=== PATIENT | male | born 1960 | race African-American/Black ===

== ENCOUNTER 2016-12-21 22:04 | Emergency (ER) | payer OTHER ==
[~2016-12-21] VITALS: Ht 182.9 cm; Wt 76.5 kg
[~2016-12-21 22:04] MED LIST: ATEN50TA8 PO; LEVO50TA PO
[2016-12-21] MEDS ORDERED: ACETAMINOPHEN 500 MG TAB PO STA (22:32)
[2016-12-21 22:51] LABS: BASO % 0.2 %; BASO ABS # 0.01 K/uL (0-0.2); COMPLETE YES; EOS % 1.8 %; HEMATOCRIT 39.8 % (42-52); IG% 0.3 %; LYMPH % 34.7 %; LYMPH ABS # 2.29 K/uL (1.2-3.4); MEAN CELL VOLUME 94.1 fL (80-100); MEAN CORPUSCULAR HEMOGLOBIN 33.1 pg (25-34); MEAN CORPUSCULAR HGB CONC 35.2 g/dl (32-36); MEAN PLATELET VOLUME 9.8 fL (7.4-10.4); MONO % 5.6 %; NEUT % 57.4 %; PLATELET COUNT 190 K/uL (130-400); RED BLOOD COUNT 4.23 M/uL (4.7-6.1)
[2016-12-21 22:55] VITALS: Ht 182.9 cm; Wt 76.5 kg
--- NOTE | 2016-12-21 23:01 | DIAGNOSTIC IMAGING REPORT ---
CHEST ONE VIEW PORTABLE CLINICAL HISTORY: Shortness of breath. Chest pain. COMPARISON STUDY: Chest radiograph September or 2010. FINDINGS: Patient is rotated. No pneumothorax or pleural effusion is present. There is no consolidation to suggest pneumonia and there is no evidence of pulmonary edema. Cardiomediastinal silhouette is normal. The appearance of the chest is unchanged. IMPRESSION: No acute cardiopulmonary findings. Electronically signed by: Neto Franklin M.D. 12/21/2016 11:00 PM Dictated Date/Time: 12/21/2016 10:59 PM
[2016-12-21 23:03] VITALS: O2SAT 96
--- NOTE | 2016-12-21 23:13 | EMERGENCY ROOM VISIT NOTE ---
History Report prepared by Giovanni: Mona Jaimes Under the Supervision of: Dr. Jose Sewell M.D. 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 denies cp or NV History of Present Illness The patient is a 56 year old male who presents to the Emergency Room for a cardiac assessment. The patient states that he works 60 hours a week and has for 12 years. He reports that the past 2 months he gets short of breath. He states that he has felt weak for the past month and had headaches daily. He currently rate his pain as a 10/10 in severity. 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 He reports that he was told to come to the ED. The patient states he didn't come till he was done with work. The patient complains of dizziness. The patient denies current chest pain, shortness of breath, and abdominal pain. Source of History: patient Onset: 2 months ago Position: other (global) Symptom Intensity: 10/10 Quality: other (global) Timing: other (episode) Associated Symptoms: + headache, + weakness, No chest pain, No SOB, No abdominal pain Review of Systems See HPI for pertinent positives & negatives. A total of 10 systems reviewed and were otherwise negative. Past Medical & Surgical Medical Problems: (1) Cardiomyopathy (2) Hepatitis C (3) Hypertension (4) SOB (shortness of breath) Family History Patient reports no known family medical history. Social History Smoking Status: Current Every Day Smoker Marital Status: Housing Status: lives with family Occupation Status: employed Current/Historical Medications Scheduled Atenolol (Tenormin), 50 MG PO DAILY Enoxaparin (Lovenox), 80 MG SQ Q12H Levothyroxine Sodium (Levothyroxine Sodium), 50 MCG PO DAILY Warfarin Sod (Coumadin), 5 MG PO DAILY Allergies Coded Allergies: No Known Allergies (Verified , 12/21/16) Physical Exam Vital Signs Date Time Temp Pulse Resp B/P (MAP) Pulse Ox O2 Delivery O2 Flow Rate FiO2 12/22/16 00:13 36.5 64 16 156/99 97 12/21/16 23:03 96 Room Air 12/21/16 22:55 60 16 127/86 96 Room Air 12/21/16 22:30 65 12/21/16 22:12 36.5 71 20 130/98 96 Room Air Physical Exam GENERAL: Patient is a healthy-appearing well-nourished HEAD: Normocephalic atraumatic EYES: Ocular movements intact pupils equal and react to light OROPHARYNX mucous membranes are moist no exudates present no erythema or edema present NECK: Supple no nuchal rigidity CHEST: Good equal expansion LUNGS: Clear and equal to auscultation CARDIAC: Normal S1 and S2 ABDOMEN: Soft nontender no guarding BACK: No CVA tenderness EXTREMITIES: No pain upon palpation normal muscle strength in all groups no clubbing cyanosis or edema NEURO: Patient is following commands and answering questions appropriately. Alert and oriented x3 Cranial Nerves 2-12 grossly intact Medical Decision & Procedures ER Provider Diagnostic Interpretation: Radiology results as stated below per my review and radiologist interpretation: CHEST ONE VIEW PORTABLE CLINICAL HISTORY: Shortness of breath. Chest pain. COMPARISON STUDY: Chest radiograph September or 2010. FINDINGS: Patient is rotated. No pneumothorax or pleural effusion is present. There is no consolidation to suggest pneumonia and there is no evidence of pulmonary edema. Cardiomediastinal silhouette is normal. The appearance of the chest is unchanged. IMPRESSION: No acute cardiopulmonary findings. Electronically signed by: Neto Franklin M.D. 12/21/2016 11:00 PM Dictated Date/Time: 12/21/2016 10:59 PM Laboratory Results 12/21/16 22:37 Red Blood Count 4.23, Mean Corpuscular Volume 94.1, Mean Corpuscular Hemoglobin 33.1, Mean Corpuscular Hemoglobin Concent 35.2, Mean Platelet Volume 9.8, Neutrophils (%) (Auto) 57.4, Lymphocytes (%) (Auto) 34.7, Monocytes (%) (Auto) 5.6, Eosinophils (%) (Auto) 1.8, Basophils (%) (Auto) 0.2, Neutrophils # (Auto) 3.79, Lymphocytes # (Auto) 2.29, Monocytes # (Auto) 0.37, Eosinophils # (Auto) 0.12, Basophils # (Auto) 0.01 8/22/17 22:37 Test 12/21/16 22:37 White Blood Count 6.60 K/uL (4.8-10.8) Red Blood Count 4.23 M/uL (4.7-6.1) Hemoglobin 14.0 g/dL (14.0-18.0) Hematocrit 39.8 % (42-52) Mean Corpuscular Volume 94.1 fL (80-100) Mean Corpuscular Hemoglobin 33.1 pg (25-34) Mean Corpuscular Hemoglobin Concent 35.2 g/dl (32-36) Platelet Count 190 K/uL (130-400) Mean Platelet Volume 9.8 fL (7.4-10.4) Neutrophils (%) (Auto) 57.4 % Lymphocytes (%) (Auto) 34.7 % Monocytes (%) (Auto) 5.6 % Eosinophils (%) (Auto) 1.8 % Basophils (%) (Auto) 0.2 % Neutrophils # (Auto) 3.79 K/uL (1.4-6.5) Lymphocytes # (Auto) 2.29 K/uL (1.2-3.4) Monocytes # (Auto) 0.37 K/uL (0.11-0.59) Eosinophils # (Auto) 0.12 K/uL (0-0.5) Basophils # (Auto) 0.01 K/uL (0-0.2) RDW Standard Deviation 49.0 fL (36.4-46.3) RDW Coefficient of Variation 14.3 % (11.5-14.5) Immature Granulocyte % (Auto) 0.3 % Immature Granulocyte # (Auto) 0.02 K/uL (0.00-0.02) Anion Gap 6.0 mmol/L (3-11) Est Creatinine Clear Calc Drug Dose 58.8 ml/min Estimated GFR () 59.0 Estimated GFR (Non- 50.9 BUN/Creatinine Ratio 11.3 (10-20) Calcium Level 8.4 mg/dl (8.5-10.1) Total Bilirubin 1.1 mg/dl (0.2-1) Aspartate Amino Transf (AST/SGOT) 41 U/L (15-37) Alanine Aminotransferase (ALT/SGPT) 49 U/L (12-78) Alkaline Phosphatase 145 U/L (45-117) Total Creatine Kinase 252 U/L (39-308) Creatine Kinase MB 6.1 ng/ml (0.5-3.6) Creatine Kinase MB Ratio 2.4 (0-3.0) Troponin I 0.046 ng/ml (0-0.045) Pro-B-Type Natriuretic Peptide 2739 pg/ml (0-900) Total Protein 8.1 gm/dl (6.4-8.2) Albumin 3.4 gm/dl (3.4-5.0) Globulin 4.7 gm/dl (2.5-4.0) Albumin/Globulin Ratio 0.7 (0.9-2) Thyroid Stimulating Hormone (TSH) 0.331 uIu/ml (0.300-4.500) Free Thyroxine 1.12 ng/dl (0.80-1.60) Free Triiodothyronine 2.06 pg/ml (2.30-4.20) Chemistry Specimen Hemolysis Labs reviewed by ED physician. Medications Administered Medications (Trade) Dose Ordered Sig/Nikos Route Start Time Stop Time Status Last Admin Dose Admin Acetaminophen (Tylenol Tab) 1,000 mg NOW STAT PO 12/21/16 22:32 12/21/16 22:33 DC 12/21/16 22:53 1,000 MG Warfarin Sodium (Coumadin Tab) 5 mg NOW STAT PO 12/21/16 23:19 12/21/16 23:21 DC 12/21/16 23:38 5 MG Enoxaparin Sodium (Lovenox Inj) 80 mg NOW STAT SQ 12/21/16 23:29 12/21/16 23:30 DC 12/21/16 23:38 80 MG ECG Indication: chest pain Rate (beats per minute): 56 Rhythm: atrial fibrillation Findings: T-wave inversion (Lateral), no acute ischemic change, other (slow ventricular response) ED Course 2227: Past medical records reviewed. The patient was evaluated in room B2. A complete history and physical examination was performed. 2232: Ordered Tylenol Tab 1000 mg PO. 2319: Ordered Coumadin Tab 5 mg PO, Enoxaparin Sodium 1 ea SQ. 2323: I reevaluated the patient and he is doing well. 2329: Ordered Lovenox Inj 80 mg SQ. 2358: Upon reexamination the patient is resting comfortably. The patient is leaving against medical advice. The patient is ready for discharge. Medical Decision Differential diagnosis: Etiologies such as cardiac ischemia, aortic dissection, pulmonary embolism, pneumonia, pneumothorax, musculoskeletal, infections, pericarditis, myocarditis , esophageal rupture, gastrointestinal, as well as others were entertained. This is a 56-year-old male who presents emergency department complaining of shortness of breath that has been on life at least 2 months. The patient appears to be a new onset atrial fibrillation and with his cardiomyopathy an elevated troponin I strongly recommended that he be admitted to the hospital however the patient is adamantly refusing. Based on the fact that the patient isn't in atrial fibrillation I will start him on Lovenox and Coumadin. He is planning on following up with his PCP tomorrow. The patient has demonstrated no significant defect in the decision-making capacity to make choices. The encounter had a good level of communication with language the patient can easily understand. I feel trust was present and conveyed that our action/intentions were the best interest of the patient. The patient was given all relevant information and reiterated the explained risks and benefits. The patient explained the reasoning for refusing treatment clearly. The patient possesses and expresses a set of values and goals, the ability to communicate and understand, and an ability to reason and deliberate. Despite acting emphatically, attentively and with the utmost patient's the patient declined further treatment. I offered options, negotiated, and explored every reasonable choice. I must respect the patient's autonomy and that they feel that their choices are best for them despite the associated risks of leaving without completing the evaluation. The patient was informed about the findings as listed above. All questions were answered and he was pleased with the treatment. Return instructions were outlined and the patient was discharged in stable condition. Impression Primary Impression: Atrial fibrillation Scribe Attestation The scribe's documentation has been prepared under my direction and personally reviewed by me in its entirety. I confirm that the note above accurately reflects all work, treatment, procedures, and medical decision making performed by me. Departure Information Dispostion Against Medical Advice Referrals Graham Parson D.O. (PCP) Forms IMPORTANT VISIT INFORMATION Patient Instructions My [facility] Additional Instructions NEED Follow up with either Dr Chaudhari's office or Dr Parson or Return here You have been examined and treated today on an emergency basis only. This is not a substitute for, or an effort to provide, complete comprehensive medical care. It is impossible to recognize and treat all injuries or illnesses in a single emergency department visit. It is therefore important that you follow up closely with Dr Parson. Call as soon as possible for an appointment. Thank you for your time and consideration. I look forward to speaking with you again soon. Please don't hesitate to call us if you have any questions. Problem Qualifiers Primary Impression: Atrial fibrillation Atrial fibrillation type: unspecified Qualified Codes: I48.91 - Unspecified atrial fibrillation
[2016-12-21 23:17] LABS: BUN/CREATININE RATIO 11.3 (10-20); CALCIUM 8.4 mg/dl (8.5-10.1); CREATININE 1.5 mg/dl (0.60-1.40); POTASSIUM 3.4 mmol/L (3.5-5.1)
[2016-12-21] MEDS ORDERED: ENOXAPARIN 1 MG/KG SQ STA (23:19)
[2016-12-21] MEDS ORDERED: WARFARIN SOD 5 MG TAB PO STA (23:19)
[2016-12-21] MEDS ORDERED: ENOXAPARIN 80 MG/0.8 ML SYR SQ STA (23:29)
[2016-12-21 23:41] LABS: ALB/GLOB RATIO 0.7 (0.9-2); CKMB/CK RATIO 2.4 (0-3.0); THYROID STIMULATING HORMONE 0.331 uIu/ml (0.300-4.500)
[2016-12-22] MEDS ORDERED: WARF5TAB90 PO (00:02)
[2016-12-22] MEDS ORDERED: ENOX120I SQ (00:02)
[2016-12-22 00:13] VITALS: BP 156/99; PULSE 64; TEMP 36.5; O2SAT 97
[2016-12-22] MEDS ORDERED: LEVO50TA6 PO (23:59)
[2016-12-23] MEDS ORDERED: ENOX120I SQ
[2016-12-23] MEDS ORDERED: CMD5 PO (00:02)
[2016-12-28] MEDS ORDERED: LSN10 PO (11:48)
[2016-12-28] MEDS ORDERED: ASPEC81 PO (11:48)
[2016-12-28] MEDS ORDERED: NRV5 PO (11:48)
[2016-12-28] MEDS ORDERED: TPRSR50 PO (11:48)
[2016-12-28] MEDS ORDERED: CTP1 PO (11:48)
[2016-12-28] MEDS ORDERED: CMD5 PO (11:50)
[2016-12-28] MEDS ORDERED: WARF1TAB PO (11:50)
== END 2016-12-22 00:15 | disposition home or self-care (01) ==
LOC: C.EDB 22:06
DX: I48.91 Unspecified atrial fibrillation (principal); I42.9 Cardiomyopathy, unspecified; B19.20 Unspecified viral hepatitis C without hepatic coma; F17.210 Nicotine dependence, cigarettes, uncomplicated; Z79.899 Other long term (current) drug therapy

== ENCOUNTER 2016-12-22 22:53 | Inpatient (IN) | payer OTHER ==
[~2016-12-22] VITALS: Ht 182.9 cm; Wt 71.4 kg
[~2016-12-22 22:53] MED LIST changes: +ENOX120I SQ; +WARF5TAB90 PO
--- NOTE | 2016-12-22 23:23 | EMERGENCY ROOM VISIT NOTE ---
History Report prepared by Giovanni: Aurora Boles Under the Supervision of: Dr. Uday Yeh M.D. First contact with patient: 23:11 Chief Complaint: SHORTNESS OF BREATH Stated Complaint: CHEST PAIN History of Present Illness The patient is a 56 year old male who presents to the Emergency Room with complaints of constant shortness of breath and weakness for 2 months. The patient was in the ED yesterday for the same symptoms. The patient states that his PCP sent him to the ED yesterday. The patient denies nausea, vomiting, and swelling in his legs. He notes his weakness is increased when moving. The patient has a history of high blood pressure and is on thyroid medication. Source of History: patient Onset: 2 months ago Timing: constant Modifying Factors (Worsening): movement Associated Symptoms: + weakness, No nausea, No vomiting Note: Pt denies swelling in his legs Review of Systems See HPI for pertinent positives & negatives. A total of 10 systems reviewed and were otherwise negative. Past Medical & Surgical Medical Problems: (1) Cardiomyopathy (2) Hepatitis C (3) Hypertension (4) SOB (shortness of breath) Family History Patient reports no known family medical history. no pertinent family history stated Social History Smoking Status: Never Smoker Marital Status: Housing Status: lives with family Occupation Status: employed Current/Historical Medications Scheduled Atenolol (Tenormin), 50 MG PO DAILY Enoxaparin (Lovenox), 80 MG SQ Q12H Levothyroxine Sodium (Levothyroxine Sodium), 50 MCG PO DAILY Warfarin Sod (Coumadin), 5 MG PO DAILY Allergies Coded Allergies: No Known Allergies (Verified , 12/21/16) Physical Exam Vital Signs Date Time Temp Pulse Resp B/P (MAP) Pulse Ox O2 Delivery O2 Flow Rate FiO2 12/23/16 00:07 51 20 153/100 100 12/22/16 23:19 96 Room Air 12/22/16 23:01 36.6 70 16 164/101 98 Room Air Physical Exam GENERAL: Patient is tired appearing and in minimal distress HEENT: No acute trauma, normocephalic atraumatic, mucous membranes moist, no nasal congestion, no scleral icterus. NECK: No stridor, no adenopathy, no meningismus, trachea is midline. LUNGS: No dyspnea. Clear to auscultation and equal bilaterally. No wheeze, no rhonchi. HEART: Irregular, Mildly bradycardic ABDOMEN: Soft, nontender, bowel sounds positive, no masses appreciated, no peritonitis. BACK: No midline tenderness, no CVA tenderness EXTREMITIES: Normal motion all extremities, no cyanosis, no edema. NEUROLOGIC: Alert and oriented, no acute motor or sensory deficits, no focal weakness, cranial nerves grossly intact. SKIN: No rash, no jaundice, no diaphoresis. Medical Decision & Procedures Laboratory Results 12/22/16 23:15 Red Blood Count 4.23, Mean Corpuscular Volume 94.1, Mean Corpuscular Hemoglobin 33.1, Mean Corpuscular Hemoglobin Concent 35.2, Mean Platelet Volume 11.0, Neutrophils (%) (Auto) 45.3, Lymphocytes (%) (Auto) 41.4, Monocytes (%) (Auto) 10.1, Eosinophils (%) (Auto) 2.6, Basophils (%) (Auto) 0.4, Neutrophils # (Auto ) 2.25, Lymphocytes # (Auto) 2.06, Monocytes # (Auto) 0.50, Eosinophils # (Auto ) 0.13, Basophils # (Auto) 0.02 12/22/16 23:15 Test 12/22/16 23:15 White Blood Count 4.97 K/uL (4.8-10.8) Red Blood Count 4.23 M/uL (4.7-6.1) Hemoglobin 14.0 g/dL (14.0-18.0) Hematocrit 39.8 % (42-52) Mean Corpuscular Volume 94.1 fL (80-100) Mean Corpuscular Hemoglobin 33.1 pg (25-34) Mean Corpuscular Hemoglobin Concent 35.2 g/dl (32-36) Platelet Count 207 K/uL (130-400) Mean Platelet Volume 11.0 fL (7.4-10.4) Neutrophils (%) (Auto) 45.3 % Lymphocytes (%) (Auto) 41.4 % Monocytes (%) (Auto) 10.1 % Eosinophils (%) (Auto) 2.6 % Basophils (%) (Auto) 0.4 % Neutrophils # (Auto) 2.25 K/uL (1.4-6.5) Lymphocytes # (Auto) 2.06 K/uL (1.2-3.4) Monocytes # (Auto) 0.50 K/uL (0.11-0.59) Eosinophils # (Auto) 0.13 K/uL (0-0.5) Basophils # (Auto) 0.02 K/uL (0-0.2) RDW Standard Deviation 48.7 fL (36.4-46.3) RDW Coefficient of Variation 14.2 % (11.5-14.5) Immature Granulocyte % (Auto) 0.2 % Immature Granulocyte # (Auto) 0.01 K/uL (0.00-0.02) Prothrombin Time 10.4 SECONDS (9.0-12.0) Prothromb Time International Ratio 1.0 (0.9-1.1) Activated Partial Thromboplast Time 28.4 SECONDS (21.0-31.0) Partial Thromboplastin Ratio 1.1 D-Dimer 470 ug/L FEU (0-500) Anion Gap 3.0 mmol/L (3-11) Est Creatinine Clear Calc Drug Dose 64.7 ml/min Estimated GFR () 70.2 Estimated GFR (Non- 60.6 BUN/Creatinine Ratio 11.5 (10-20) Calcium Level 8.8 mg/dl (8.5-10.1) Magnesium Level 2.0 mg/dl (1.8-2.4) Total Bilirubin 1.1 mg/dl (0.2-1) Direct Bilirubin 0.4 mg/dl (0-0.2) Aspartate Amino Transf (AST/SGOT) 41 U/L (15-37) Alanine Aminotransferase (ALT/SGPT) 46 U/L (12-78) Alkaline Phosphatase 134 U/L (45-117) Total Creatine Kinase 230 U/L (39-308) Creatine Kinase MB 5.8 ng/ml (0.5-3.6) Creatine Kinase MB Ratio 2.5 (0-3.0) Troponin I 0.051 ng/ml (0-0.045) Pro-B-Type Natriuretic Peptide 3237 pg/ml (0-900) Total Protein 8.1 gm/dl (6.4-8.2) Albumin 3.5 gm/dl (3.4-5.0) Thyroid Stimulating Hormone (TSH) 0.533 uIu/ml (0.300-4.500) Free Thyroxine 1.08 ng/dl (0.80-1.60) Laboratory results as reviewed by me. Medications Administered Medications (Trade) Dose Ordered Sig/Nikos Route Start Time Stop Time Status Last Admin Dose Admin Potassium Chloride (Klor-Con M10) 40 meq NOW STAT PO 12/23/16 00:31 12/23/16 00:37 DC 12/23/16 00:56 40 MEQ ECG Indication: SOB/dyspnea Rate (beats per minute): 66 Rhythm: atrial fibrillation Findings: T-wave inversion (Lateral), other (No STEMI) Comparison ECG Date: 12/21/16 Change: no significant change ED Course 231: The patient was evaluated in room B12B. A complete history and physical exam was performed. 0030: Discussed the patient's case with Dr. Messer. The patient will be evaluated for further treatment and disposition. 0040: Upon reevaluation, the patient is resting. Discussed results and treatment plan with the patient. He verbalized understanding and agreement with the treatment plan. The patient will be evaluated for further management. Medical Decision Differential: Afib, CHF, ACS, Pulmonary Embolism, Electrolyte abnormality, Liver Failure, Dissection, amongst other etiologies entertained. 56 yr old male with generalized weakness, fatigue, shortness of breath, and heart palpitations. Seen yesterday for this and noted need for admission but he declined. Admits he went to work today but was severely fatigued throughout this and unable to even do his normal duties. He is in new onset Afib which is clearly symptomatic, he has mild Trop elevation though this is stable to yesterdays. BP improving without intervention here. I do not feel that he is doing well as outpatient thus need to come in. Already on blood thinner started yesterday. Medication Reconcilliation Current Medication List: was personally reviewed by me Blood Pressure Screening Patient's blood pressure: Elevated blood pressure (karlene be monitored by hospitalist) Consults Time Called: 27 Consulting Physician: Dr. Messer Returned Call: [phone] Discussed the patient's case. The patient will be evaluated for further treatment and disposition. Impression Primary Impression: A-fib Additional Impressions: Elevated troponin HTN (hypertension) Generalized weakness Scribe Attestation The scribe's documentation has been prepared under my direction and personally reviewed by me in its entirety. I confirm that the note above accurately reflects all work, treatment, procedures, and medical decision making performed by me. Departure Information Dispostion Being Evaluated By Hospitalist Referrals No Doctor, Assigned (PCP) Patient Instructions My [facility] Problem Qualifiers
[2016-12-22 23:28] LABS: BASO % 0.4 %; BASO ABS # 0.02 K/uL (0-0.2); COMPLETE YES; EOS % 2.6 %; HEMATOCRIT 39.8 % (42-52); IG% 0.2 %; LYMPH % 41.4 %; LYMPH ABS # 2.06 K/uL (1.2-3.4); MEAN CELL VOLUME 94.1 fL (80-100); MEAN CORPUSCULAR HEMOGLOBIN 33.1 pg (25-34); MEAN CORPUSCULAR HGB CONC 35.2 g/dl (32-36); MONO % 10.1 %; NEUT % 45.3 %; PLATELET COUNT 207 K/uL (130-400); RED BLOOD COUNT 4.23 M/uL (4.7-6.1); WHITE BLOOD COUNT 4.97 K/uL (4.8-10.8)
[2016-12-22 23:43] LABS: PARTIAL THROMBOPLASTIN RATIO 1.1; PROTHROMBIN TIME (PATIENT) 10.4 SECONDS (9.0-12.0)
[2016-12-22 23:47] LABS: BUN/CREATININE RATIO 11.5 (10-20); CALCIUM 8.8 mg/dl (8.5-10.1); CREATININE 1.3 mg/dl (0.60-1.40); POTASSIUM 3.4 mmol/L (3.5-5.1)
[2016-12-22] MEDS ORDERED: LEVO50TA6 PO (23:59)
[2016-12-23] VITALS (17 sets, daily range): BP systolic 155–208; BP diastolic 90–146; PULSE 56–74; TEMP 36.5–37; O2SAT 97–100; Ht 182.9 cm; Wt 71.4 kg
[2016-12-23] MEDS ORDERED: ENOX120I SQ
[2016-12-23] MEDS ORDERED: CMD5 PO (00:02)
[2016-12-23 00:14] LABS: CKMB/CK RATIO 2.5 (0-3.0); THYROID STIMULATING HORMONE 0.533 uIu/ml (0.300-4.500)
[2016-12-23] MEDS ORDERED: POTASSIUM CHLORIDE 10 MEQ TABCR PO STA (00:31)
[2016-12-23] MEDS ORDERED: ONDANSETRON INJ 2 MG/ML 2 ML VIAL IV PRN (00:45)
[2016-12-23] MEDS ORDERED: NITROGLYCERIN 0.4 MG SL PER TAB CHARGE SL PRN (00:45)
[2016-12-23] MEDS ORDERED: ENOXAPARIN 120 MG/0.8 ML SYR SQ SCH (00:45)
[2016-12-23] MEDS ORDERED: POLYETHYLENE (MIRALAX) 17 GM PACK PO PRN (00:45)
[2016-12-23] MEDS ORDERED: MAGNESIUM HYDROXIDE SUSP 30 ML UDC PO PRN (00:45)
[2016-12-23] MEDS ORDERED: ACETAMINOPHEN 325 MG TAB PO PRN (00:45)
[2016-12-23] MEDS ORDERED: ALUMINUM/MAGNESIUM/SIMETH (MAALOX MAX) 30 ML UDC PO PRN (00:45)
[2016-12-23] MEDS ORDERED: METOPROLOL TARTRATE 1 MG/ML VIAL IV PRN (00:45)
[2016-12-23] MEDS ORDERED: ZOLPIDEM TARTRATE 5 MG TAB PO PRN (00:45)
--- NOTE | 2016-12-23 00:46 | History and Physical ---
History & Physical Date & Time of Service: Dec 23, 2016 at 00:44 Chief Complaint: Chest Pain Primary Care Physician: Graham Parson D.O. History of Present Illness Source: patient This is 56 yo M with past medical hx of Hep C /chronic liver disease / hypothyroidisms presented to ER with complain of SOB , BARRIOS pt mentions he has been experiencing the symptoms for past 2 months , unable to climb up 1 flight of stairs for SOB and fatigue , getting dizzy and lightheaded with activity denies of any chest pain or symptom of palpitation pt was seen in Office of Dr Parson for the symptom on 12/21/16 -was sent to ER for evaluation , pt came to ER yesterday evening -found to be in Aflutter /Afib with rate controlled , pt was asked to be admitted in hospital for further cardiac work up and cardiology eval he refused to be admitted -as he needed to be at work tomorrow , got discharged form ER with Lovenox Sub q and Coumadin pt never managed to sisal picker his meds form Pharmacy was scheduled to see Dr Loera Cardiology at work -he continued to have severe SOB /BARRIOS and Dizzy spell -decided to return to ER Past Medical/Surgical History Medical Problems: (1) Hypertension Status: Chronic Family History Patient reports no known family medical history. Social History Smoking Status: Never Smoker Marital Status: Housing status: lives with family Occupational Status: employed Immunizations History of Influenza Vaccine: Yes History of Tetanus Vaccine?: Yes History of Pneumococcal: Yes History of Hepatitis B Vaccine: Unknown Multi-Drug Resistant Organisms History of MDRO: No Allergies Coded Allergies: No Known Allergies (Verified , 12/21/16) Home Medications Scheduled Atenolol (Tenormin), 50 MG PO DAILY Enoxaparin (Lovenox), 80 MG SQ Q12H Levothyroxine Sodium (Levothyroxine Sodium), 50 MCG PO DAILY Warfarin Sod (Coumadin), 5 MG PO DAILY Review of Systems Constitutional: + weakness, + fatigue Eyes: No worsening of vision, No eye pain, No redness, No discharge, No diplopia, No problem reported ENT: No hearing loss, No unusual epistaxis, No nasal symptoms, No sore throat, No tinnitus, No dental problems, No trouble swallowing, No problem reported Respiratory: + shortness of breath, + dyspnea on exertion Cardiovascular: + palpitations Abdomen: No pain, No nausea, No vomiting, No diarrhea, No constipation, No GI bleeding, No problem reported Musculoskeletal: No joint pain, No muscle pain, No swelling, No calf pain, No problem reported Genitourinary - Male: No hematuria, No dysuria, No urinary frequency, No urinary urgency, No urinary hesitancy, No urinary retention, No urinary incontinence, No penile discharge, No lesions, No impotence, No problem reported Neurologic: + weakness, + problem reported (dizzy spell /lightheaded) Physical Exam Vital Signs Date Time Temp Pulse Resp B/P (MAP) Pulse Ox O2 Delivery O2 Flow Rate FiO2 12/23/16 00:07 51 20 153/100 100 12/22/16 23:19 96 Room Air 12/22/16 23:01 36.6 70 16 164/101 98 Room Air General Appearance: no apparent distress Head: normocephalic, atraumatic Eyes: + abnormal sclerae exam (mildly icteric ) Neck: no JVD Respiratory/Chest: lungs clear, normal breath sounds, no respiratory distress Cardiovascular: + irregularly irregular Abdomen/GI: non tender, soft Extremities/Musculoskelatal: normal inspection, no calf tenderness, normal capillary refill, no pedal edema Neurologic/Psych: alert, normal mood/affect, oriented x 3 Diagnostics Laboratory Results Results Past 24 Hours Test 12/22/16 23:15 12/23/16 00:35 Range/Units White Blood Count 4.97 4.8-10.8 K/uL Red Blood Count 4.23 4.7-6.1 M/uL Hemoglobin 14.0 14.0-18.0 g/dL Hematocrit 39.8 42-52 % Mean Corpuscular Volume 94.1 80-100 fL Mean Corpuscular Hemoglobin 33.1 25-34 pg Mean Corpuscular Hemoglobin Concent 35.2 32-36 g/dl Platelet Count 207 130-400 K/uL Mean Platelet Volume 11.0 7.4-10.4 fL Neutrophils (%) (Auto) 45.3 % Lymphocytes (%) (Auto) 41.4 % Monocytes (%) (Auto) 10.1 % Eosinophils (%) (Auto) 2.6 % Basophils (%) (Auto) 0.4 % Neutrophils # (Auto) 2.25 1.4-6.5 K/uL Lymphocytes # (Auto) 2.06 1.2-3.4 K/uL Monocytes # (Auto) 0.50 0.11-0.59 K/uL Eosinophils # (Auto) 0.13 0-0.5 K/uL Basophils # (Auto) 0.02 0-0.2 K/uL RDW Standard Deviation 48.7 36.4-46.3 fL RDW Coefficient of Variation 14.2 11.5-14.5 % Immature Granulocyte % (Auto) 0.2 % Immature Granulocyte # (Auto) 0.01 0.00-0.02 K/uL Prothrombin Time 10.4 9.0-12.0 SECONDS Prothromb Time International Ratio 1.0 0.9-1.1 Activated Partial Thromboplast Time 28.4 21.0-31.0 SECONDS Partial Thromboplastin Ratio 1.1 Sodium Level 140 136-145 mmol/L Potassium Level 3.4 3.5-5.1 mmol/L Chloride Level 105 98-107 mmol/L Carbon Dioxide Level 32 21-32 mmol/L Anion Gap 3.0 3-11 mmol/L Blood Urea Nitrogen 15 7-18 mg/dl Creatinine 1.30 0.60-1.40 mg/dl Est Creatinine Clear Calc Drug Dose 64.7 ml/min Estimated GFR () 70.2 Estimated GFR (Non- 60.6 BUN/Creatinine Ratio 11.5 10-20 Random Glucose 81 70-99 mg/dl Calcium Level 8.8 8.5-10.1 mg/dl Magnesium Level 2.0 1.8-2.4 mg/dl Total Bilirubin 1.1 0.2-1 mg/dl Direct Bilirubin 0.4 0-0.2 mg/dl Aspartate Amino Transf (AST/SGOT) 41 15-37 U/L Alanine Aminotransferase (ALT/SGPT) 46 12-78 U/L Alkaline Phosphatase 134 45-117 U/L Total Creatine Kinase 230 39-308 U/L Creatine Kinase MB 5.8 0.5-3.6 ng/ml Creatine Kinase MB Ratio 2.5 0-3.0 Troponin I 0.051 0-0.045 ng/ml Total Protein 8.1 6.4-8.2 gm/dl Albumin 3.5 3.4-5.0 gm/dl Thyroid Stimulating Hormone (TSH) 0.533 0.300-4.500 uIu/ml Free Thyroxine 1.08 0.80-1.60 ng/dl Diagnostic Radiology Cxray ; no infiltrate /effusion noted in initial impression ( official reading pending ) EKG Afib /Aflutter @ 56 bpm Impression Assessment and Plan AFIB/Aflutter ( NEW DIAGNOSIS ) ; presents with symptom of BARRIOS /SOB for 2 months with intermittent dizzy spell and lightheadedness confirmed with EKG yesterday in ED and today -remains rate controlled admit to tele ordered for Lopressor 12.5 mg BID ECHO /serial cardiac markers ordered D Dimer 470 -symptom due to PE very unlikely cardiology eval requested IV heparin wt based protocol initiated ( pt had not received any Lovenox dose after yesterday ER visit ) Coumadin 5 mg PO daily ( may not be a candidate for NOAC due to chronic liver disease ) HYPERTENSIVE URGENCY : BP elevated to > 170 was on Atenolol discontinued as Lopressor added for arrhythmia Lisinopril 5 mg daily added cardiology consulted MILD ELEVATION OF TROPONIN : possible due to above need to r/o ACS serial cardiac markers , ECHO asses cardiac wall motion abnormality on IV heparin added Aspirin 81 mg daily /Lopressor fasting lipid panel ordered in AM labs CHRONIC HEPATITIS ( HX OF HEP C ) follows with Madina LORENZO at [facility] not on any treatment for past 3 yrs elevated LFT possible due to above repeat LFT's ordered in AM pt will continue to follow up with GI as out pt HYPOTHYROIDISM : cont Levothyroxine TSH /Free T4 -wnl HYPOKALEMIA : replaced given cardiac arrhythmia follow lytes -K , mg closely FULL CODE DVT PROPHYLAXIS : IV heparin wt based protocol DISPOSITION : expected to be discharged home when medically stable Medicine follow up with Dr Parson will need Cardiology follow up as out pt Level of Care Telemetry Resuscitation Status FULL RESUSCITATION VTE Prophylaxis VTE Risk Assessment Done? Y/N: Yes Risk Level: Moderate Given or contraindicated: Enoxaparin (Lovenox)SQ, Warfarin (Coumadin), Other Anticoagulation (iv heparin ) Additional Copies To Graham Parson D.O.
[2016-12-23] MEDS ORDERED: METOPROLOL TARTRATE 50 MG TAB PO STA (00:51)
[2016-12-23] MEDS ORDERED: LORAZEPAM 0.5 MG TAB PO STA (01:10)
[2016-12-23] MEDS ORDERED: LORAZEPAM 0.5 MG TAB PO PRN (01:15)
[2016-12-23] MEDS ORDERED: HydrALAZINE HCL 20 MG/ML VIAL IV. STA (01:58)
[2016-12-23] MEDS ORDERED: HydrALAZINE HCL 20 MG/ML VIAL ONE (02:02)
[2016-12-23] MEDS ORDERED: HEPARIN IV BOLUS 6,000 UNIT in SYRINGE 0 ML IV STA (02:39)
[2016-12-23] MEDS: HEPARIN 25,000 UNIT/500ML D5W 500 ML IV PRN ×3 (02:48→23:32)
[2016-12-23 03:27] LABS: BENZODIAZEPINE, URINE NEG (NEG); COCAINE,URINE NEG (NEG); PHENCYCLIDINE, URINE NEG (NEG)
[2016-12-23] MEDS ORDERED: NURSING VERBAL MED ORDER ONE (05:00)
[2016-12-23] MEDS: LEVOTHYROXINE 50 MCG TAB PO SCH (06:39)
--- NOTE | 2016-12-23 06:46 | DIAGNOSTIC IMAGING REPORT ---
CHEST ONE VIEW PORTABLE HISTORY: 56 years-old Male acute shortness of breath. COMPARISON: Chest radiograph December 21, 2016. TECHNIQUE: Portable upright AP view of the chest FINDINGS: Cardiac silhouette is upper limits of normal. Mediastinal contours are within normal limits. There is no pneumothorax, pleural effusion or focal airspace consolidation. There is mild convex right curvature of the lower thoracic spine, unchanged. Bones appear grossly intact. IMPRESSION: No acute cardiopulmonary process. The above report was generated using voice recognition software. It may contain grammatical, syntax or spelling errors. Electronically signed by: Juan Galvan M.D. 12/23/2016 6:45 AM Dictated Date/Time: 12/23/2016 6:44 AM
[2016-12-23] MEDS: ASPIRIN 81 MG ECTAB PO SCH (07:37)
--- NOTE | 2016-12-23 08:56 | ECHOCARDIOGRAM REPORT ---
*NOTICE TO RECEIVING REPUBLICAN AGENCY This information is strictly Confidential and protected under [place] law. [place] law prohibits you from making any further disclosure of this information unless further disclosure is expressly permitted by the written consent of the person to whom it pertains or is authorized by law. A general authorization for the release of medical or other information is not sufficient for this purpose. Hospital accepts no responsibility if the information is made available to any other person, INCLUDING THE PATIENT. Interpretation Summary * Name: LUCIA CÁRDENAS Study Date: 12/23/2016 06:39 AM BP: 180/115 mmHg * Patient Location: .2T\S\S237\S\1 HR: 74 * : 1960 (M/d/yyyy) Gender: Male Height: 72 in * Age: 56 yrs Ethnicity: AA Weight: 160 lb * Ordering Physician: Tammy Vázquez * Referring Physician: Graham Parson D.O. * Performed By: Shameka Zamora * * Reason For Study: A-FIB * BSA: 1.9 m2 * -- Conclusions -- * The left ventricle is normal in size. * There is severe concentric left ventricular hypertrophy. * The left ventricular wall motion is normal. * Ejection Fraction = 55-60%. * The left atrium is moderately dilated. * The right atrium is mildly dilated. * There is moderate to severe mitral regurgitation. * There is mild tricuspid regurgitation. Procedure Details * A complete two-dimensional transthoracic echocardiogram was performed (2D, M-mode, Doppler and color flow Doppler). Left Ventricle * The left ventricle is normal in size. * There is severe concentric left ventricular hypertrophy. * Ejection Fraction = 55-60%. * Left ventricular systolic function is normal. * The left ventricular wall motion is normal. Right Ventricle * The right ventricle is normal in size and function. Atria * The left atrium is moderately dilated. * The right atrium is mildly dilated. * No ASD detected; PFO is not assessed. Mitral Valve * The mitral valve anatomy is normal. * There is no mitral valve stenosis. * There is moderate to severe mitral regurgitation. Tricuspid Valve * The tricuspid valve anatomy is normal. * There is no tricuspid stenosis. * There is mild tricuspid regurgitation. Aortic Valve * The aortic valve is trileaflet. * Aortic valve sclerosis mild, without significant aortic valvular stenosis. * No hemodynamically significant valvular aortic stenosis. * Trace aortic regurgitation. Pulmonic Valve * The pulmonic valve is not well visualized. Great Vessels * The aortic root is normal size. Pericardium/Pleural * There is no pericardial effusion. Great Vessels * Normal inferior vena cava diameter and respiratory variation suggests normal central venous pressure. Left Ventricular Diastolic Function * Diastolic dysfunction, Grade II (pseudonormalization pattern). MMode 2D Measurements and Calculations IVSd 1.7 cm IVSs 1.8 cm LVIDd 4.5 cm LVIDs 3.4 cm LVPWd 1.6 cm LVPWs 2.0 cm IVS/LVPW 1.1 FS 24.1 % EDV(Teich) 90.3 ml ESV(Teich) 46.8 ml EF(Teich) 48.1 % EDV(cubed) 88.4 ml ESV(cubed) 38.7 ml EF(cubed) 56.3 % % IVS thick 4.0 % % LVPW thick 29.3 % LV mass(C)d 315.3 grams LV mass(C)dI 162.7 grams/m\S\2 LV mass(C)s 280.8 grams LV mass(C)sI 144.9 grams/m\S\2 CO(Teich) 2.4 l/min CI(Teich) 1.2 l/min/m\S\2 SV(Teich) 43.5 ml SI(Teich) 22.4 ml/m\S\2 CO(cubed) 2.7 l/min CI(cubed) 1.4 l/min/m\S\2 SV(cubed) 49.8 ml SI(cubed) 25.7 ml/m\S\2 ACS 1.7 cm LA dimension 4.4 cm asc Aorta Diam 3.5 cm LVOT diam 2.0 cm LVOT area 3.2 cm\S\2 LVAd ap4 21.9 cm\S\2 LVLd ap4 7.0 cm EDV(MOD-sp4) 56.9 ml LVAs ap4 13.7 cm\S\2 LVLs ap4 5.7 cm ESV(MOD-sp4) 28.6 ml EF(MOD-sp4) 49.7 % LVAd ap2 27.5 cm\S\2 LVLd ap2 7.6 cm EDV(MOD-sp2) 90.8 ml LVAs ap2 16.3 cm\S\2 LVLs ap2 5.7 cm ESV(MOD-sp2) 45.2 ml EF(MOD-sp2) 50.2 % CO(MOD-sp4) 1.6 l/min CI(MOD-sp4) 0.80 l/min/m\S\2 SV(MOD-sp4) 28.3 ml SI(MOD-sp4) 14.6 ml/m\S\2 CO(MOD-sp2) 2.5 l/min CI(MOD-sp2) 1.3 l/min/m\S\2 SV(MOD-sp2) 45.6 ml SI(MOD-sp2) 23.5 ml/m\S\2 Doppler Measurements and Calculations MV E max sharifa 83.9 cm/sec MV dec time 0.16 sec Ao V2 max 106.0 cm/sec Ao max PG 4.5 mmHg Ao max PG (full) 1.2 mmHg KEITH(V,A) 2.7 cm\S\2 KEITH(V,D) 2.7 cm\S\2 LV V1 max PG 3.3 mmHg LV V1 max 91.2 cm/sec MR max sharifa 577.5 cm/sec MR max PG 133.4 mmHg MR mean sharifa 431.7 cm/sec MR mean PG 84.6 mmHg MR VTI 200.6 cm MR PISA 2.9 cm\S\2 MR PISA radius 0.68 cm PA V2 max 54.8 cm/sec PA max PG 1.2 mmHg PI end-d sharifa 133.0 cm/sec TR max sharifa 285.8 cm/sec
[2016-12-23] MEDS ORDERED: LISINOPRIL 5 MG TAB PO SCH ×2 (09:00→17:00)
[2016-12-23] MEDS ORDERED: METOPROLOL TARTRATE 25 MG TAB PO SCH (09:00)
[2016-12-23 09:13] LABS: HEMATOCRIT 40.5 % (42-52); MEAN CORPUSCULAR HEMOGLOBIN 33.2 pg (25-34); PLATELET COUNT 181 K/uL (130-400); WHITE BLOOD COUNT 4.17 K/uL (4.8-10.8)
[2016-12-23 09:34] LABS: BUN/CREATININE RATIO 11.4 (10-20); CHOLESTEROL/HDL RATIO 3.3; CKMB/CK RATIO 2.5 (0-3.0); CREATININE 0.99 mg/dl (0.60-1.40); POTASSIUM 3.3 mmol/L (3.5-5.1)
[2016-12-23 09:35] LABS: PARTIAL THROMBOPLASTIN RATIO 3.5
[2016-12-23] MEDS ORDERED: METOPROLOL TARTRATE 25 MG TAB PO ONE (11:00)
[2016-12-23] MEDS ORDERED: AMLODIPINE BESYLATE 5 MG TAB PO ONE (11:00)
[2016-12-23] MEDS ORDERED: POTASSIUM CHLORIDE 10 MEQ TABCR PO ONE (11:00)
[2016-12-23] MEDS: METOPROLOL TARTRATE 25 MG TAB PO SCH ×2 (13:43→19:51)
--- NOTE | 2016-12-23 14:14 | CARDIOLOGY CONSULTATION ---
DATE OF CONSULTATION: 12/23/2016 REFERRING: Dr. Vázquez. PRIMARY CARE PHYSICIAN: Dr. Parson. INDICATIONS: AFib flutter and exertional dyspnea. HISTORY OF PRESENT ILLNESS: The patient is a 56-year-old male whose history is notable for: 1. Longstanding hypertension. 2. Hypothyroidism, on replacement. 3. Hepatitis C, chronic hepatic disease. The patient presents now after recent evaluation on 12/21/2016 with ER referral for newly noted, AFib flutter, complaints of 1-2 month history of exertional dyspnea and dizziness. At that time, the patient declined admission and was discharged on plans for Lovenox subcutaneous with conversion to Coumadin. He re-reported to the Emergency Room on 12/22/2016 with increasing symptoms of exertional dizziness once again. On presentation, heart rates were relatively well controlled though blood pressure was markedly elevated. He has been referred for hospitalization and further evaluation. He notes no prior history of cardiac disease, notes no history of specific chest pains. He has not been aware of any sense of tachy palpitations. Does feel dizzy and lightheaded when climbing stairs and on exerting himself. Notes no leg pain or cramping. Notes no recent fevers, chills or infections. Notes blood pressures in the past have been labile and elevated at times. Notes no acute weight loss or gain. Does note some sleep disturbances. Notes no fevers, chills or productive cough. Uses no alcohol products. ALLERGIES: None. MEDICATIONS PRIOR TO HOSPITALIZATION: Atenolol 50 mg per day and levothyroxine 137 mcg p.o. daily. PAST SURGICAL HISTORY: None. FAMILY HISTORY: Familial history is not specifically notable for cardiac disease Notes malignancies in family history. SOCIAL HISTORY: The patient works doing [employer]. 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 He smokes 1 pack of cigarettes per week. Uses marijuana on a near daily basis. Uses no other significant [id number]-piqszlv medications. Avoids alcohol. PHYSICAL EXAMINATION: GENERAL: The patient is a thin male currently in no acute distress, though does complain of mild breathlessness when up to the bathroom. VITAL SIGNS: Heart rate 63, blood pressure is 169/90. HEENT: Normocephalic and atraumatic. Nares without discharge. Throat was clear. NECK: Supple without thyromegaly, lymphadenopathy, JVD. There are no carotid bruits. Carotid pulses are 2/4 without delay with brisk upstroke. LUNGS: Clear to auscultation. CARDIOVASCULAR: Regular with normal S1, S2. There is no murmur, gallop or rub. ABDOMEN: Soft, nontender. There is no palpable hepatosplenomegaly. There is no hepatojugular reflux. There are no abdominal bruits audible. EXTREMITIES: Without cyanosis or clubbing. There is no peripheral edema. NEUROLOGIC: The patient is answering questions, moving extremities with strength. There is no brachiofemoral delay on pulses. LABORATORY DATA: Echocardiogram today demonstrates normal left ventricular size and function with severe left ventricular hypertrophy, [id number] right biatrial enlargement, and aozrpoaz-qf-jbtweo mitral insufficiency. LABORATORY STUDIES: White cell count is 4.2, hemoglobin is 14.6, platelet count is 181,000. Electrolytes this morning, sodium is 142, potassium is 3.3, chloride is 109, bicarbonate is 29, BUN is 11, creatinine is 0.99. Troponins are elevated mildly but flat at 0.05 and 0.05. Chest x-ray reveals no infiltrate or edema. AST is mildly elevated at 41. Cholesterol is 102 with an LDL of 82 and HDL of 45. TSH is 0.53, free T4 of 1.08. EKG reveals AFib flutter at a rate of 60 with voltage criteria for left ventricular hypertrophy and deep T-wave inversions crossed across the lateral precordial leads V4, 5 and 6 consistent with strain pattern. IMPRESSION: A 56-year-old male with newly noted atrial flutter and complaints of exertional dyspnea with activities, marked hypertension and hypertensive urgency. PLAN: Severe LVH is noted on echocardiogram and EKGs are consistent with strain pattern. We will continue anticoagulation as ordered. Ultimate plans for conversion to Coumadin, possible consideration for conversion to sinus rhythm in the future. In the meantime, hypertension will be controlled. We will increase beta trevor back up to metoprolol 25 mg 3 times per day as well as adding lisinopril as already ordered as well as amlodipine at 5 mg per day, first dose today. Potassium will be supplemented. We will continue to follow up with the patient in the hospital. The patient will be kept n.p.o. after midnight tonight to allow consideration of future procedures, though current findings do not suggest ischemic heart disease rather than hypertensive urgency with clinical decline. MTDD
[2016-12-23 15:25] LABS: CKMB/CK RATIO 2.4 (0-3.0)
[2016-12-23] MEDS: WARFARIN SOD 5 MG TAB PO SCH (15:32)
[2016-12-23] MEDS ORDERED: WARFARIN SOD 5 MG TAB PO SCH (16:00)
[2016-12-23 16:46] LABS: PARTIAL THROMBOPLASTIN RATIO 2.6
[2016-12-23] MEDS: CLONIDINE HCL 0.1 MG TAB PO PRN (19:52)
--- NOTE | 2016-12-23 21:31 | Progress Note ---
Medicine Progress Note Date & Time of Visit: Dec 23, 2016 at ~ 15:00 . Subjective Persistent dyspnea. No cough. No chest pain. No nausea or vomiting. Persistent headache. . Objective Last 8 Hrs Date Time Temp Pulse Resp B/P (MAP) Pulse Ox O2 Delivery O2 Flow Rate FiO2 12/23/16 20:01 Room Air 12/23/16 19:49 68 165/120 (135) 12/23/16 19:00 36.7 73 18 186/127 (146) 100 Room Air 181/130 (147) 12/23/16 17:12 69 178/120 (139) 176/118 (137) 12/23/16 16:32 74 181/108 (132) 98 Room Air 12/23/16 16:27 Room Air 12/23/16 15:13 36.6 71 18 171/115 (133) 97 Room Air 193/107 (135) 12/23/16 13:41 163/121 (135) 173/99 (123) Physical Exam: General- no distress Neck- no JVD Lungs- clear Heart- irregular Abdomen- + BS, soft, nontender Extremities- no pretibial edema or calf tenderness Neuro- alert . Laboratory Results: Last 24 Hours Test 12/22/16 23:15 12/23/16 03:00 12/23/16 08:58 12/23/16 14:40 White Blood Count 4.97 K/uL 4.17 K/uL Red Blood Count 4.23 M/uL 4.40 M/uL Hemoglobin 14.0 g/dL 14.6 g/dL Hematocrit 39.8 % 40.5 % Mean Corpuscular Volume 94.1 fL 92.0 fL Mean Corpuscular Hemoglobin 33.1 pg 33.2 pg Mean Corpuscular Hemoglobin Concent 35.2 g/dl 36.0 g/dl Platelet Count 207 K/uL 181 K/uL Mean Platelet Volume 11.0 fL 10.0 fL Neutrophils (%) (Auto) 45.3 % Lymphocytes (%) (Auto) 41.4 % Monocytes (%) (Auto) 10.1 % Eosinophils (%) (Auto) 2.6 % Basophils (%) (Auto) 0.4 % Neutrophils # (Auto) 2.25 K/uL Lymphocytes # (Auto) 2.06 K/uL Monocytes # (Auto) 0.50 K/uL Eosinophils # (Auto) 0.13 K/uL Basophils # (Auto) 0.02 K/uL RDW Standard Deviation 48.7 fL 48.1 fL RDW Coefficient of Variation 14.2 % 14.2 % Immature Granulocyte % (Auto) 0.2 % Immature Granulocyte # (Auto) 0.01 K/uL Prothrombin Time 10.4 SECONDS Prothromb Time International Ratio 1.0 Activated Partial Thromboplast Time 28.4 SECONDS 90.5 SECONDS Partial Thromboplastin Ratio 1.1 3.5 D-Dimer 470 ug/L FEU Sodium Level 140 mmol/L 142 mmol/L Potassium Level 3.4 mmol/L 3.3 mmol/L Chloride Level 105 mmol/L 109 mmol/L Carbon Dioxide Level 32 mmol/L 29 mmol/L Anion Gap 3.0 mmol/L 4.0 mmol/L Blood Urea Nitrogen 15 mg/dl 11 mg/dl Creatinine 1.30 mg/dl 0.99 mg/dl Est Creatinine Clear Calc Drug Dose 64.7 ml/min 88.4 ml/min Estimated GFR () 70.2 97.6 Estimated GFR (Non- 60.6 84.2 BUN/Creatinine Ratio 11.5 11.4 Random Glucose 81 mg/dl 114 mg/dl Calcium Level 8.8 mg/dl 9.0 mg/dl Magnesium Level 2.0 mg/dl 2.0 mg/dl Total Bilirubin 1.1 mg/dl Direct Bilirubin 0.4 mg/dl Aspartate Amino Transf (AST/SGOT) 41 U/L Alanine Aminotransferase (ALT/SGPT) 46 U/L Alkaline Phosphatase 134 U/L Total Creatine Kinase 230 U/L 167 U/L 145 U/L Creatine Kinase MB 5.8 ng/ml 4.1 ng/ml 3.5 ng/ml Creatine Kinase MB Ratio 2.5 2.5 2.4 Troponin I 0.051 ng/ml 0.047 ng/ml 0.047 ng/ml Pro-B-Type Natriuretic Peptide 3237 pg/ml Total Protein 8.1 gm/dl Albumin 3.5 gm/dl Thyroid Stimulating Hormone (TSH) 0.533 uIu/ml Free Thyroxine 1.08 ng/dl Urine Opiates Screen NEG Urine Methadone, Qualitative NEG Urine Barbiturates NEG Urine Phencyclidine (PCP) Level NEG Ur Amphetamine/Methamphetamine NEG MDMA (Ecstasy) Screen NEG Urine Benzodiazepines Screen NEG Urine Cocaine Metabolite NEG Urine Marijuana (THC) POS Triglycerides Level 102 mg/dl Cholesterol Level 147 mg/dl HDL Cholesterol 45 mg/dl LDL Cholesterol, Calculated 82 mg/dl VLDL Cholesterol, Calculated 20 mg/dl Cholesterol/HDL Ratio 3.3 Test 12/23/16 16:15 Activated Partial Thromboplast Time 66.8 SECONDS Partial Thromboplastin Ratio 2.6 Other Studies: EKG performed at 00:43 reviewed and demonstrated atrial flutter with variable conduction, ventricular rate of 60 / min, LVH, ST depression and T-wave inversions V4-6. . Assessment & Plan HYPERTENSIVE URGENCY Systolic BP as high as 208, diastolic as high as 146. Echo showed marked LVH. Beta trevor changed to metoprolol. Started on lisinopril. Received dose of amlodipine. Add clonidine PRN. DYSPNEA ON EXERTION Most likely due to combination of atrial flutter and hypertensive heart disease , although ischemic heart disease not excluded. Cardiology consulted. ATRIAL FIB / FLUTTER First noted on 12/21/16. Rate controlled on beta blockers (atenolol --> metoprolol). Receiving IV heparin --> warfarin. HYPOKALEMIA Replace. Follow. HEPATITIS C Noted. VTE PROPHYLAXIS Currently receiving IV heparin. DISPOSITION Expected discharge to home. Internal Medicine follow-up with Dr. Parson. . Current Inpatient Medications: Current Inpatient Medications Medications (Trade) Dose Ordered Sig/Nikos Route Start Time Stop Time Status Last Admin Dose Admin Acetaminophen (Tylenol Tab) 650 mg Q4H PRN PO 12/23/16 00:45 01/22/17 00:44 Al Hydrox/Mg Hydrox/Simethicone (Maalox Max Susp) 15 ml Q4H PRN PO 12/23/16 00:45 01/22/17 00:44 Magnesium Hydroxide (Milk Of Magnesia Susp) 30 ml Q12H PRN PO 12/23/16 00:45 01/22/17 00:44 Zolpidem Tartrate (Ambien Tab) 5 mg HSZ PRN PO 12/23/16 00:45 01/22/17 00:44 Ondansetron HCl (Zofran Inj) 4 mg Q6H PRN IV 12/23/16 00:45 01/22/17 00:44 Nitroglycerin (Nitrostat Tab) 0.4 mg UD PRN SL 12/23/16 00:45 01/22/17 00:44 Aspirin (Ecotrin Tab) 81 mg QAM PO 12/23/16 09:00 01/22/17 08:59 12/23/16 07:37 81 MG Polyethylene (Miralax Powder Packet) 17 gm DAILY PRN PO 12/23/16 00:45 01/22/17 00:44 Levothyroxine Sodium (Synthroid Tab) 50 mcg DAILYBB PO 12/23/16 06:00 01/22/17 06:59 12/23/16 06:39 50 MCG Metoprolol Tartrate (Lopressor Iv) 5 mg Q6 PRN IV 12/23/16 00:45 01/22/17 00:44 Lorazepam (Ativan Tab) 0.5 mg Q8 PRN PO 12/23/16 01:15 01/22/17 01:14 Warfarin Sodium (Coumadin Tab) 5 mg DAILY@16 PO 12/23/16 16:00 01/22/17 15:59 12/23/16 15:32 5 MG Heparin Sodium/ Dextrose 500 ml @ 24 mls/hr [id number] PRN IV 12/23/16 02:45 01/22/17 02:44 12/23/16 10:34 24 MLS/HR Metoprolol Tartrate (Lopressor Tab) 25 mg TID PO 12/23/16 14:00 01/22/17 08:59 12/23/16 19:51 25 MG Lisinopril (Zestril Tab) 5 mg BID17 PO 12/23/16 17:00 01/22/17 08:59 12/23/16 15:43 5 MG Clonidine HCl (Catapres Tab) 0.1 mg Q4H PRN PO 12/23/16 17:30 01/22/17 17:29 12/23/16 19:52 0.1 MG Labetalol HCl (Normodyne IV) 10 mg Q1H PRN IV 12/23/16 21:30 01/22/17 21:29 UNV
[2016-12-23] MEDS: LABETALOL HCL IV 5 MG/ML 20ML IV PRN (23:58)
[2016-12-24] VITALS (10 sets, daily range): BP systolic 113–190; BP diastolic 56–121; PULSE 59–76; TEMP 36.5–36.9; O2SAT 98–100
[2016-12-24] MEDS: LABETALOL HCL IV 5 MG/ML 20ML IV PRN (01:18)
[2016-12-24] MEDS: CLONIDINE HCL 0.1 MG TAB PO PRN ×2 (03:29→18:20)
[2016-12-24] MEDS: LEVOTHYROXINE 50 MCG TAB PO SCH (06:11)
[2016-12-24 06:49] LABS: PARTIAL THROMBOPLASTIN RATIO 2.7
[2016-12-24 07:03] LABS: BUN/CREATININE RATIO 11.8 (10-20); CREATININE 1.1 mg/dl (0.60-1.40); MAGNESIUM 1.9 mg/dl (1.8-2.4); POTASSIUM 3.7 mmol/L (3.5-5.1)
[2016-12-24] MEDS ORDERED: AMLODIPINE BESYLATE 5 MG TAB PO SCH (09:00)
[2016-12-24] MEDS: METOPROLOL TARTRATE 25 MG TAB PO SCH (09:07)
[2016-12-24] MEDS: ASPIRIN 81 MG ECTAB PO SCH (09:07)
[2016-12-24] MEDS ORDERED: LISINOPRIL 10 MG TAB PO SCH (11:00)
[2016-12-24] MEDS ORDERED: POTASSIUM CHLORIDE 20 MEQ TABCR PO STA (11:01)
--- NOTE | 2016-12-24 11:35 | CARDIOLOGY PROGRESS NOTE ---
DATE: 12/24/2016 DATE: 12/24/2016 The patient seen and examined. Chart, medications, telemetry reviewed. SUBJECTIVE: The patient has a headache which she feels has been ongoing since yesterday, not relieved. Blood pressures have been labile and did receive additional dose of clonidine and labetalol overnight to control. Notes no fevers, chills, sweats. Not aware of any tachypalpitations. Remains anticoagulated with heparin with warfarin initiated. OBJECTIVE: VITAL SIGNS: Blood pressure is 144/102, heart rate 76. NECK: Thin. There is no jugular venous distention. No carotid bruits. LUNGS: Clear. CARDIOVASCULAR: Irregularly irregular. There is no S3 gallop. ABDOMEN: Soft, nontender. EXTREMITIES: Without cyanosis or clubbing. There is no peripheral edema. LABORATORY STUDIES: Sodium is 139, potassium 3.7, chloride is 104, bicarb 29, BUN is 13, creatinine is 1.1. IMPRESSION: A 56-year-old male with newly noted atrial fibrillation with labile hypertension, hypertensive urgency. PLAN: Given headaches that are persistent now for greater than 24 hours, a CT scan of the head will be ordered. In addition will increase antihypertensive therapies increasing lisinopril to 10 mg twice per day and changing metoprolol tartrate to metoprolol succinate 50 b.i.d., amlodipine at 5 mg twice per day. Would continue to monitor in hospital given elevated blood pressures. Ultimate goal anticoagulation, possible consideration for cardioversion in 3-4 weeks' time though would like the patient's blood pressures better controlled before hospital discharge. Will follow.
--- NOTE | 2016-12-24 11:43 | DIAGNOSTIC IMAGING REPORT ---
CT SCAN OF THE BRAIN WITHOUT IV CONTRAST CLINICAL HISTORY: Headache. Hypertensive urgency. COMPARISON STUDY: CT of the brain dated 05/25/2010. TECHNIQUE: Unenhanced axial CT scan of the brain is performed from the vertex to the skull base. Automated dose control exposure was utilized. A dose lowering technique was utilized adhering to the principles of ALARA. CT DOSE: 788.63 mGycm FINDINGS: Brain parenchyma: The brain parenchyma is normal in appearance. There is no hemorrhage, mass effect, or evidence of acute territorial ischemia by CT criteria. [place]-white matter is preserved. No extra-axial fluid collection is seen. Ventricles, sulci, cisterns: Normal in configuration. Intracranial vasculature: There is atherosclerotic calcification of the cavernous carotid arteries. Calvarium: Unremarkable. Sinuses and mastoids: Mucosal thickening and frothy secretions are present within the maxillary antra. The remaining paranasal sinuses are clear. The mastoid air cells are well pneumatized. Orbits: The bony orbits are grossly intact. IMPRESSION: No acute intracranial abnormality. Electronically signed by: Kings Grijalva M.D. 12/24/2016 11:42 AM Dictated Date/Time: 12/24/2016 11:40 AM
[2016-12-24] MEDS: LISINOPRIL 10 MG TAB PO SCH (16:56)
[2016-12-24] MEDS: WARFARIN SOD 5 MG TAB PO SCH (16:58)
--- NOTE | 2016-12-24 18:33 | Progress Note ---
Medicine Progress Note Date & Time of Visit: Dec 24, 2016 at 10:00 . Subjective BP's improved. Dyspnea improved. No chest pain. No nausea or vomiting. Persistent diffuse severe headache. . Objective Last 8 Hrs Date Time Temp Pulse Resp B/P (MAP) Pulse Ox O2 Delivery O2 Flow Rate FiO2 12/24/16 18:11 156/106 (123) 149/103 (118) 12/24/16 16:00 Room Air 12/24/16 15:29 36.5 59 18 179/111 (133) 98 Room Air 190/108 (135) 12/24/16 12:00 Room Air 12/24/16 10:44 36.9 76 20 144/102 (116) 99 Room Air 113/56 (75) 137/89 (105) Physical Exam: General- no distress Neck- no JVD Lungs- clear Heart- irregular, no S3, no murmur appreciated Abdomen- + BS, soft, nontender Extremities- no pretibial edema or calf tenderness Neuro- alert . Laboratory Results: Last 24 Hours Test 12/24/16 06:16 Prothrombin Time 11.0 SECONDS Prothromb Time International Ratio 1.0 Activated Partial Thromboplast Time 68.9 SECONDS Partial Thromboplastin Ratio 2.7 Sodium Level 139 mmol/L Potassium Level 3.7 mmol/L Chloride Level 104 mmol/L Carbon Dioxide Level 29 mmol/L Anion Gap 6.0 mmol/L Blood Urea Nitrogen 13 mg/dl Creatinine 1.10 mg/dl Est Creatinine Clear Calc Drug Dose 79.1 ml/min Estimated GFR () 85.9 Estimated GFR (Non- 74.1 BUN/Creatinine Ratio 11.8 Random Glucose 83 mg/dl Calcium Level 9.0 mg/dl Magnesium Level 1.9 mg/dl Total Bilirubin 1.7 mg/dl Direct Bilirubin 0.5 mg/dl Aspartate Amino Transf (AST/SGOT) 44 U/L Alanine Aminotransferase (ALT/SGPT) 47 U/L Alkaline Phosphatase 134 U/L Total Protein 8.4 gm/dl Albumin 3.4 gm/dl Assessment & Plan HYPERTENSIVE URGENCY Systolic BP as high as 208, diastolic as high as 146. Echo showed marked LVH. Meds titrated- now receiving metoprolol succinate, amlodipine, lisinopril. DYSPNEA ON EXERTION Most likely due to combination of atrial flutter and hypertensive heart disease , although ischemic heart disease not excluded. Increase activity as tolerated. ATRIAL FIB / FLUTTER First noted on 12/21/16. Rate controlled on beta blockers (atenolol --> metoprolol). Receiving IV heparin --> warfarin. HYPOKALEMIA Replace. Follow. HYPOTHYROIDISM TSH = 0.533. Continue levothyroxine. HEPATITIS C Noted. SEVERE HEADACHE Need to r/o bleed in light of hypertensive urgency. Check CT. VTE PROPHYLAXIS Currently receiving IV heparin. DISPOSITION Expected discharge to home. Internal Medicine follow-up with Dr. Parson. ADDENDUM: CT head negative. . Consultants: Cardiology . Procedures: cardiac monitoring IV meds echocardiogram CT head . Current Inpatient Medications: Current Inpatient Medications Medications (Trade) Dose Ordered Sig/Nikos Route Start Time Stop Time Status Last Admin Dose Admin Acetaminophen (Tylenol Tab) 650 mg Q4H PRN PO 12/23/16 00:45 01/22/17 00:44 Al Hydrox/Mg Hydrox/Simethicone (Maalox Max Susp) 15 ml Q4H PRN PO 12/23/16 00:45 01/22/17 00:44 Magnesium Hydroxide (Milk Of Magnesia Susp) 30 ml Q12H PRN PO 12/23/16 00:45 01/22/17 00:44 Zolpidem Tartrate (Ambien Tab) 5 mg HSZ PRN PO 12/23/16 00:45 01/22/17 00:44 Ondansetron HCl (Zofran Inj) 4 mg Q6H PRN IV 12/23/16 00:45 01/22/17 00:44 Nitroglycerin (Nitrostat Tab) 0.4 mg UD PRN SL 12/23/16 00:45 01/22/17 00:44 Aspirin (Ecotrin Tab) 81 mg QAM PO 12/23/16 09:00 01/22/17 08:59 12/24/16 09:07 81 MG Polyethylene (Miralax Powder Packet) 17 gm DAILY PRN PO 12/23/16 00:45 01/22/17 00:44 Levothyroxine Sodium (Synthroid Tab) 50 mcg DAILYBB PO 12/23/16 06:00 01/22/17 06:59 12/24/16 06:11 50 MCG Metoprolol Tartrate (Lopressor Iv) 5 mg Q6 PRN IV 12/23/16 00:45 01/22/17 00:44 Lorazepam (Ativan Tab) 0.5 mg Q8 PRN PO 12/23/16 01:15 01/22/17 01:14 Warfarin Sodium (Coumadin Tab) 5 mg DAILY@16 PO 12/23/16 16:00 01/22/17 15:59 12/24/16 16:58 5 MG Heparin Sodium/ Dextrose 500 ml @ 24 mls/hr [id number] PRN IV 12/23/16 02:45 01/22/17 02:44 12/23/16 23:32 24 MLS/HR Clonidine HCl (Catapres Tab) 0.1 mg Q4H PRN PO 12/23/16 17:30 01/22/17 17:29 12/24/16 03:29 0.1 MG Labetalol HCl (Normodyne IV) 10 mg Q1H PRN IV 12/23/16 21:30 01/22/17 21:29 12/24/16 01:18 10 MG Lisinopril (Zestril Tab) 10 mg BID17 PO 12/24/16 17:00 01/22/17 08:59 12/24/16 16:56 10 MG Amlodipine Besylate (Norvasc Tab) 5 mg BID PO 12/24/16 21:00 01/23/17 08:59 Metoprolol Succinate (Toprol Xl Tab) 50 mg BID PO 12/24/16 21:00 01/23/17 20:59
[2016-12-24] MEDS: AMLODIPINE BESYLATE 5 MG TAB PO SCH (20:56)
[2016-12-24] MEDS: METOPROLOL SUCC 50MG EXT REL TAB PO SCH (20:56)
[2016-12-25] VITALS (10 sets, daily range): BP systolic 140–167; BP diastolic 79–112; PULSE 57–72; TEMP 36.5–36.9; O2SAT 98–100
[2016-12-25] MEDS: LEVOTHYROXINE 50 MCG TAB PO SCH (06:03)
[2016-12-25 06:15] LABS: HEMATOCRIT 43.3 % (42-52); MEAN CELL VOLUME 92.7 fL (80-100); MEAN CORPUSCULAR HEMOGLOBIN 33.8 pg (25-34); MEAN CORPUSCULAR HGB CONC 36.5 g/dl (32-36); MEAN PLATELET VOLUME 10.3 fL (7.4-10.4); PLATELET COUNT 188 K/uL (130-400); RED BLOOD COUNT 4.67 M/uL (4.7-6.1); WHITE BLOOD COUNT 3.88 K/uL (4.8-10.8)
[2016-12-25 06:40] LABS: INR 1.1 (0.9-1.1); PARTIAL THROMBOPLASTIN RATIO 3.1; PROTHROMBIN TIME (PATIENT) 12.2 SECONDS (9.0-12.0)
[2016-12-25 06:53] LABS: BUN/CREATININE RATIO 11.5 (10-20); CALCIUM 9.1 mg/dl (8.5-10.1); CREATININE 1.2 mg/dl (0.60-1.40); POTASSIUM 3.9 mmol/L (3.5-5.1)
[2016-12-25] MEDS: METOPROLOL SUCC 50MG EXT REL TAB PO SCH ×2 (07:58→20:06)
[2016-12-25] MEDS: LISINOPRIL 10 MG TAB PO SCH ×2 (07:58→16:09)
[2016-12-25] MEDS: AMLODIPINE BESYLATE 5 MG TAB PO SCH ×2 (07:59→20:06)
[2016-12-25] MEDS: ASPIRIN 81 MG ECTAB PO SCH (07:59)
[2016-12-25 13:14] LABS: PARTIAL THROMBOPLASTIN RATIO 2.4
--- NOTE | 2016-12-25 14:14 | CARDIOLOGY PROGRESS NOTE ---
DATE: 12/25/2016 DATE: 12/25/2016 The patient seen and examined. Chart, medications, telemetry reviewed. SUBJECTIVE: The patient notes no complaints this morning. Headache is better. Blood pressures are trending better, though still elevated at times. Notes no fevers, chills. Notes no bleeding difficulties. OBJECTIVE: VITAL SIGNS: Heart rate is 57. Heart rate has increased significantly with activity. There has been slower heart rates in the 30s and 40s at night, but no significant pauses. Blood pressure is 158/94. NECK: Thin. There is no jugular venous distention. LUNGS: Clear. CARDIOVASCULAR EXAMINATION: Irregular, irregular. There is no S3 gallop. ABDOMEN: Soft, nontender. EXTREMITIES: Without cyanosis or clubbing. There is no peripheral edema. DATA: EKG reveals atrial fibrillation with occasional ventricular ectopic beats, marked LV strain pattern. LABORATORY STUDIES: INR is 1.1. Sodium is 138, potassium is 3.9, chloride is 103, bicarb is 30, BUN is 14, creatinine is 1.2. IMPRESSION: A 56-year-old male presented with symptoms of exertional dyspnea, hypertensive urgency newly noted atrial fibrillation. MEDICATIONS have been titrating upward for blood pressure and heart rate control and are currently reaching stable state. PLAN: Continue current medical regimen and continue initiation of anticoagulation with warfarin. Follow on telemetry for tachy- or bradyarrhythmias. Will review in a.m. Discussed options for future management. Would o consider elective cardioversion in 3 months' time versus ANGE guided cardioversion sooner depending on clinical course.
--- NOTE | 2016-12-25 15:59 | Progress Note ---
Internal Med Progress Note Date of Service: Dec 25, 2016. Provider Documentation: SUBJECTIVE: resting comfortably mild headache no blurry vision no chest pain or sob afebrile OBJECTIVE: Vital Signs-as noted below Exam: General-alert and oriented. Not in distress ENT-normal hearing Neck-no neck masses Lungs-cta b/l no wheezing or crackles Heart-s1 and s2 heard regular rate and rhythm, no murmurs Abdomen-soft bowel sounds present non tender no distension Extremities no edema no erythema Neuro-alert and oriented moves extremities Lab data as noted below. ASSESSMENT & PLAN: HYPERTENSIVE URGENCY Systolic BP as high as 208, diastolic as high as 146. Echo showed severe concentric LVH. medication adjusted as per cardiology recommendations. currently on: metoprolol 50mg bid lisinopril 10mg bid amlodipine 5mg po bid improving will monitor DYSPNEA ON EXERTION Most likely due to combination of atrial flutter and hypertensive heart disease to monitor ATRIAL FIB / FLUTTER First noted on 12/21/16. Rate controlled on beta blockers (atenolol --> metoprolol). Receiving IV heparin --> warfarin. await inr to be therapeutic cardioversion as per cardiology HYPOKALEMIA Replace. Will Follow. HYPOTHYROIDISM TSH = 0.533. On levothyroxine. HEPATITIS C Noted. SEVERE HEADACHE on iv heparin and had elevated BP CT head unremarkable. improving VTE PROPHYLAXIS on IV heparin. DISPOSITION Expected discharge to home. and followup with pcp,cardiology and Coumadin clinic Vital Signs: Date Time Temp Pulse Resp B/P (MAP) Pulse Ox O2 Delivery O2 Flow Rate FiO2 12/25/16 12:00 Room Air 12/25/16 11:45 36.9 57 18 158/94 (115) 98 Room Air 12/25/16 08:00 Room Air 12/25/16 07:53 36.7 57 19 160/108 (125) 99 Room Air 12/25/16 04:00 Room Air 12/25/16 02:53 36.5 66 18 140/79 (99) 98 Room Air 12/25/16 00:00 Room Air 12/24/16 22:45 36.5 63 17 154/102 (119) 98 Room Air 153/103 (120) 12/24/16 20:00 Room Air 12/24/16 18:39 36.9 75 17 143/97 (112) 98 Room Air 12/24/16 18:11 156/106 (123) 149/103 (118) 12/24/16 16:00 Room Air Lab Results: Results Past 24 Hours Test 12/25/16 05:59 12/25/16 12:45 Range/Units White Blood Count 3.88 4.8-10.8 K/uL Red Blood Count 4.67 4.7-6.1 M/uL Hemoglobin 15.8 14.0-18.0 g/dL Hematocrit 43.3 42-52 % Mean Corpuscular Volume 92.7 80-100 fL Mean Corpuscular Hemoglobin 33.8 25-34 pg Mean Corpuscular Hemoglobin Concent 36.5 32-36 g/dl RDW Standard Deviation 47.6 36.4-46.3 fL RDW Coefficient of Variation 14.0 11.5-14.5 % Platelet Count 188 130-400 K/uL Mean Platelet Volume 10.3 7.4-10.4 fL Prothrombin Time 12.2 9.0-12.0 SECONDS Prothromb Time International Ratio 1.1 0.9-1.1 Activated Partial Thromboplast Time 80.8 63.2 21.0-31.0 SECONDS Partial Thromboplastin Ratio 3.1 2.4 Sodium Level 138 136-145 mmol/L Potassium Level 3.9 3.5-5.1 mmol/L Chloride Level 103 98-107 mmol/L Carbon Dioxide Level 30 21-32 mmol/L Anion Gap 5.0 3-11 mmol/L Blood Urea Nitrogen 14 7-18 mg/dl Creatinine 1.20 0.60-1.40 mg/dl Est Creatinine Clear Calc Drug Dose 68.7 ml/min Estimated GFR () 77.3 Estimated GFR (Non- 66.7 BUN/Creatinine Ratio 11.5 10-20 Random Glucose 106 70-99 mg/dl Calcium Level 9.1 8.5-10.1 mg/dl
[2016-12-25] MEDS: WARFARIN SOD 7.5 MG TAB PO SCH (16:09)
[2016-12-25] MEDS: CLONIDINE HCL 0.1 MG TAB PO PRN (22:41)
[2016-12-25] MEDS: LABETALOL HCL IV 5 MG/ML 20ML IV PRN (23:54)
[2016-12-26 04:00] VITALS: BP 157/101; PULSE 66; TEMP 36.8; O2SAT 100
[2016-12-26] MEDS: LEVOTHYROXINE 50 MCG TAB PO SCH (05:52)
[2016-12-26] MEDS: HEPARIN 25,000 UNIT/500ML D5W 500 ML IV PRN ×2 (05:59→21:19)
[2016-12-26 06:27] LABS: INR 1.4 (0.9-1.1); PARTIAL THROMBOPLASTIN RATIO 2.9; PROTHROMBIN TIME (PATIENT) 14.8 SECONDS (9.0-12.0)
[2016-12-26 06:47] LABS: BUN/CREATININE RATIO 10.3 (10-20); CALCIUM 9.6 mg/dl (8.5-10.1); CREATININE 1.2 mg/dl (0.60-1.40); POTASSIUM 4.2 mmol/L (3.5-5.1)
[2016-12-26] MEDS: LISINOPRIL 10 MG TAB PO SCH ×2 (08:10→16:33)
[2016-12-26] MEDS: METOPROLOL SUCC 50MG EXT REL TAB PO SCH ×2 (08:11→19:35)
[2016-12-26] MEDS: ASPIRIN 81 MG ECTAB PO SCH (08:11)
[2016-12-26] MEDS: AMLODIPINE BESYLATE 5 MG TAB PO SCH ×2 (08:11→19:35)
[2016-12-26 08:24] VITALS: BP 163/98; PULSE 71; TEMP 36.5; O2SAT 100
[2016-12-26] MEDS ORDERED: CLONIDINE HCL 0.1 MG TAB PO ONE (11:09)
--- NOTE | 2016-12-26 11:38 | Progress Note ---
Internal Med Progress Note Date of Service: Dec 26, 2016. Provider Documentation: SUBJECTIVE: resting comfortably still has headaches no blurry vision eating ok no chest pain or sob OBJECTIVE: Vital Signs-as noted below Exam: General-alert and oriented. Not in distress ENT-normal hearing Neck-no neck masses Lungs-cta b/l no wheezing or crackles Heart-s1 and s2 heard regular rate and rhythm, no murmurs Abdomen-soft bowel sounds present non tender no distension Extremities no edema no erythema Neuro-alert and oriented moves extremities Lab data as noted below. ASSESSMENT & PLAN: HYPERTENSIVE URGENCY Systolic BP as high as 208, diastolic as high as 146. Echo showed severe concentric LVH. medication adjusted as per cardiology recommendations. currently on: metoprolol 50mg bid lisinopril 10mg bid amlodipine 5mg po bid improving continue same for now needs close followup on discharge DYSPNEA ON EXERTION Most likely due to combination of atrial flutter and hypertensive heart disease to monitor ATRIAL FIB / FLUTTER First noted on 12/21/16. Rate controlled on beta blockers (atenolol --> metoprolol). Receiving IV heparin --> warfarin. await inr to be therapeutic cardioversion as per cardiology increased Coumadin to 7.5 mg daily on 12/25/16 inr 1. 4 today f/u inr HYPOKALEMIA Replace. Will Follow. HYPOTHYROIDISM TSH = 0.533. On levothyroxine. HEPATITIS C Noted. SEVERE HEADACHE on iv heparin and had elevated BP CT head unremarkable. VTE PROPHYLAXIS on IV heparin. DISPOSITION possible d/c in 1-2 days Expected discharge to home. and followup with pcp,cardiology and Coumadin clinic Vital Signs: Date Time Temp Pulse Resp B/P (MAP) Pulse Ox O2 Delivery O2 Flow Rate FiO2 12/26/16 08:24 36.5 71 19 163/98 (119) 100 Room Air 12/26/16 08:00 Room Air 12/26/16 04:00 36.8 66 18 157/101 (119) 100 Room Air 12/26/16 04:00 100 Room Air 12/25/16 23:59 100 Room Air 12/25/16 23:46 36.5 72 18 159/104 (122) 100 Room Air 12/25/16 20:00 100 Room Air 12/25/16 19:12 36.8 67 18 167/111 (129) 100 Room Air 12/25/16 16:23 162/104 (123) 12/25/16 16:00 Room Air 12/25/16 15:35 36.8 71 18 163/112 (129) 100 Room Air 12/25/16 12:00 Room Air 12/25/16 11:45 36.9 57 18 158/94 (115) 98 Room Air Lab Results: Results Past 24 Hours Test 12/25/16 12:45 12/26/16 05:49 Range/Units Activated Partial Thromboplast Time 63.2 76.2 21.0-31.0 SECONDS Partial Thromboplastin Ratio 2.4 2.9 Prothrombin Time 14.8 9.0-12.0 SECONDS Prothromb Time International Ratio 1.4 0.9-1.1 Sodium Level 137 136-145 mmol/L Potassium Level 4.2 3.5-5.1 mmol/L Chloride Level 102 98-107 mmol/L Carbon Dioxide Level 30 21-32 mmol/L Anion Gap 5.0 3-11 mmol/L Blood Urea Nitrogen 12 7-18 mg/dl Creatinine 1.20 0.60-1.40 mg/dl Est Creatinine Clear Calc Drug Dose 68.3 ml/min Estimated GFR () 77.3 Estimated GFR (Non- 66.7 BUN/Creatinine Ratio 10.3 10-20 Random Glucose 90 70-99 mg/dl Calcium Level 9.6 8.5-10.1 mg/dl
[2016-12-26 11:49] VITALS: BP 136/91; PULSE 64; TEMP 36.6; O2SAT 100
--- NOTE | 2016-12-26 12:21 | CARDIOLOGY PROGRESS NOTE ---
DATE: 12/26/2016 CARDIOLOGY CONSULTATION FOLLOWUP NOTE The patient was seen and examined. Chart, medications, and telemetry were reviewed. SUBJECTIVE: The patient notes no complaints, though blood pressures remain significantly labile. He received IV labetalol last evening as well as a p.r.n. dose of clonidine. Blood pressures are trending slightly lower this morning. Telemetry : AFib/flutter with intermittent tachy and bradyarrhythmias. No profound pauses. PHYSICAL EXAMINATION: VITAL SIGNS: Currently heart rate 64 and blood pressure is 136/91. Telemetry reveals AFib/flutter as described. LABORATORY STUDIES: Sodium is 137, potassium is 4.2, chloride is 102, bicarbonate is 30, BUN is 12, and creatinine is 1.2. INR is 1.4 this morning. IMPRESSION: Persistent atrial fibrillation/flutter with tachybrady issues. Plan once again obtain and control hypertension. Clonidine will be added at 0.1 mg twice per day. The patient will be kept n.p.o. after midnight for consideration of ANGE guided synchronized cardioversion. The patient is agreeable to plan. We will review the patient in a.m. before making final decisions. NIKO
[2016-12-26 13:17] LABS: PARTIAL THROMBOPLASTIN RATIO 2.2
[2016-12-26 15:37] VITALS: BP 125/88; PULSE 60; TEMP 36.8; O2SAT 99
[2016-12-26] MEDS: WARFARIN SOD 7.5 MG TAB PO SCH (16:32)
[2016-12-26 19:27] VITALS: BP 170/129; PULSE 85; TEMP 37.1; O2SAT 99
[2016-12-26] MEDS: CLONIDINE HCL 0.1 MG TAB PO SCH (19:35)
[2016-12-26 20:47] VITALS: BP 139/97; PULSE 53
[2016-12-27] VITALS (14 sets, daily range): BP systolic 87–148; BP diastolic 60–101; PULSE 57–86; TEMP 36.3–36.9; O2SAT 98–100
[2016-12-27] MEDS: LEVOTHYROXINE 50 MCG TAB PO SCH (05:46)
[2016-12-27 07:15] LABS: HEMATOCRIT 44.9 % (42-52); MEAN CORPUSCULAR HEMOGLOBIN 31.9 pg (25-34); MEAN CORPUSCULAR HGB CONC 34.3 g/dl (32-36); MEAN PLATELET VOLUME 10.1 fL (7.4-10.4); PLATELET COUNT 190 K/uL (130-400); RED BLOOD COUNT 4.83 M/uL (4.7-6.1); WHITE BLOOD COUNT 3.59 K/uL (4.8-10.8)
[2016-12-27 07:35] LABS: PARTIAL THROMBOPLASTIN RATIO 2.8
[2016-12-27 08:30] LABS: INR 1.9 (0.9-1.1); PROTHROMBIN TIME (PATIENT) 20.6 SECONDS (9.0-12.0)
[2016-12-27] MEDS: HEPARIN 25,000 UNIT/500ML D5W 500 ML IV PRN (08:30)
[2016-12-27] MEDS: AMLODIPINE BESYLATE 5 MG TAB PO SCH ×2 (09:19→19:36)
[2016-12-27] MEDS: ASPIRIN 81 MG ECTAB PO SCH (09:19)
[2016-12-27] MEDS: LISINOPRIL 10 MG TAB PO SCH ×2 (09:19→18:12)
[2016-12-27] MEDS: CLONIDINE HCL 0.1 MG TAB PO SCH ×2 (09:19→19:36)
--- NOTE | 2016-12-27 10:48 | Progress Note ---
Internal Med Progress Note Date of Service: Dec 27, 2016. Provider Documentation: SUBJECTIVE: feeling much better no chest pain or sob no nausea waiting for cardioversion today OBJECTIVE: Vital Signs-as noted below Exam: General-alert and oriented. Not in distress ENT-normal hearing Neck-no neck masses Lungs-cta b/l no wheezing or crackles Heart-s1 and s2 heard regular rate and rhythm, no murmurs Abdomen-soft bowel sounds present non tender no distension Extremities no edema no erythema Neuro-alert and oriented moves extremities Lab data as noted below. ASSESSMENT & PLAN: HYPERTENSIVE URGENCY Systolic BP as high as 208, diastolic as high as 146. Echo showed severe concentric LVH. medication adjusted as per cardiology recommendations. currently on: metoprolol 50mg bid lisinopril 10mg bid amlodipine 5mg po bid improving metoprol changed to clonidine 0.1mg bid by cardiology will monitor needs close followup on discharge DYSPNEA ON EXERTION Most likely due to combination of atrial flutter and hypertensive heart disease to monitor ATRIAL FIB / FLUTTER First noted on 12/21/16. Rate controlled on beta blockers (atenolol --> metoprolol). Receiving IV heparin --> warfarin. await inr to be therapeutic cardioversion as per cardiology increased Coumadin to 7.5 mg daily on 12/25/16 inr 1. 9 today plan for bridget and cardioversion today HYPOKALEMIA Replace. Will Follow. HYPOTHYROIDISM TSH = 0.533. On levothyroxine. HEPATITIS C Noted. SEVERE HEADACHE on iv heparin and had elevated BP CT head unremarkable. VTE PROPHYLAXIS on IV heparin. DISPOSITION possible d/c today or in am Expected discharge to home. and followup with pcp,cardiology and Coumadin clinic Vital Signs: Date Time Temp Pulse Resp B/P (MAP) Pulse Ox O2 Delivery O2 Flow Rate FiO2 12/27/16 08:37 36.3 68 16 144/101 (115) 99 Room Air 136/99 (111) 12/27/16 08:00 Room Air 12/27/16 04:07 36.4 57 18 148/93 (111) 100 Room Air 12/27/16 04:00 Room Air 12/27/16 00:16 36.4 57 18 136/98 (111) 99 Room Air 12/26/16 23:59 Room Air 12/26/16 20:47 53 139/97 (111) 12/26/16 20:00 Room Air 12/26/16 19:27 37.1 85 20 170/129 (143) 99 Room Air 12/26/16 16:00 Room Air 12/26/16 15:37 36.8 60 18 125/88 (100) 99 Room Air 12/26/16 12:00 Room Air 12/26/16 11:49 36.6 64 20 136/91 (106) 100 Room Air Lab Results: Results Past 24 Hours Test 12/26/16 12:49 12/27/16 06:35 Range/Units Activated Partial Thromboplast Time 58.3 73.7 21.0-31.0 SECONDS Partial Thromboplastin Ratio 2.2 2.8 White Blood Count 3.59 4.8-10.8 K/uL Red Blood Count 4.83 4.7-6.1 M/uL Hemoglobin 15.4 14.0-18.0 g/dL Hematocrit 44.9 42-52 % Mean Corpuscular Volume 93.0 80-100 fL Mean Corpuscular Hemoglobin 31.9 25-34 pg Mean Corpuscular Hemoglobin Concent 34.3 32-36 g/dl RDW Standard Deviation 47.2 36.4-46.3 fL RDW Coefficient of Variation 13.7 11.5-14.5 % Platelet Count 190 130-400 K/uL Mean Platelet Volume 10.1 7.4-10.4 fL Prothrombin Time 20.6 9.0-12.0 SECONDS Prothromb Time International Ratio 1.9 0.9-1.1
--- NOTE | 2016-12-27 12:02 | CARDIOLOGY PROGRESS NOTE ---
DATE: 12/27/2016 Patient seen and examined. Chart, medications, telemetry reviewed. SUBJECTIVE: No complaints. Heart rate and blood pressures have been very labile since admission; heart rates dropping to the 40s as well as in to the 140s with activity. Notes no chest pain or discomfort. Notes no orthopnea. Blood pressures have trended better since initiation of medical regimen. OBJECTIVE: VITAL SIGNS: Heart rate is 68, blood pressure is 136/99. HEENT: Normocephalic, atraumatic. NECK: There is no jugular venous distention. No carotid bruits. LUNGS: Clear to auscultation. CARDIOVASCULAR: Irregularly irregular. There is no S3 gallop. ABDOMEN: Soft, nontender. EXTREMITIES: Without cyanosis or clubbing. There is no peripheral edema. LABORATORY DATA: INR is 1.9. White cell count 3.5, hemoglobin is 15.4, hematocrit is 44.9. IMPRESSION: 56-year-old male with newly noted A fib/flutter with rapid ventricular response with borderline tachybrady syndrome, labile hypertension with hypertensive urgency. RECOMMENDATIONS: Given labile heart rates and blood pressures will refer for a ANGE guided synchronized cardioversion later today. Awaiting anesthesia availability. Toprol held this morning with further recommendations pending the results of procedure. Patient now approaching appropriate anticoagulation on heparin and Coumadin.
[2016-12-27] MEDS ORDERED: PROPOFOL IV EMULSION 10 MG/ML 20 ML VIAL IV ONE (12:13)
[2016-12-27] MEDS ORDERED: LIDOCAINE HCL 2% 2 ML VIAL (20MG/ML) ONE (12:13)
--- NOTE | 2016-12-27 12:41 | Cardiology Procedure Brief Nt ---
Preliminary Cardiology Note Procedure Date Dec 27, 2016. Pre-Procedure Diagnosis Atrail fibrillation with RVR Post-Procedure Diagnosis Same, AMBER thrombus Procedure(s) Performed ANGE Extractive Metallurgist Kuldeep Senior Application Security Consultant(s) None Estimated Blood Loss None Preliminary Findings ANGE performed prior to anticipated cardioversion revealed left atrial appendage thrombus and spontaneous contrast in the left atrium. Cardioversion not performed Recommendations Continued anticoagulation Fluids (cc crystalloids) 150 Specimens None Anesthesia Per consult Dr Prieto Complication(s) None Disposition PCU
--- NOTE | 2016-12-27 13:16 | Anesthesiology Progress Note ---
Anesthesia Post Op Note Date & Time Dec 27, 2016 at 13:16 Vital Signs Pain Intensity: 0 Vital Signs Past 12 Hours Date Time Temp Pulse Resp B/P (MAP) Pulse Ox O2 Delivery O2 Flow Rate FiO2 12/27/16 13:05 83 18 116/82 (93) 95 Room Air 12/27/16 12:55 70 18 110/80 (90) 95 Room Air 12/27/16 12:50 68 20 110/83 100 Nasal Cannula 4 12/27/16 12:45 68 20 87/61 100 Nasal Cannula 4 12/27/16 12:40 74 20 96/60 100 Nasal Cannula 4 12/27/16 12:35 67 24 107/60 100 Nasal Cannula 4 12/27/16 12:30 67 24 90/62 100 Nasal Cannula 4 12/27/16 12:25 86 24 115/77 100 Nasal Cannula 4 12/27/16 12:20 80 24 122/100 100 Nasal Cannula 4 12/27/16 11:45 Room Air 12/27/16 08:37 36.3 68 16 144/101 (115) 99 Room Air 136/99 (111) 12/27/16 08:00 Room Air 12/27/16 04:07 36.4 57 18 148/93 (111) 100 Room Air 12/27/16 04:00 Room Air Notes Mental Status: alert / awake / arousable, participated in evaluation Pt Amnestic to Procedure: Yes Nausea / Vomiting: adequately controlled Pain: adequately controlled Airway Patency, RR, SpO2: stable & adequate BP & HR: stable & adequate Hydration State: stable & adequate Anesthetic Complications: no major complications apparent
--- NOTE | 2016-12-27 13:25 | TEE ---
*NOTICE TO RECEIVING CONSTITUTION PARTY AGENCY This information is strictly Confidential and protected under [place] law. [place] law prohibits you from making any further disclosure of this information unless further disclosure is expressly permitted by the written consent of the person to whom it pertains or is authorized by law. A general authorization for the release of medical or other information is not sufficient for this purpose. Hospital accepts no responsibility if the information is made available to any other person, INCLUDING THE PATIENT. Interpretation Summary * Name: LUCIA CÁRDENAS Study Date: 12/27/2016 12:08 PM BP: 122/91 mmHg * Patient Location: S237 HR: 106 * : 1960 (M/d/yyyy) Gender: Male Height: 72 in * Age: 56 yrs Ethnicity: AA Weight: 157 lb * Ordering Physician: Chan Light MD, FACC * Referring Physician: Chan Light MD, FACC * Performed By: Brandon Langston RCS * * Reason For Study: A-FIB, Pre C/V, Eval for CSOE * BSA: 1.9 m2 * -- Conclusions -- * The left atrium is mildly dilated. * There is a thrombus seen in the left atrial appendage. * Spontaneous contrast in LA. * Spontaneous contrast in left atrial appendage. Procedure Details * ANGE Probe #1 utilized for procedure. * The study was performed in Cardiac Catheterization Lab. * Time out was conducted by the physician, nurse, and driver service technician with positive identification of patient and procedure. * Informed consent for Transesophageal Echocardiogram was obtained prior to the procedure. * An intravenous line was placed. A topical anesthetic agent was used for oropharangeal anesthesia. A bite block was inserted. * Sedation performed by the anesthesia department. * A multifrequency, multiplane transesopheageal echocardiographic endoscope was inserted and manipulated in the standard fashion to achieve multiplane views. * The transesophageal probe was passed without difficulty. * Probe inserted at 1226 Probe removed at 1229 * A 2D transesophageal echocardiogram with spectral and color flow Doppler was performed. * The patient tolerated the procedure well without evidence of orophangeal or esophageal trauma. * A 2D transesophageal echocardiogram was performed. * A 2D transesophageal echocardiogram with color flow Doppler was performed. * A 2D transesophageal echocardiogram with Doppler and color flow Doppler was performed. Left Ventricle * The left ventricle is normal in size. * There is severe concentric left ventricular hypertrophy. * Left ventricular systolic function is normal. * Ejection Fraction = 55-60%. * The left ventricular wall motion is normal. Atria * The left atrium is mildly dilated. * There is a thrombus seen in the left atrial appendage. * Spontaneous contrast in LA. * Spontaneous contrast in left atrial appendage. * Right atrial size is normal. * The interatrial septum is intact with no evidence for an atrial septal defect. Mitral Valve * The mitral valve anatomy is normal. * There is trace mitral regurgitation. Tricuspid Valve * The tricuspid valve anatomy is normal. * There is trace tricuspid regurgitation. * Doppler findings do not suggest pulmonary hypertension. Aortic Valve * The aortic valve is normal in structure and function. Pulmonic Valve * The pulmonic valve is normal in structure and function. Great Vessels * The aortic root is normal size. * The aortic arch and descending thoracic aorta are normal in size and free of atheroma.
[2016-12-27 15:51] LABS: PARTIAL THROMBOPLASTIN RATIO 2.5
[2016-12-27] MEDS: WARFARIN SOD 7.5 MG TAB PO SCH (18:12)
[2016-12-27] MEDS: METOPROLOL SUCC 50MG EXT REL TAB PO SCH (18:12)
[2016-12-28] MEDS: HEPARIN 25,000 UNIT/500ML D5W 500 ML IV PRN (03:31)
[2016-12-28 03:32] VITALS: BP 129/86; PULSE 41; TEMP 36.3; O2SAT 99
[2016-12-28] MEDS: LEVOTHYROXINE 50 MCG TAB PO SCH (05:34)
[2016-12-28 06:42] LABS: INR 2.5 (0.9-1.1); PARTIAL THROMBOPLASTIN RATIO 2.9; PROTHROMBIN TIME (PATIENT) 27.7 SECONDS (9.0-12.0)
[2016-12-28] MEDS ORDERED: NURSING VERBAL MED ORDER ONE (07:35)
[2016-12-28 08:13] VITALS: BP 135/111; PULSE 56; TEMP 36.7; O2SAT 97
[2016-12-28 08:14] VITALS: BP 153/115
[2016-12-28] MEDS: AMLODIPINE BESYLATE 5 MG TAB PO SCH (08:26)
[2016-12-28] MEDS: LISINOPRIL 10 MG TAB PO SCH (08:26)
[2016-12-28] MEDS: CLONIDINE HCL 0.1 MG TAB PO SCH (08:26)
[2016-12-28] MEDS: ASPIRIN 81 MG ECTAB PO SCH (08:26)
[2016-12-28] MEDS: METOPROLOL SUCC 50MG EXT REL TAB PO SCH (09:28)
[2016-12-28] MEDS ORDERED: ~HEPARIN DRIP~STOP ORDER SCH (09:45)
--- NOTE | 2016-12-28 11:05 | Progress Note ---
Internal Med Progress Note Date of Service: Dec 28, 2016. Provider Documentation: SUBJECTIVE: no headaches today afebrile no nausea no chest pain or sob ok for discharge OBJECTIVE: Vital Signs-as noted below Exam: General-alert and oriented. Not in distress ENT-normal hearing Neck-no neck masses Lungs-cta b/l no wheezing or crackles Heart-s1 and s2 heard regular rate and rhythm, no murmurs Abdomen-soft bowel sounds present non tender no distension Extremities no edema no erythema Neuro-alert and oriented moves extremities Lab data as noted below. ASSESSMENT & PLAN: HYPERTENSIVE URGENCY Systolic BP as high as 208, diastolic as high as 146. Echo showed severe concentric LVH. medication adjusted as per cardiology recommendations. currently on: metoprolol 50mg bid lisinopril 10mg bid amlodipine 5mg po bid clonidine 0.1mg bid better controlled needs close followup on discharge DYSPNEA ON EXERTION Most likely due to combination of atrial flutter and hypertensive heart disease to monitor stable now ATRIAL FIB / FLUTTER First noted on 12/21/16. Rate controlled on beta blockers (atenolol --> metoprolol). Receiving IV heparin --> warfarin. await inr to be therapeutic cardioversion as per cardiology increased Coumadin to 7.5 mg daily on 12/25/16 inr 2.5 today s/p ANGE yesterday 12/27/16 which showed thrombus in atrial appendage and cardioversion was not done. HYPOKALEMIA Replace. Will Follow. HYPOTHYROIDISM TSH = 0.533. On levothyroxine. HEPATITIS C Noted. f/u with pcp SEVERE HEADACHE on iv heparin and had elevated BP CT head unremarkable. improved now VTE PROPHYLAXIS inr therapeutic DISPOSITION plan for d/c today and followup with pcp,cardiology and Coumadin clinic Vital Signs: Date Time Temp Pulse Resp B/P (MAP) Pulse Ox O2 Delivery O2 Flow Rate FiO2 12/28/16 09:56 36.7 56 18 97 Room Air 12/28/16 08:14 153/115 (128) 12/28/16 08:13 36.7 56 18 135/111 (119) 97 Room Air 12/28/16 08:00 Room Air 12/28/16 04:00 Room Air 12/28/16 03:32 36.3 41 18 129/86 (100) 99 Room Air 12/27/16 23:59 Room Air 12/27/16 23:42 36.6 64 18 133/69 (90) 98 Room Air 12/27/16 20:00 Room Air 12/27/16 19:15 36.7 75 18 132/89 (103) 98 Room Air 12/27/16 16:57 36.7 60 18 124/91 (102) 98 Room Air 12/27/16 16:00 Room Air 12/27/16 15:18 36.9 67 18 134/89 (104) 98 Room Air 12/27/16 13:15 83 18 105/82 (90) 95 Room Air 12/27/16 13:05 83 18 116/82 (93) 95 Room Air 12/27/16 12:55 70 18 110/80 (90) 95 Room Air 12/27/16 12:50 68 20 110/83 100 Nasal Cannula 4 12/27/16 12:45 68 20 87/61 100 Nasal Cannula 4 12/27/16 12:40 74 20 96/60 100 Nasal Cannula 4 12/27/16 12:35 67 24 107/60 100 Nasal Cannula 4 12/27/16 12:30 67 24 90/62 100 Nasal Cannula 4 12/27/16 12:25 86 24 115/77 100 Nasal Cannula 4 12/27/16 12:20 80 24 122/100 100 Nasal Cannula 4 12/27/16 11:45 Room Air Lab Results: Results Past 24 Hours Test 12/27/16 15:21 12/28/16 05:49 Range/Units Activated Partial Thromboplast Time 65.0 75.6 21.0-31.0 SECONDS Partial Thromboplastin Ratio 2.5 2.9 Prothrombin Time 27.7 9.0-12.0 SECONDS Prothromb Time International Ratio 2.5 0.9-1.1
--- NOTE | 2016-12-28 11:09 | CARDIOLOGY PROGRESS NOTE ---
DATE: 12/28/2016 DATE: 12/28/2016 The patient seen and examined. Chart, medications, telemetry reviewed. SUBJECTIVE: The patient feels well this morning, feels improved since admission. Blood pressures remain labile, but better controlled. Heart rate is also labile, but also better controlled. Notes no dizziness or lightheadedness. Notes no syncope or near syncope. OBJECTIVE: VITAL SIGNS: Heart rate is 56, blood pressure is 129/86 this morning, elevated diastolic blood pressures intermittently. NECK: Thin. There is no jugular venous distention. LUNGS: Clear. CARDIOVASCULAR EXAMINATION: Irregular, irregular. ABDOMEN: Soft, nontender. EXTREMITIES: Without cyanosis or clubbing. There is no peripheral edema. DATA: INR is 2.5. IMPRESSION: A 56-year-old male with issues as follows: 1. Atrial fibrillation with rapid ventricular response, now better rate controlled. The patient does have occasional bradyarrhythmias at night though are well tolerated and asymptomatic. Would continue current dosing therapies. 2. Left atrial thrombus precluding synchronized cardioversion. Will anticipate full anticoagulation with warfarin through Coumadin clinic. Will reassess for possible synchronized cardioversion in the next months' time. 3. Hypertension with hypertensive urgency longstanding, history of poorly controlled hypertension on multiple drug regimen without improving blood pressures. PLAN: Continue therapies as prescribed. We will follow up with patient in approximately 3 weeks as an outpatient. The patient may return to work in the next 2 days. He is to report any symptoms or complaints in the interim. Recommend Coumadin clinic referral.
[2016-12-28] MEDS ORDERED: TPRSR50 PO (11:48)
[2016-12-28] MEDS ORDERED: CTP1 PO (11:48)
[2016-12-28] MEDS ORDERED: ASPEC81 PO (11:48)
[2016-12-28] MEDS ORDERED: NRV5 PO (11:48)
[2016-12-28] MEDS ORDERED: LSN10 PO (11:48)
[2016-12-28 11:49] VITALS: BP 116/79; PULSE 59; TEMP 36.8; O2SAT 100
[2016-12-28] MEDS ORDERED: CMD5 PO (11:50)
[2016-12-28] MEDS ORDERED: WARF1TAB PO (11:50)
--- NOTE | 2016-12-28 11:56 | Discharge Instructions ---
Discharge Instructions Date of Service Dec 28, 2016. Admission Reason for Admission: SOB Discharge Discharge Diagnosis / Problem: HYPERTENSIVE URGENCY, A FIB Discharge Goals Goal(s): Decrease discomfort, Improve function Activity Recommendations Activity Limitations: resume your previous activity ( TOLERATED) . Instructions / Follow-Up Instructions / Follow-Up FOLLOWUP WITH FAMILY DOCTOR ON AT 11AM. FOLLOWUP WITH CARDIOLOGY IN 3 WEEKS. COUMADIN 7MG ( ONE 5MG TABLET AND TWO 1MG TABLETS) PO DAILY IN PM UNTIL FURTHER INSTRUCTIONS FROM COUMADIN CLINIC. LAB: PT/INR IN COUPLE OF DAYS AND FOLLOW RESULTS WITH COUMADIN CLINIC. COUMADIN CLINIC NOTIFIED. Current Hospital Diet Patient's current hospital diet: AHA Diet (Heart Healthy) Discharge Diet Recommended Diet: AHA Diet (Heart Healthy) Pending Studies Studies pending at discharge: no Laboratory Results Lipid Panel Test 12/23/16 08:58 Range/Units Triglycerides Level 102 0-150 mg/dl Cholesterol Level 147 0-200 mg/dl HDL Cholesterol 45 mg/dl Cholesterol/HDL Ratio 3.3 LDL Cholesterol, Calculated 82 mg/dl Medical Emergencies . Who to Call and When: Medical Emergencies: If at any time you feel your situation is an emergency, please call 911 immediately. . Non-Emergent Contact Non-Emergency issues call your: Primary Care Provider . . "Provider Documentation" section prepared by Bryan Bajwa. . VTE Core Measure Inpt VTE Proph given/why not?: Warfarin (Coumadin), Other Anticoagulation (iv heparin )
--- NOTE | 2016-12-28 18:53 | Discharge Summary ---
Discharge Summary Date of Service Dec 28, 2016. Discharge Summary Admission Date: Dec 23, 2016 at 00:34 Discharge Date: Dec 28, 2016 Discharge Disposition: Home Principal Diagnosis: UNCONTROLLED HTN A FIB Secondary Diagnoses/Problems: Hep C /chronic liver disease /hypothyroidisms Procedures: cardiac monitoring IV meds echocardiogram CT head . Consultations: Cardiology . Medication Reconciliation New Medications: Warfarin Sod (Coumadin) 5 Mg Tab 5 MG PO DAILY, #30 1 Refill COUMADIN 7MG( 5+ 2) DAILY IN PM UNTIL FURTHER NOTICE FORM COUMADIN CLINIC Warfarin Sodium (Coumadin) 1 Mg Tab 2 MG PO DAILY, #60 TAB 1 Refill COUMADIN 7MG( 5+ 2) DAILY IN PM UNTIL FURTHER NOTICE FORM COUMADIN CLINIC Amlodipine Besylate (Amlodipine Besylate) 5 Mg Tab 5 MG PO BID, #60 TAB 1 Refill Aspirin (Aspirin EC Low Dose) 81 Mg Ectab 81 MG PO QAM, #30 1 Refill Clonidine HCl (Clonidine HCl) 0.1 Mg Tab 0.1 MG PO BID, #60 TAB 1 Refill Lisinopril (Zestril) 10 Mg Tab 10 MG PO BID17, #60 TAB 1 Refill Metoprolol Succinate (Metoprolol Succinate ER) 50 Mg Tabcr 50 MG PO BID17, #60 1 Refill Continued Medications: Levothyroxine Sodium (Levothyroxine Sodium) 50 Mcg Tab 50 MCG PO DAILY Discontinued Medications: Atenolol (Tenormin) 50 Mg Tab 50 MG PO DAILY, 0 Refills Enoxaparin (Lovenox) 120 Mg/0.8 Ml Inj 80 MG SQ Q12H, SYR Warfarin Sod (Coumadin) 5 Mg Tab 5 MG PO DAILY Admission Information HPI (per Admitting provider): This is 56 yo M with past medical hx of Hep C /chronic liver disease / hypothyroidisms presented to ER with complain of SOB , BARRIOS pt mentions he has been experiencing the symptoms for past 2 months , unable to climb up 1 flight of stairs for SOB and fatigue , getting dizzy and lightheaded with activity denies of any chest pain or symptom of palpitation pt was seen in Office of Dr Parson for the symptom on 12/21/16 -was sent to ER for evaluation , pt came to ER yesterday evening -found to be in Aflutter /Afib with rate controlled , pt was asked to be admitted in hospital for further cardiac work up and cardiology eval he refused to be admitted -as he needed to be at work tomorrow , got discharged form ER with Lovenox Sub q and Coumadin 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 meds form Pharmacy was scheduled to see Dr Loera Cardiology at work -he continued to have severe SOB /BARRIOS and Dizzy spell -decided to return to ER Physical Exam (per Admitting): General Appearance: no apparent distress Head: normocephalic, atraumatic Eyes: + abnormal sclerae exam (mildly icteric ) Neck: no JVD Respiratory/Chest: lungs clear, normal breath sounds, no respiratory distress Cardiovascular: + irregularly irregular Abdomen/GI: non tender, soft Extremities/Musculoskelatal: normal inspection, no calf tenderness, normal capillary refill, no pedal edema Neurologic/Psych: alert, normal mood/affect, oriented x 3 Hospital Course HYPERTENSIVE URGENCY Systolic BP as high as 208, diastolic as high as 146. Echo showed severe concentric LVH. medication adjusted as per cardiology recommendations. currently on: metoprolol 50mg bid lisinopril 10mg bid amlodipine 5mg po bid clonidine 0.1mg bid better controlled needs close followup on discharge DYSPNEA ON EXERTION Most likely due to combination of atrial flutter and hypertensive heart disease to monitor stable now ATRIAL FIB / FLUTTER First noted on 12/21/16. Rate controlled on beta blockers (atenolol --> metoprolol). Receiving IV heparin --> warfarin. await inr to be therapeutic cardioversion as per cardiology increased Coumadin to 7.5 mg daily on 12/25/16 inr 2.5 today s/p ANGE yesterday 12/27/16 which showed thrombus in atrial appendage and cardioversion was not done. F/U WITH CARDIOLOGY F/U WITH COUMADIN CLINIC HYPOKALEMIA Replace. Will Follow. HYPOTHYROIDISM TSH = 0.533. On levothyroxine. HEPATITIS C Noted. f/u with pcp SEVERE HEADACHE on iv heparin and had elevated BP CT head unremarkable. improved now DISCHARGED HOME Total time spent on discharge = 35MINUTES This includes examination of the patient, discharge planning, medication reconciliation, and communication with other providers. Discharge Instructions Discharge Instructions Date of Service Dec 28, 2016. Admission Reason for Admission: SOB Discharge Discharge Diagnosis / Problem: HYPERTENSIVE URGENCY, A FIB Discharge Goals Goal(s): Decrease discomfort, Improve function Activity Recommendations Activity Limitations: resume your previous activity ( TOLERATED) . Instructions / Follow-Up Instructions / Follow-Up FOLLOWUP WITH FAMILY DOCTOR ON AT 11AM. FOLLOWUP WITH CARDIOLOGY IN 3 WEEKS. COUMADIN 7MG ( ONE 5MG TABLET AND TWO 1MG TABLETS) PO DAILY IN PM UNTIL FURTHER INSTRUCTIONS FROM COUMADIN CLINIC. LAB: PT/INR IN COUPLE OF DAYS AND FOLLOW RESULTS WITH COUMADIN CLINIC. COUMADIN CLINIC NOTIFIED. Current Hospital Diet Patient's current hospital diet: AHA Diet (Heart Healthy) Discharge Diet Recommended Diet: AHA Diet (Heart Healthy) Pending Studies Studies pending at discharge: no Laboratory Results Lipid Panel Test 12/23/16 08:58 Range/Units Triglycerides Level 102 0-150 mg/dl Cholesterol Level 147 0-200 mg/dl HDL Cholesterol 45 mg/dl Cholesterol/HDL Ratio 3.3 LDL Cholesterol, Calculated 82 mg/dl Medical Emergencies . Who to Call and When: Medical Emergencies: If at any time you feel your situation is an emergency, please call 911 immediately. . Non-Emergent Contact Non-Emergency issues call your: Primary Care Provider
== END 2016-12-28 12:10 | disposition home or self-care (01) | DRG 305 ==
LOC: C.EDB 22:55 → C.2T 12-23 00:34 → ENRESERV 12-23 00:47
PROVIDERS: ADMIT Hospitalist; ATTEND Internal Medicine
PROC: B246ZZ4 Ultrasonography of Right and Left Heart, Transesophageal (ICD-10-PCS; principal; 2016-12-27 12:05)
DX: I11.9 Hypertensive heart disease without heart failure (principal); I16.0 Hypertensive urgency; I48.1 Persistent atrial fibrillation; I48.92 Unspecified atrial flutter; I42.9 Cardiomyopathy, unspecified; I51.3 Intracardiac thrombosis, not elsewhere classified; B18.2 Chronic viral hepatitis C; R74.8 Abnormal levels of other serum enzymes; E03.9 Hypothyroidism, unspecified; E87.6 Hypokalemia

== ENCOUNTER 2017-01-16 12:50 | Emergency (ER) | payer OTHER ==
[~2017-01-16] VITALS: Ht 182.9 cm; Wt 67.9 kg
[~2017-01-16 12:50] MED LIST changes: +ASPEC81 PO; -ATEN50TA8 PO; +CMD5 PO; +CTP1 PO; -ENOX120I SQ; -LEVO50TA PO; +LEVO50TA6 PO; +LSN10 PO; +NRV5 PO; +TPRSR50 PO; +WARF1TAB PO; -WARF5TAB90 PO
[2017-01-16 12:54] VITALS: TEMP 37.2; Ht 182.9 cm; Wt 67.9 kg
--- NOTE | 2017-01-16 13:11 | EMERGENCY ROOM VISIT NOTE ---
History Report prepared by Giovanni: Elisabeth Arzola Under the Supervision of: Dr. Jeremy Castro M.D. First contact with patient: 12:58 Chief Complaint: LEG PAIN,LEG INJURY Stated Complaint: PAIN IN LEFT SIDE OF LEG History of Present Illness The patient is a 56 year old male who presents to the Emergency Room with complaints of constant left leg pain beginning 6 hours ago. 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 He reports that today at work he began feeling throbbing pain inside his leg. He notes that he is on Coumadin. The patient states that he has issues with his liver and has not taken anything for the pain. He complains of swelling inside the leg. He denies any headache, diarrhea, urinary symptoms, nausea, vomiting, cough, fever, trauma, back pain, and abdominal pain. Source of History: patient Onset: this morning Position: leg (left) Quality: other (throbbing) Timing: constant Associated Symptoms: No fevers, No headache, No cough, No nausea, No vomiting, No abdominal pain, No back pain, No diarrhea, No urinary symptoms Note: Pt complains of swelling. Review of Systems See HPI for pertinent positives and negatives. A total of ten systems were reviewed and were otherwise negative. Past Medical & Surgical Medical Problems: (1) Cardiomyopathy (2) Hepatitis C (3) Hypertension (4) SOB (shortness of breath) Family History Patient reports no known family medical history. Social History Smoking Status: Never Smoker Marital Status: Housing Status: lives with family Occupation Status: employed Current/Historical Medications Scheduled Amlodipine Besylate (Amlodipine Besylate), 5 MG PO BID Aspirin (Aspirin EC Low Dose), 81 MG PO QAM Clonidine HCl (Clonidine HCl), 0.1 MG PO BID Levothyroxine Sodium (Levothyroxine Sodium), 50 MCG PO DAILY Lisinopril (Zestril), 10 MG PO BID17 Metoprolol Succinate (Metoprolol Succinate ER), 50 MG PO BID17 Warfarin Sodium (Coumadin), 5 MG PO QAM Warfarin Sodium (Coumadin), 2.5 MG PO HS Scheduled PRN Lidocaine (Lidoderm Patch 5%), 1 PATCH TD DAILY PRN for Pain Allergies Coded Allergies: No Known Allergies (Verified , 01/16/17) Physical Exam Vital Signs Date Time Temp Pulse Resp B/P (MAP) Pulse Ox O2 Delivery O2 Flow Rate FiO2 01/16/17 15:49 71 18 132/91 97 01/16/17 12:54 37.2 102 20 144/79 98 Room Air Physical Exam GENERAL: Awake, alert, well-appearing, in no distress, thin appearing HENT: Normocephalic, atraumatic. Dry mucous membranes. EYES: Normal conjunctiva. Sclera non-icteric. NECK: Supple. No nuchal rigidity. FROM. No JVD. RESPIRATORY: Clear to auscultation. CARDIAC: Regular rate, normal rhythm. Extremities warm and well perfused. Pulses equal. ABDOMEN: Soft, non-distended. No tenderness to palpation. No rebound or guarding. No masses. RECTAL: Deferred. MUSCULOSKELETAL: Chest examination reveals no tenderness. The back is symmetrical on inspection without obvious abnormality. There is no CVA tenderness to palpation. No joint edema. LOWER EXTREMITIES: Calves are equal size bilaterally and non-tender. No edema. No discoloration. Legs appear symmetric. Subjectively reports pain in medial aspect of thigh, no evidence of swelling, no induration or fluctuance. NEURO: Normal sensorium. No sensory or motor deficits noted. SKIN: No rash or jaundice noted. Medical Decision & Procedures Laboratory Results 01/16/17 13:26 Red Blood Count 4.08, Mean Corpuscular Volume 91.9, Mean Corpuscular Hemoglobin 33.1, Mean Corpuscular Hemoglobin Concent 36.0, Mean Platelet Volume 10.8, Neutrophils (%) (Auto) 49.9, Lymphocytes (%) (Auto) 39.0, Monocytes (%) (Auto) 7.7, Eosinophils (%) (Auto) 2.6, Basophils (%) (Auto) 0.4, Neutrophils # (Auto) 2.34, Lymphocytes # (Auto) 1.83, Monocytes # (Auto) 0.36, Eosinophils # (Auto) 0.12, Basophils # (Auto) 0.02 01/16/17 13:26 Test 01/16/17 13:26 White Blood Count 4.69 K/uL (4.8-10.8) Red Blood Count 4.08 M/uL (4.7-6.1) Hemoglobin 13.5 g/dL (14.0-18.0) Hematocrit 37.5 % (42-52) Mean Corpuscular Volume 91.9 fL (80-100) Mean Corpuscular Hemoglobin 33.1 pg (25-34) Mean Corpuscular Hemoglobin Concent 36.0 g/dl (32-36) Platelet Count 194 K/uL (130-400) Mean Platelet Volume 10.8 fL (7.4-10.4) Neutrophils (%) (Auto) 49.9 % Lymphocytes (%) (Auto) 39.0 % Monocytes (%) (Auto) 7.7 % Eosinophils (%) (Auto) 2.6 % Basophils (%) (Auto) 0.4 % Neutrophils # (Auto) 2.34 K/uL (1.4-6.5) Lymphocytes # (Auto) 1.83 K/uL (1.2-3.4) Monocytes # (Auto) 0.36 K/uL (0.11-0.59) Eosinophils # (Auto) 0.12 K/uL (0-0.5) Basophils # (Auto) 0.02 K/uL (0-0.2) RDW Standard Deviation 45.7 fL (36.4-46.3) RDW Coefficient of Variation 13.5 % (11.5-14.5) Immature Granulocyte % (Auto) 0.4 % Immature Granulocyte # (Auto) 0.02 K/uL (0.00-0.02) Prothrombin Time 44.2 SECONDS (9.0-12.0) Prothromb Time International Ratio 3.9 (0.9-1.1) Anion Gap 5.0 mmol/L (3-11) Est Creatinine Clear Calc Drug Dose 60.2 ml/min Estimated GFR () 70.2 Estimated GFR (Non- 60.6 BUN/Creatinine Ratio 15.2 (10-20) Lactic Acid Level 0.9 mmol/L (0.4-2.0) Calcium Level 9.2 mg/dl (8.5-10.1) Phosphorus Level 3.4 mg/dl (2.5-4.9) Magnesium Level 2.0 mg/dl (1.8-2.4) Total Bilirubin 1.4 mg/dl (0.2-1) Direct Bilirubin 0.4 mg/dl (0-0.2) Aspartate Amino Transf (AST/SGOT) 38 U/L (15-37) Alanine Aminotransferase (ALT/SGPT) 50 U/L (12-78) Alkaline Phosphatase 121 U/L (45-117) Total Creatine Kinase 200 U/L (39-308) Total Protein 8.4 gm/dl (6.4-8.2) Albumin 3.9 gm/dl (3.4-5.0) Lipase 98 U/L (73-393) Laboratory results reviewed by me Medications Administered Medications (Trade) Dose Ordered Sig/Nikos Route Start Time Stop Time Status Last Admin Dose Admin Acetaminophen (Tylenol Tab) 650 mg NOW STAT PO 01/16/17 13:22 01/16/17 13:24 DC 01/16/17 14:00 650 MG Lidocaine (Lidoderm Patch 5%) 1 patch NOW STAT TD 01/16/17 15:26 01/16/17 15:28 DC 01/16/17 15:26 1 PATCH ECG Indication: other (leg pain) Rate (beats per minute): 71 Rhythm: atrial fibrillation Findings: RBBB (incomplete), no acute ischemic change, other (normal axis) Comparison ECG Date: 12/25/16 Change: Lateral nonspecific ST abnormalities similar to prior. ED Course 1258: The patient was evaluated in room C8. A complete history and physical exam was performed. 1322: Tylenol Tab 650mg PO. Medical Decision I reviewed the patient's past medical history, medications, and the nursing notes as described above. Differential diagnosis includes DVT, arterial thrombus, musculoskeletal strain, fracture, myalgias, muscle tear, neuropathy. The patient is a 56-year-old gentleman with a past medical history of hepatitis C and related cirrhosis, newly diagnosed A. fib in November of this year on Coumadin test emergency department with worsening left thigh pain that started when he woke up this morning and has progressively become worse per history of present illness. On arrival the patient is in no acute distress, afebrile with stable vital signs. On exam the patient has symmetric bilateral lower extremities with full range of motion. Has strong distal pulse and brisk capillary refill. Compartment in the thigh and lower leg are soft. Considering the patient's liver disease and risk of coagulopathy while on Coumadin DVT still in the differential, more over with the patient's atrial fibrillation serial embolus also a possibility though less likely considering strong pulses. The duplex to rule out DVT and arterial Doppler ordered. Otherwise the patient's labs showed an elevated INR to 3.8 with LFTs at recent baseline, CPK within normal limits. Venous and arterial US negative. Symptoms most likely musculoskeletal strain vs. neuropathy. Findings and plan for follow- up reviewed with patient. Patient agreeable and d/c'd per discharge instructions. Medication Reconcilliation Current Medication List: was personally reviewed by me Blood Pressure Screening Patient's blood pressure: Elevated blood pressure Blood pressure disposition: Elevated BP felt to be situational Impression Primary Impression: Left thigh pain Scribe Attestation The scribe's documentation has been prepared under my direction and personally reviewed by me in its entirety. I confirm that the note above accurately reflects all work, treatment, procedures, and medical decision making performed by me. Departure Information Dispostion Home / Self-Care Prescriptions Lidocaine (Lidoderm Patch 5%) 1 Ea Tdsy 1 PATCH TD DAILY Y for Pain for 7 Days, #7 PATCH Apply patch to painful area for 12 hours and then remove for 12 hours. Prov: Jeremy Castro M.D. 01/16/17 Referrals No Doctor, Assigned (PCP) Patient Instructions ED Muscle Pain Leg Cramps, [facility] Additional Instructions Please follow up with your primary care physician in the next 1-3 days for re- evaluation and to recheck your INR. You should skip your next 2 doses of Coumadin. Otherwise, your exam, EKG, lab results, and venous and arterial ultrasound of your leg did not show signs of an emergent condition at this time. At this time it is unclear what may be causing your pain but muscle strain is possible. Lidoderm patch as needed as prescribed for pain. Apply heating pad at 20 minute intervals throughout the day for muscle relaxation and pain relief. Return to the emergency department for worsening symptoms as described in the accompanying instructions.
[2017-01-16] MEDS ORDERED: ACETAMINOPHEN 325 MG TAB PO STA (13:22)
[2017-01-16 13:41] LABS: BASO % 0.4 %; BASO ABS # 0.02 K/uL (0-0.2); COMPLETE YES; EOS % 2.6 %; HEMATOCRIT 37.5 % (42-52); IG% 0.4 %; LYMPH ABS # 1.83 K/uL (1.2-3.4); MEAN CELL VOLUME 91.9 fL (80-100); MEAN CORPUSCULAR HEMOGLOBIN 33.1 pg (25-34); MEAN PLATELET VOLUME 10.8 fL (7.4-10.4); MONO % 7.7 %; NEUT % 49.9 %; PLATELET COUNT 194 K/uL (130-400); RED BLOOD COUNT 4.08 M/uL (4.7-6.1); WHITE BLOOD COUNT 4.69 K/uL (4.8-10.8)
[2017-01-16] MEDS ORDERED: WARF5TAB90 PO ×2 (13:44)
[2017-01-16 13:58] LABS: INR 3.9 (0.9-1.1); PROTHROMBIN TIME (PATIENT) 44.2 SECONDS (9.0-12.0)
[2017-01-16 13:59] LABS: BUN/CREATININE RATIO 15.2 (10-20); CALCIUM 9.2 mg/dl (8.5-10.1); CREATININE 1.3 mg/dl (0.60-1.40); POTASSIUM 3.6 mmol/L (3.5-5.1)
[2017-01-16 14:03] LABS: PHOSPHORUS 3.4 mg/dl (2.5-4.9)
--- NOTE | 2017-01-16 15:20 | DIAGNOSTIC IMAGING REPORT ---
LEFT VENOUS DOPP LOWER EXT UNILAT CLINICAL HISTORY: 56 years-old Male presenting with pain. TECHNIQUE: Real-time grayscale and color and spectral Doppler ultrasound imaging of the veins of the left lower extremity was performed. Compression and augmentation were also utilized. COMPARISON: 11/06/2014.. FINDINGS: Left: Common femoral vein: Patent. Exaggerated phasicity in the common femoral vein could suggest elevated right heart pressures. Femoral vein: Patent. Greater saphenous vein: Patent. Popliteal vein: Patent. Calf veins: Patent. Other: None. IMPRESSION: No evidence of deep venous thrombosis. Electronically signed by: Loco Valentino M.D. 01/16/2017 3:19 PM Dictated Date/Time: 01/16/2017 3:18 PM
--- NOTE | 2017-01-16 15:23 | DIAGNOSTIC IMAGING REPORT ---
LEFT ART DOP DUPLEX LWR EXT UNI CLINICAL HISTORY: 56 years-old Male presenting with left hip pain. TECHNIQUE: Real-time grayscale and color and spectral Doppler ultrasound imaging of the bilateral lower extremity arteries was performed. Measurements calculated based on NASCET criteria. COMPARISON: None. FINDINGS: Left: Common femoral artery: Patent. Peak systolic velocity 57 cm/s. Superficial femoral artery: Patent. Peak systolic velocity 96-89 cm/s. Popliteal artery: Patent. Peak systolic velocity 45 cm/s. Posterior tibial artery: Patent. Peak systolic velocity 36 cm/s. Peroneal artery: Patent. Peak systolic velocity 51 cm/s. Anterior tibial artery: Patent. Peak systolic velocity 98 cm/s. Dorsalis pedis: Patent. Peak systolic velocity 38 cm/s. DERECK Brachial: Right: 144 mmHg, Left: 128 mmHg. Ankle (Posterior tibial): Right: 144 mmHg, Left: 154 mmHg. Ankle (Dorsalis pedis): Right: 140 mmHg, Left: 153 mmHg. Ankle/Brachial Index: Right: 0.99-1.02, Left: 1.09. Reference ranges: Normal DERECK 1.0-1.4; 0.9-0.99 borderline; less than 0.9 abnormal. IMPRESSION: 1. No hemodynamically significant stenosis seen in the left lower extremity. 2. Normal ankle brachial indices bilaterally. Electronically signed by: Loco Valentino M.D. 01/16/2017 3:22 PM Dictated Date/Time: 01/16/2017 3:19 PM
[2017-01-16] MEDS ORDERED: NF656 TD (15:26)
[2017-01-16] MEDS ORDERED: LIDODERM (LIDOCAINE) PATCH 5% TD STA (15:26)
[2017-01-16 15:49] VITALS: BP 132/91; PULSE 71; O2SAT 97
== END 2017-01-16 15:50 | disposition home or self-care (01) ==
LOC: C.EDB 12:51 → C.EDC 15:50
DX: M79.652 Pain in left thigh (principal); I48.91 Unspecified atrial fibrillation; B19.20 Unspecified viral hepatitis C without hepatic coma; I42.9 Cardiomyopathy, unspecified; I45.10 Unspecified right bundle-branch block; I10 Essential (primary) hypertension; Z79.82 Long term (current) use of aspirin; Z79.01 Long term (current) use of anticoagulants

== ENCOUNTER → 2017-02-24 | Outpatient (CLI) | payer OTHER ==
[2017-02-24] VITALS (12 sets, daily range): BP systolic 118–167; BP diastolic 63–116; PULSE 74–100; TEMP 36.5; O2SAT 96–99; Ht 182.9 cm; Wt 73.0 kg
[~2017-02-24] VITALS: Ht 182.9 cm; Wt 73.0 kg
[~2017-02-24] MED LIST changes: -CMD5 PO; -CTP1 PO; +LEVO137T3 PO; -LEVO50TA6 PO; +LIDOCAINE HCL 2% 2 ML VIAL (20MG/ML) ONE; +METO-217 PO; +PROPOFOL IV EMULSION 10 MG/ML 20 ML VIAL IV ONE; -TPRSR50 PO; -WARF1TAB PO; +WARF5TAB90 PO
--- NOTE | 2017-02-24 07:36 | History & Physical Bridge Note ---
H&P Re-Evaluation Bridge Note: I have examined the patient, reviewed the History & Physical performed by Bisi Gipson PA-C and in the interval since the performance of the History & Physical I have noted the following changes of clinical significance: No changes noted. Patient remains in atrial fibrillation today on presentation to the pathology lab technician with rate of 78 bpm. His most recent outpatient INR was at goal, earlier this month he had one reading of less than 2. Given his history of left atrial appendage thrombus will proceed with ANGE prior to cardioversion. Informed consent was obtained.
--- NOTE | 2017-02-24 08:07 | Cardiology Procedure Brief Nt ---
Preliminary Cardiology Note Procedure Date Feb 24, 2017. Pre-Procedure Diagnosis Symptomatic atrial fibrillation, h/o AMBER thrombus Post-Procedure Diagnosis No AMBER thrombus, successful conversion to SR Procedure(s) Performed ANGE guided cardioversion Printing Pressman Terry Barrios DO Hopper Operator(s) VINCENZO Lora Estimated Blood Loss none Preliminary Findings After informed consent was obtained and a time out was performed , pt was sedated with the assistance of Dr Dorcas Prieto of the anesthesia department. ANGE revealed spontaneous echo contrast in the LA and AMBER but not thrombus. Pt then underwent synchronized DCCV receiving 300 J of biphasic energy, x 1 dose with successful conversion to SR. Recommendations Will obtain stat INR and PTT given the findings of spontaneous echo contrast, if INR < 2 will plan on bridge therapy. Specimens none Anesthesia Lidocaine 40 mg IV daily , propofol 180 mg IV daily Complication(s) None Disposition recovery in post cath recovery area
[2017-02-24 08:55] LABS: INR 3.2 (0.9-1.1); PARTIAL THROMBOPLASTIN RATIO 1.8; PROTHROMBIN TIME (PATIENT) 36.4 SECONDS (9.0-12.0)
--- NOTE | 2017-02-24 09:07 | Anesthesiology Progress Note ---
Anesthesia Post Op Note Date & Time Feb 24, 2017 at 09:07 Vital Signs Pain Intensity: 0 Vital Signs Past 12 Hours Date Time Temp Pulse Resp B/P (MAP) Pulse Ox O2 Delivery O2 Flow Rate FiO2 02/24/17 09:00 63 16 140/93 (109) 98 Room Air 02/24/17 08:45 64 16 149/103 (118) 98 Room Air 02/24/17 08:30 70 16 133/97 (109) 98 Room Air 02/24/17 08:18 75 16 129/92 (104) 98 Room Air 02/24/17 07:58 80 16 118/80 98 Room Air 02/24/17 07:58 80 16 118/80 (93) 98 Room Air 02/24/17 07:55 100 16 118/80 96 Nasal Cannula 02/24/17 07:53 100 16 118/80 98 Nasal Cannula 02/24/17 07:52 100 16 118/80 98 Nasal Cannula 02/24/17 07:50 100 16 134/104 98 Nasal Cannula 02/24/17 07:48 100 16 120/92 97 Nasal Cannula 02/24/17 07:45 100 16 120/92 97 Nasal Cannula 02/24/17 07:40 84 16 167/111 98 Nasal Cannula 02/24/17 07:32 84 16 124/63 98 Room Air 02/24/17 07:21 36.5 79 14 155/116 98 Room Air Notes Mental Status: alert / awake / arousable, participated in evaluation Pt Amnestic to Procedure: Yes Nausea / Vomiting: adequately controlled Pain: adequately controlled Airway Patency, RR, SpO2: stable & adequate BP & HR: stable & adequate Hydration State: stable & adequate Anesthetic Complications: no major complications apparent
--- NOTE | 2017-02-24 09:49 | Discharge Instructions ---
Discharge Instructions Procedure Procedure Date: Feb 24, 2017. Reason for Visit: Symptomatic atrial fibrillation Discharge Discharge Date: Feb 24, 2017. Discharge Diagnosis: Spontaneous echo contrast in the left atrium and left atrial appendage, without thrombus on ANGE. Successful conversion to sinus rhythm. Last Recorded Wt (Kilograms): 73 Anesthesia Post Anesthesia Instructions: If you have had General Anesthesia or IV Sedation: * Do not drive today. * Resume driving when surgeon permits. * Do not make important decisions or sign legal documents today. * Call surgeon for: 1. Temperature elevations greater than 101 degrees F. 2. Uncontrollable pain. 3. Excessive bleeding. 4. Persistent nausea and vomiting. 5. Medication intolerance (nausea, vomiting or rash). * For nausea and vomiting use only clear liquids such as: tea, soda, bouillon until nausea subsides, then gradually increase diet as tolerated. * If you have any concerns or questions, call your surgeon's office. If physician is unavailable and it is an emergency, call 911 or go to the nearest emergency room. Instructions Activity Recommendations: limitations as noted below Recommended Home Diet: resume previous diet Allergies: Coded Allergies: No Known Allergies (Verified , 01/16/17) Provider Instructions ACTIVITY RECOMMENDATIONS: Resume activities as tolerated with no limitations unless specified. _x_ No lifting over 10__ pounds for 24 hours. _x_ Do not engage in vigorous exercise, sexual activity, or sports for 24 hours. _x_ Do not drive or operate any motorized equipment for 24 hours. _x_ You may return to work/school tomorrow. _x_ Nothing to eat or drink until gag reflex returns. _x_ No HOT or WARM liquids for _24_ hours. _x_ Avoid "scratchy" foods such as potato chips or pretzels for 24 hours following procedure. SPECIAL CARE: If you experience coughing up or vomiting of blood, contact __Dr Barrios [phone] Follow Up Follow-up with: Follow up with Jody Shaw PA-C as planned. Continue current medications. DO NOT MISS YOUR COUMADIN! Radhames Davalos Recommendations: Call your doctor if: * Temperature above 101 degrees * Pain not relieved by pain medicine ordered * There is increased drainage or redness from any incision * You have any unanswered questions or concerns. Your Doctors Instructions noted above were prepared by provider Ander Barrios. Patient Signature Section: Patient Instructions Signature Page Efrain Joshua Patient (or Guardian) Signature/Date: I have read and understand the instructions given to me by my caregivers. Caregiver/RN/Doctor Signature/Date: The above-named patient and/or guardian has received patient instructions on this date. + Original Patient Signature Page (only) stays with chart. Please make copy for patient.
--- NOTE | 2017-02-24 09:57 | Cardioversion ---
Electricial Cardioversion Rpt Date of Service: 02/24/17 Electrical Cardioversion Rprt Pre-Procedure Diagnosis Symptomatic atrial fibrillation, h/o left atrial appendage thrombus Post-Procedure Diagnosis No AMBER thrombus, successful conversion to SR Procedure(s) Performed ANGE guided cardioversion Chain Dyer Terry Barrios DO Library Page(s) VINCENZO Lora Estimated Blood Loss none Preliminary Findings After informed consent was obtained and a time out was performed , pt was sedated with the assistance of Dr Dorcas Prieto of the anesthesia department. ANGE revealed spontaneous echo contrast in the left atrium and left atrial appendage but no thrombus. Pt then underwent synchronized DCCV receiving 300 J of biphasic energy, x 1 dose with successful conversion to SR. Recommendations Patient's INR was 3.2 today. He was counseled to remain on his prior medications, including same Coumadin dose and keep his outpatient follow up. Anesthesia Lidocaine 40 mg IV daily , propofol 180 mg IV daily Complication(s) None Disposition recovery in post cath recovery area and then discharge to home. His daughter is going to pick him up.
--- NOTE | 2017-02-24 16:30 | TEE ---
*NOTICE TO RECEIVING CONSTITUTION PARTY AGENCY This information is strictly Confidential and protected under [place] law. [place] law prohibits you from making any further disclosure of this information unless further disclosure is expressly permitted by the written consent of the person to whom it pertains or is authorized by law. A general authorization for the release of medical or other information is not sufficient for this purpose. Hospital accepts no responsibility if the information is made available to any other person, INCLUDING THE PATIENT. Interpretation Summary * Name: LUCIA CÁRDENAS Study Date: 02/24/2017 07:34 AM BP: 160/101 mmHg * Patient Location: [facility] HR: 92 * : 1960 (M/d/yyyy) Gender: Male Height: 72 in * Age: 56 yrs Ethnicity: AA Weight: 160 lb * Ordering Physician: Ander Barrios DO, [facility] * Performed By: Florinda White RCS * * Reason For Study: A-FIB * BSA: 1.9 m2 * -- Conclusions -- * A focused study was performed to reassess the left atrium and left atrial appendage prior to direct current cardioversion. * Limited views were obtained that were adequate for the procedure indication. * The left atrium is moderately dilated. * Spontaneous contrast is present in the left atrium. * Spontaneous contrast in left atrial appendage. * No left atrial mass or thrombus visualized. * No thrombus is detected in the left atrial appendage. * Compared to the prior ANGE dated 12/27/16, there is no left atrial appendage thrombus on the present study. Procedure Details * NAGE Probe #1 utilized for procedure. * The study was performed in Cardiac Catheterization Lab. * Time out was conducted by the physician, nurse, and quality control lab tech with positive identification of patient and procedure. * Informed consent for Transesophageal Echocardiogram was obtained prior to the procedure. * An intravenous line was placed. A topical anesthetic agent was used for oropharangeal anesthesia. A bite block was inserted. * Sedation performed by the anesthesia department. * The patient's vital signs, including blood pressure, heart rate, pulse oximetry and cardiac rhythm were monitored throughout the procedure . * The posterior oropharynx was anesthetized using a topical anesthetic spray. A bite guard was inserted. * A multifrequency, multiplane transesopheageal echocardiographic endoscope was inserted and manipulated in the standard fashion to achieve multiplane views. * The transesophageal probe was passed without difficulty. * Limited views were obtained. * The patient tolerated the procedure well without evidence of orophangeal or esophageal trauma. * START TIME: 0740 PROBE IN: 0748 PROBE OUT: 0752 40 MG PROPOFOL administered by anesthesia. 40 MG LIDOCAINE administered by anesthesia. * A 2D transesophageal echocardiogram with color flow Doppler was performed. * Limited views were obtained. Left Ventricle * The left ventricular wall motion and ejection fraction were normal in the mid esophgeal 4 -chamber view and in the long aix view. Atria * The left atrium is moderately dilated. * Spontaneous contrast in LA. * Spontaneous contrast in left atrial appendage. * No left atrial mass or thrombus visualized. * No thrombus is detected in the left atrial appendage. Aortic Valve * The aortic valve is trileaflet. * Aortic stenosis is absent.
== END | disposition home or self-care (01) ==
LOC: C.CATH 05:58
PROVIDERS: ATTEND Specialist
DX: I48.0 Paroxysmal atrial fibrillation (principal); I10 Essential (primary) hypertension; B18.2 Chronic viral hepatitis C; E03.9 Hypothyroidism, unspecified; I42.2 Other hypertrophic cardiomyopathy; Z87.891 Personal history of nicotine dependence; Z79.01 Long term (current) use of anticoagulants; Z79.82 Long term (current) use of aspirin

== ENCOUNTER 2017-11-23 19:38 | Emergency (ER) | payer OTHER ==
[~2017-11-23] VITALS: Ht 182.9 cm; Wt 77.9 kg
[~2017-11-23 19:38] MED LIST changes: +AMLO5TAB3 PO; -ASPEC81 PO; +ASPI81TA28 PO; +LEVO100T7 PO; -LEVO137T3 PO; -LIDOCAINE HCL 2% 2 ML VIAL (20MG/ML) ONE; +LISI-461 PO; -LSN10 PO; -NRV5 PO; -PROPOFOL IV EMULSION 10 MG/ML 20 ML VIAL IV ONE
[2017-11-23 19:42] VITALS: TEMP 36.8; Ht 182.9 cm; Wt 77.9 kg
[2017-11-23] MEDS ORDERED: LIDOCAINE/EPINEPHRINE 1% 20 ML VIAL INFIL STA (19:56)
[2017-11-23] MEDS ORDERED: LIDOCAINE/EPINEPHRINE 1% 20 ML VIAL ONE (19:59)
--- NOTE | 2017-11-23 20:46 | EMERGENCY ROOM VISIT NOTE ---
ED Visit Note First contact with patient: 19:44 CHIEF COMPLAINT: Left Hand laceration HISTORY OF PRESENT ILLNESS: This right hand dominant 57-year-old male patient presents to the emergency department approximately 2 hours after cutting the left hand on a glass table. The patient states the table shattered and he did remove 1 piece of glass. He believes there may be more glass in there, but is uncertain. The patient is on Coumadin. The bleeding has not stopped. Denies weakness or numbness of the hand or fingers. The patient rates the pain as throbbing and 10/10. He has taken no medications for pain. The patient denies any other injuries. The patient's Tetanus shot is up to date. REVIEW OF SYSTEMS: A 6 system review of systems was completed with positives and pertinent negatives listed in the HPI. ALLERGIES: None MEDICATIONS: Levothyroxine, metoprolol, Coumadin, amlodipine, aspirin, lisinopril PMH: Hypothyroidism, heart disease SOCIAL HISTORY: The patient lives locally with family. He denies drug, alcohol , tobacco use. PHYSICAL EXAM: Vital Signs: Reviewed Nurse's notes, vital signs stable. GENERAL : This is a 57-year-old black male, in no acute distress, well-developed, well- nourished. SKIN: There is a 1 cm long laceration on the anterior aspect of the left hand, just proximal to the first digit. The edges gape apart with traction. There is no foreign material in the wound and it looks clean. There is a moderate amount of bleeding. No deep structures such as tendons, bones, or significant blood vessels are seen in the base of the wound. Normal strength and movement of the fingers and wrist. Capillary refill less than 2 seconds. Normal sensation to light and sharp touch. RADIOLOGY: LEFT HAND 3 VIEWS HISTORY: Left hand laceration, possible FB COMPARISON: None. FINDINGS: There is no fracture or dislocation. Small soft tissue laceration at the thumb base. Mild to moderate osteoarthritis within the DIP and PIP joints. No radiopaque foreign bodies. IMPRESSION: Soft tissue laceration at the thumb base. No radiopaque foreign bodies. Electronically signed by: Azar Clark M.D. 11/23/2017 9:25 PM Dictated Date/Time: 11/23/2017 9:24 PM EMERGENCY DEPARTMENT COURSE: I examined the patient. The laceration was anesthetized with 2ml of 1% lidocaine with epinephrine due to the patient's complaints of 10/10 pain. X-ray performed and reviewed by myself and radiologist as above. Verbal consent was obtained to perform the procedure. Using sterile technique the wound was cleansed with Betadine. The area was sterilely draped. 3 ml of 1% lidocaine with epinephrine was used to re- anesthetize the laceration on the hand. Once the patient was anesthetized, the wound was copiously irrigated under pressure with sterile saline. The wound was explored and was as described above. The laceration was repaired using 4 simple interrupted 5-0 nylon sutures with the wound edges being well approximated. The patient tolerated the procedure well. Hemostasis was achieved. The area was cleaned with sterile saline and dressed with bacitracin ointment and bandage. The patient was discharged home in good condition. I attest that I have personally reviewed the patient's current medication list. Patient was found to have normal blood pressure on screening and does not require follow-up. Differential diagnosis includes laceration, contusion, fracture, sprain/strain, tendon or ligament injury, neurovascular compromise, foreign body, assault, and others DIAGNOSIS: Hand laceration The chart was completed utilizing [employer] Speech voice recognition software. Grammatical errors, random word insertions, pronoun errors, and incomplete sentences are an occasional consequence of this system due to software limitations, ambient noise, and hardware issues. Any formal questions or concerns about the content, text, or information contained within the body of this dictation should be directly addressed to the provider for clarification. Problem List Medical Problems: (1) Hepatitis C Status: Chronic (2) Hypertension Status: Chronic (3) Hypertensive heart disease Status: Chronic (4) Left atrial thrombus Permanent Comment: per ANGE 12/27/17 Status: Chronic (5) Paroxysmal atrial fibrillation Status: Chronic Surgical Problems: (1) History of cardioversion Permanent Comment: Dr. Barrios 02/24/17 Status: Chronic (2) History of transesophageal echocardiography (ANGE) Permanent Comment: 12/27/17 thrombus left atrial appendage Status: Chronic (3) Normal nuclear stress test Permanent Comment: 01/19/17 Status: Chronic (4) Status post colonoscopy Permanent Comment: villous adenoma Status: Chronic Current/Historical Medications Scheduled Amlodipine (Norvasc), 5 MG PO BID Aspirin (Aspirin Ec), 81 MG PO QAM Levothyroxine Sodium (Levothyroxine Sodium), 1 TAB PO DAILY Lisinopril (Lisinopril), 10 MG PO BID Metoprolol Succinate (Toprol Xl), 50 MG PO BID Warfarin Sodium (Coumadin), 0 PO UD Allergies Coded Allergies: No Known Allergies (Verified , 10/05/17) Vital Signs Date Time Temp Pulse Resp B/P (MAP) Pulse Ox O2 Delivery O2 Flow Rate FiO2 11/23/17 22:28 68 18 123/86 97 11/23/17 21:16 65 18 126/93 100 Room Air 11/23/17 19:42 36.8 65 18 87/42 100 Room Air Medications Administered Medications (Trade) Dose Ordered Sig/Nikos Route Start Time Stop Time Status Last Admin Dose Admin Lidocaine/ Epinephrine (Xylocaine/Epine 1% Inj) 20 ml STK-MED ONCE .ROUTE 11/23/17 19:59 11/23/17 20:00 DC 11/23/17 20:00 20 ML Departure Information Impression Primary Impression: Hand laceration Dispostion Home / Self-Care Condition GOOD Referrals Graham Parson D.O. (PCP) Patient Instructions ED Laceration Hand, [facility] Additional Instructions You have received 4 sutures on your left hand. These sutures are NOT dissolvable and WILL need to be removed by a health care provider in 12-14 days. You can return to the Emergency Department or contact your Primary Care Provider to have the sutures removed. Proper wound care is essential for adequate wound healing and infection prevention. You can shower and clean the wound with soap and water. Do not scour over the wound, pat dry with a towel. Do not submerse the wound (i.e. bathe or dish wash) until the sutures have been removed. You can use an antibiotic ointment with a dressing over the wound for the next 3-4 days. After this time you may leave the wound dry and open to the air. If crust develops over the wound you can use a Q-tip to apply a 1:1 peroxide:water solution to clean the wound. Look for signs of infection of the wound including: increased pain, swelling, foul discharge, streaking, or increased temperature. If any of these are noticed you should return to the Emergency Department for further assessment and treatment. As with any laceration you may have received nerve damage to the surrounding tissues. This damage may or may not be permanent. You should keep the area covered with sunscreen for the first 6 months to 1 year when at risk for exposure to help minimize scarring. For pain control, you can use the following [id number] medicines (if >12 yo): Acetaminophen(Tylenol) may be used for fever or pain. Use 1000mg every six hours as needed. Avoid using more than 3000mg in a 24 hour period. Return to the emergency department if your symptoms worsen despite treatment course outlined above. Problem Qualifiers Primary Impression: Hand laceration Encounter type: initial encounter Foreign body presence: without foreign body Laterality: left Qualified Codes: S61.412A - Laceration without foreign body of left hand, initial encounter
--- NOTE | 2017-11-23 21:26 | DIAGNOSTIC IMAGING REPORT ---
LEFT HAND 3 VIEWS HISTORY: Left hand laceration, possible FB COMPARISON: None. FINDINGS: There is no fracture or dislocation. Small soft tissue laceration at the thumb base. Mild to moderate osteoarthritis within the DIP and PIP joints. No radiopaque foreign bodies. IMPRESSION: Soft tissue laceration at the thumb base. No radiopaque foreign bodies. Electronically signed by: Azar Clark M.D. 11/23/2017 9:25 PM Dictated Date/Time: 11/23/2017 9:24 PM
[2017-11-23 22:28] VITALS: BP 123/86; PULSE 68; O2SAT 97
== END 2017-11-23 22:41 | disposition home or self-care (01) ==
LOC: C.EDB 19:39 → C.EDD 22:41
DX: S61.412A Laceration without foreign body of left hand, initial encounter (principal); W25.XXXA Contact with sharp glass, initial encounter; E03.9 Hypothyroidism, unspecified; I11.9 Hypertensive heart disease without heart failure; B19.20 Unspecified viral hepatitis C without hepatic coma; Z79.01 Long term (current) use of anticoagulants; Z79.82 Long term (current) use of aspirin; Z79.899 Other long term (current) drug therapy

== ENCOUNTER 2023-08-25 19:41 | Inpatient (IN) ==
[2023-08-25 20:46] LABS: Basophils # (auto) 0.04 K/uL (0.00-0.20); Basophils % (auto) 0.8 %; Eosinophils # (auto) 0.09 K/uL (0.00-0.50); Eosinophils % (auto) 1.8 %; Hematocrit (blood only) 36.1 % (42.0-52.0); Hemoglobin 12.3 g/dl (14.0-18.0); Immature Granulocytes # (auto) 0.04 K/uL (0.01-0.20); Immature Granulocytes % (auto) 0.8 %; Lymphocytes # (auto) 1.36 K/uL (1.20-3.40); Lymphocytes % (auto) 27.9 %; Mean Corpuscular Hemoglobin 33.2 pg (25.0-34.0); Mean Corpuscular Hgb Conc 34.1 g/dL (32.0-36.0); Mean Corpuscular Volume 97.6 fL (80.0-100.0); Monocytes # (auto) 0.48 K/uL (0.11-0.59); Monocytes % (auto) 9.8 %; Neutrophils # (auto) 2.87 K/uL (1.40-6.50); Neutrophils % (auto) 58.9 %; Platelet Count 217 K/uL (130-400); RDW Coefficient of Variation 14.3 % (11.5-14.5); RDW Standard Deviation 50.9 fL (36.4-46.3); White Blood Count 4.88 K/ul (4.8-10.8)
[2023-08-25 20:52] LABS: Albumin Level 4.2 gm/dl (3.4-5.0); BUN Creatinine Ratio 13.6 (10-20); Bilirubin,Total 1.1 mg/dl (0.2-1.0); Calcium 9.2 mg/dl (8.6-10.3); Creatinine Clr Calc Pharmacy 68.5 ml/min; Est GFR (African American) 75.1 ml/min; Est GFR (Non-African American) 64.8 ml/min; Globulin 4.2 gm/dl (2.5-4.0); Potassium 3.8 mmol/L (3.5-5.1); Total Protein 8.4 gm/dl (6.0-8.3)
[2023-08-25 20:58] LABS: Troponin I High Sensitivity 25.2 pg/ml (0-20)
[2023-08-25 21:10] LABS: Partial Thromboplastin Ratio 2.2; Partial Thromboplastin Time 62 Seconds (21-31); Prothrombin Time 61.5 Seconds (9.0-12.0)
[2023-08-25 21:25] LABS: INR 6.3 (0.9-1.1)
[2023-08-25 22:08] LABS: Magnesium 1.9 mg/dl (1.7-2.4)
[2023-08-25 22:24] LABS: Thyroid Stimulating Hormone 7.297 uIu/ml (0.300-4.500)
[2023-08-25] MEDS: LORazepam 1 MG/1 ML SYR ED Inj Use IV STA (22:37)
[2023-08-25 22:59] LABS: T4 Free Thyroxine 0.96 ng/dl (0.61-1.60)
[2023-08-25 23:03] LABS: Influenza A virus by PCR Negative (Neg); Influenza B virus by PCR Negative (Neg); RSV by PCR Negative (Neg); SARS CoV2 RNA(COVID-19) Ceph NEGATIVE (Negative)
--- NOTE | 2023-08-25 23:07 | Emergency Department Note ---
History of Present Illness General Chief complaint: Shortness of Breath/Dyspnea Stated complaint: SOB, CHEST PAIN Time Seen by Provider: 08/25/23 21:28 History of Present Illness This 63-year-old gentleman that follows with Dr. Light with a history of A-fib on Coumadin presents the ER complaining of increasing shortness of breath and chest pain for the past week. Patient denies fever, chills, cough, congestion, flulike illness, leg pain or swelling. No history of heart failure. Home Medications Medication Instructions Recorded Confirmed Type amlodipine 5 mg tablet 5 mg PO [facility] 06/11/18 06/11/22 History aspirin 81 mg chewable tablet 81 mg PO QA 06/11/18 06/11/22 History levothyroxine 100 mcg tablet 100 mcg PO [facility] 06/11/18 06/11/22 History metoprolol succinate 50 mg 50 mg PO [facility] 06/11/18 06/11/22 History tablet,extended release 24 hr warfarin 5 mg tablet 5 mg PO [facility] 06/11/18 06/11/22 History potassium chloride 10 mEq 10 meq PO [facility] 10/31/18 06/11/22 History capsule,extended release Allergies Allergy/AdvReac Type Severity Reaction Status Date / Time No Known Allergies Allergy Verified 06/11/22 12:47 Past Med/Surg History Medical History Pulmonary hypertension Secondary to left heart issues per cardio records History of hypertrophic cardiomyopathy Hx Apical hypertrophic cardiomyopathy with diastolic LV dysfunction Hypothyroidism Left atrial thrombus found on ANGE on 08/20/2021 Paroxysmal atrial fibrillation Reason for warfarin Hypertension Labile Hepatitis C Treated in 2018 Surgical History History of colonoscopy History of transesophageal echocardiography (ANGE) last 11/11/21 @ [facility] History of cardioversion 2016, 2018, 2019 (a fib) Family History Brother FHx: stroke Other No family history of adverse response to anesthesia Social History Smoking Status: Former smoker Tobacco Type: Cigarettes Cigarettes Per Day: 1 pack per week; Second Hand Exposure: No; Do You Dip or Chew Tobacco: No; Hx Alcohol Use: No Hx Substance Use: Yes Last Used Substance Other:: 06/11/22 Preferred Language: Slovenian Communication Ability: Effective Building Maintenance Technician Required: No Beliefs That Will Affect Care: None Current Living Situation: Spouse Feels Safe at Home: Yes Assistive Devices: Denture - Upper Review of Systems A total of 10 systems reviewed and were otherwise negative Physical Exam Vital Signs Vital Signs - 24 hr 08/25/23 19:48 08/25/23 19:54 08/25/23 19:54 Temperature 36.5 C Temperature Source Temporal Artery Scan Pulse Rate 58 L Pulse Rate [Apical] Pulse Rhythm [Apical] Respiratory Rate 20 Respiratory Effort / Characteristics Short of Breath Short of Breath SOB on Exertion Respiratory Depth Normal Normal Respiratory Pattern Regular Regular Blood Pressure 167/103 H Blood Pressure [Right Arm] Blood Pressure Mean 124 Blood Pressure Mean [Right Arm] Blood Pressure Position Sitting Pulse Oximetry 99 99 Oxygen Delivery Method Room Air Room Air Room Air Sepsis Recent Fever Within 48 Hours No Sepsis New/Unexplained Change in Mental Status N/A Sepsis Action Taken by Nursing No Action Required 08/25/23 22:34 08/25/23 22:35 08/25/23 22:35 Temperature Temperature Source Pulse Rate 60 Pulse Rate [Apical] 52 L Pulse Rhythm [Apical] Irregular Respiratory Rate 16 Respiratory Effort / Characteristics Non-Labored Respiratory Depth Normal Respiratory Pattern Blood Pressure Blood Pressure [Right Arm] 147/103 H Blood Pressure Mean Blood Pressure Mean [Right Arm] 117 Blood Pressure Position Pulse Oximetry 100 99 Oxygen Delivery Method Room Air Room Air Sepsis Recent Fever Within 48 Hours Sepsis New/Unexplained Change in Mental Status Sepsis Action Taken by Nursing 08/25/23 22:35 Temperature Temperature Source Pulse Rate Pulse Rate [Apical] Pulse Rhythm [Apical] Respiratory Rate Respiratory Effort / Characteristics Respiratory Depth Respiratory Pattern Blood Pressure Blood Pressure [Right Arm] Blood Pressure Mean Blood Pressure Mean [Right Arm] Blood Pressure Position Pulse Oximetry 99 Oxygen Delivery Method Room Air Sepsis Recent Fever Within 48 Hours Sepsis New/Unexplained Change in Mental Status Sepsis Action Taken by Nursing VITALS: Vitals are noted on the nurse's note and reviewed by myself. Vital signs stable. GENERAL: Pleasant anxious appearing gentleman, in no acute distress, nondiaphoretic, well-developed well-nourished. SKIN: Capillary reflex less than 2 seconds. HEENT: Normocephalic. PERRLA. EOMI. Nares patent. Mucous membranes moist. Neck is supple without nuchal rigidity. HEART: Irregularly irregular LUNGS: Mild bibasilar rales. No retractions or accessory muscle use. ABDOMEN: Positive bowel sounds x 4. Normal tympanic percussion. Soft, nontender, without masses or organomegaly. Harper sign negative. No guarding or rebound tenderness. no CVA tenderness MUSCULOSKELETAL: No gross musculoskeletal defects. NEURO: Patient was alert and oriented to person place and time. No focal neurological deficits. Course Administered Medications Discontinued Medications Lorazepam (Lorazepam 1 Mg/1 Ml Syr Ed Inj Use) 1 mg IV ONE STA Stop: 08/25/23 21:43 Last Admin: 08/25/23 22:37 Dose: 1 mg Documented By: SASCHA Medical Decision Making Medical Records Attestation: I reviewed the patient's medical records. Home Medications Current Medication List: was personally reviewed by me Laboratory Data Attestation: I reviewed the patient's lab results. 08/25/23 20:20 08/25/23 20:20 Lab Results 08/25/23 08/25/23 08/25/23 Range/Units 20:20 21:51 22:00 WBC 4.88 (4.8-10.8) K/ul RBC 3.70 L (4.70-6.10) M/uL Hgb 12.3 L (14.0-18.0) g/dl Hct 36.1 L (42.0-52.0) % MCV 97.6 (80.0-100.0) fL MCH 33.2 (25.0-34.0) pg MCHC 34.1 (32.0-36.0) g/dL RDW Std Deviation 50.9 H (36.4-46.3) fL RDW Coeff of Gonzales 14.3 (11.5-14.5) % Plt Count 217 (130-400) K/uL MPV 10.0 (9.4-12.4) fL Immature Gran % (Auto) 0.8 % Neut % (Auto) 58.9 % Lymph % (Auto) 27.9 % [place] % (Auto) 9.8 % Eos % (Auto) 1.8 % Baso % (Auto) 0.8 % Neut # (Auto) 2.87 (1.40-6.50) K/uL Lymph # (Auto) 1.36 (1.20-3.40) K/uL [place] # (Auto) 0.48 (0.11-0.59) K/uL Eos # (Auto) 0.09 (0.00-0.50) K/uL Baso # (Auto) 0.04 (0.00-0.20) K/uL Immature Gran # (Auto) 0.04 (0.01-0.20) K/uL PT 61.5 H (9.0-12.0) Seconds INR 6.3 H* (0.9-1.1) APTT 62 H (21-31) Seconds PTT Ratio 2.2 Sodium 140 (136-145) mmol/L Potassium 3.8 (3.5-5.1) mmol/L Chloride 108 H (98-107) mmol/L Carbon Dioxide 27 (21-32) mmol/L Anion Gap 5 (3-11) BUN 16 (6-23) mg/dl Creatinine 1.18 (0.6-1.4) mg/dl Est Cr Clr Drug Dosing 68.5 ml/min Est GFR ( Amer) 75.1 ml/min Est GFR (Non-Af Amer) 64.8 ml/min BUN/Creatinine Ratio 13.6 (10-20) Glucose 85 (70-99(Fasting)) mg/dl Calcium 9.2 (8.6-10.3) mg/dl Magnesium 1.9 (1.7-2.4) mg/dl Total Bilirubin 1.1 H (0.2-1.0) mg/dl AST 22 (13-39) U/L ALT 15 (7-52) U/L Alkaline Phosphatase 108 H (34-104) U/L Troponin I High Sens 25.2 H 25.1 H (0-20) pg/ml B-Natriuretic Peptide 600 H (0-100) pg/ml Total Protein 8.4 H (6.0-8.3) gm/dl Albumin 4.2 (3.4-5.0) gm/dl Globulin 4.2 H (2.5-4.0) gm/dl Albumin/Globulin Ratio 1.0 (0.9-2) TSH 7.297 H (0.300-4.500) uIu/ml Free T4 0.96 (0.61-1.60) ng/dl SARS-CoV-2 (PCR) NEGATIVE (Negative) Influenza Type A (PCR) Negative (Neg) Influenza Type B (PCR) Negative (Neg) RSV (RT-PCR) Negative (Neg) Imaging Data Attestation: I personally reviewed and interpreted this imaging study as follows: MDM Narrative Prior records/ancillary studies reviewed. Triage Nursing notes reviewed. Additional history obtained from nursing. The patient's history was concerning for chest pain. Differential diagnosis: Etiologies such as cardiac ischemia, aortic dissection, pulmonary embolism, pneumonia, pneumothorax, musculoskeletal, infections, pericarditis, myocarditis, esophageal rupture, gastrointestinal, as well as others were entertained. Physical examination: As above. ER treatment provided: An order was placed for continuous cardiac monitoring. The monitor shows a rate of 60-100 with a A-flutter rhythm per my interpretation. Lasix, Ativan was ordered On reassessment the patient felt better. Diagnostic interpretation by me: The electrocardiogram was ordered for chest pain EKG: A flutter with ventricular rate of 57. Impression a flutter independently interpreted by myself The labs Independently Interpreted by myself revealed elevated troponin and repeat was similar Elevated BNP Imaging studies: Chest x-ray with mild pulmonary congestion per my independent interpretation HEART SCORE: Hx: high/mod/low suspicion: 1 ECG: ST depression/nonspecific changes/normal: 1 Age: Greater than 65/45-64/less than 45: 1 Risk factors: (Hypertension, hyperlipidemia, diabetes, coronary disease, tobacco use, cocaine use): 2 Troponin: Greater than 2 times normal limits/1-2 times normal limits/normal: 1 Total: 6 Consultation: A consultation was placed with the hospitalist. The case was discussed and diagnostics were reviewed. The patient was evaluated in the ER for further treatment. Exam and history seem consistent with a flutter with heart failure. Patient has no history of heart failure. He was given Lasix. Medicine was consulted and case discussed. Patient admitted to the medical service. Patient is agreeable. By the evaluation outlined above emergent etiologies such as aortic dissection, pulmonary embolism, pneumonia, pneumothorax, infections, pericarditis, myocarditis, gastrointestinal, as well as others were deemed relatively unlikely. The pt informed about the findings as listed above. All questions were answered and pleased with the treatment. The chart was completed utilizing [employer] voice recognition software. Grammatical errors, random word insertions, pronoun errors, and incomplete sentences are an occassional consequence of this system due to software limitations, ambient noise, and hardware issues. Any formal questions or concerns about the content, text, or information contained within the body of this dictation should be directly addressed to the physician events assistant for clarification. Impression & Plan Heart failure, Atrial flutter, Supratherapeutic INR, Chest pain Discharge Plan Visit Data Chief Complaint: Shortness of Breath/Dyspnea Stated Complaint: SOB, CHEST PAIN ED Provider: Sharif Orellana ED Midlevel Provider: Ree Santos Discharge Problem: Heart failure, Atrial flutter, Supratherapeutic INR, Chest pain Patient Disposition: Admitted As Inpatient Condition: Good Forms Stand Alone Forms: My [employer] Prescriptions Prescriptions: No Action metoprolol succinate 50 mg tablet extended release 24 hr 50 mg PO QAM amlodipine 5 mg tablet 5 mg PO QAM levothyroxine 100 mcg tablet 100 mcg PO QAM warfarin 5 mg tablet 5 mg PO QAM Rx Instructions: UD BY [facility] aspirin 81 mg tablet,chewable 81 mg PO QAM potassium chloride 10 mEq Capsule, Extended Release 10 meq PO QAM Patient Comments: states on 11/05/21 he is currently not taking med Referrals Referrals: Chan Light MD [Primary Care Provider] - Discharge Problem: Heart failure Qualifiers: Heart failure type: unspecified Heart failure chronicity: acute Qualified Code(s): I50.9 - Heart failure, unspecified
[2023-08-25] MEDS: FUROSEMIDE 40 MG/4 ML VIAL IV ONE (23:33)
--- NOTE | 2023-08-26 00:27 | History & Physical Report ---
Date of Service August 26, 2023 Assessment & Plan (1) Chest pain: Plan: 63-year-old male with past med significant for hypothyroidism, hypertrophic cardiomyopathy, moderate mitral regurgitation, persistent atrial fibrillation, left atrial thrombus, chronic hepatitis C presents with chest pain and shortness of breath. Patient states since today afternoon 2 PM he was feeling having some chest discomfort and shortness of breath on and off. Was feeling very anxious. Feeling like passing out. [place] like he was in A-fib which prompted him to come to the ER. Patient states he was not shocked in the past because of blood clot seemed to had atrial thrombus .Currently symptoms improved. Resting comfortably. Denies any headache. No blurred vision. No runny nose or sore throat. No cough. No difficulty swallowing. No nausea. No abdominal pain. Normal bowel and bladder movements. Hemodynamics are okay. Chest pain EKG no acute findings Initial troponin 25 repeat is 25 Currently symptoms improved We will follow serial enzymes and echo Telemetry N.p.o. Cardiology consult in a.m. for further recommendations Shortness of breath Possible acute CHF Valvular heart disease Hypertrophic cardiomyopathy BNP elevated 600s Received dose of IV Lasix 40 mg in ER Will follow echo Telemetry Cardiology consult in a.m. for further recommendations A-fib Rate controlled with metoprolol succinate On Coumadin which will be held for supratherapeutic INR Follow PT/INR History of left atrial thrombus On Coumadin. INR supratherapeutic Follow echo Hypothyroidism Synthyroid Chronic hepatitis C Needs follow-up DVT prophylaxis INR supratherapeutic Disposition Telemetry Full code History of Present Illness Chief Complaint: Chest pain and shortness of breath Primary Care Provider: Chan Light MD 63-year-old male with past med history significant for hypothyroidism, hypertrophic cardiomyopathy, moderate mitral regurgitation, persistent atrial fibrillation, left atrial thrombus, chronic hepatitis C presents with chest pain and shortness of breath. Patient states since today afternoon 2 PM he was feeling having some chest discomfort and shortness of breath on and off. Was feeling very anxious. Feeling like passing out. [place] like he was in A-fib which prompted him to come to the ER. Patient states he was not shocked in the past because of blood clot seemed to had atrial thrombus . Currently symptoms improved. Resting comfortably. Denies any headache. No blurred vision. No runny nose or sore throat. No cough. No difficulty swallowing. No nausea. No abdominal pain. Normal bowel and bladder movements. Hemodynamics are okay. Past medical history. As mentioned above Past surgical history. Colonoscopy through stoma with biopsy. Social history. . Smokes 0.3 packs a day for 20 years. Seems current no alcohol use. Seems former heavy drinker. Smokes marijuana as per [facility] Family history. Mother had cancer. Allergies Allergy/AdvReac Type Severity Reaction Status Date / Time No Known Allergies Allergy Verified 08/26/23 00:28 Home Medications Medication Instructions Recorded Confirmed Type amlodipine 5 mg tablet 5 mg PO QAM 06/11/18 08/26/23 History aspirin 81 mg chewable tablet 81 mg PO QAM 06/11/18 08/26/23 History metoprolol succinate 50 mg 50 mg PO QAM 06/11/18 08/26/23 History tablet,extended release 24 hr warfarin 5 mg tablet 5 mg PO QAM 06/11/18 08/26/23 History potassium chloride 10 mEq 10 meq PO QAM 10/31/18 08/26/23 History capsule,extended release levothyroxine 88 mcg tablet 88 mcg PO DAILYBB 08/26/23 08/26/23 History lisinopril 20 mg tablet 20 mg PO QAM 08/26/23 08/26/23 History Past Med/Surg History Medical History Pulmonary hypertension Secondary to left heart issues per cardio records History of hypertrophic cardiomyopathy Hx Apical hypertrophic cardiomyopathy with diastolic LV dysfunction Hypothyroidism Left atrial thrombus found on ANGE on 08/20/2021 Paroxysmal atrial fibrillation Reason for warfarin Hypertension Labile Hepatitis C Treated in 2018 Surgical History History of colonoscopy History of transesophageal echocardiography (ANGE) last 11/11/21 @ [facility] History of cardioversion 2016, 2018, 2019 (a fib) Family History Brother FHx: stroke Other No family history of adverse response to anesthesia Social History Smoking Status: Current every day smoker Tobacco Type: Cigarettes Cigarettes Per Day: 1 pack per week; Second Hand Exposure: No; Do You Dip or Chew Tobacco: No; Hx Alcohol Use: No Hx Substance Use: Yes Last Used Substance Other:: 06/11/22 Preferred Language: Vietnamese Communication Ability: Effective Sash Maker Required: Yes Beliefs That Will Affect Care: None Current Living Situation: Spouse Other Information That Helps Us Care for You: No Feels Safe at Home: Yes Safety Concerns: Feels Safe At This Time Assistive Devices: None Review of Systems Review of Systems: All systems reviewed & are unremarkable except as noted in HPI & below Physical Exam Physical Exam: General- Not in distress Head- atraumatic Eyes- PERRL. ENT- oropharynx clear Neck- supple, no JVD. Lungs- clear to auscultation no wheezing or crackles. Heart- regular rhythm; no murmur, no gallop. Abdomen- normal bowel sounds, soft, nontender, no distension. Extremities- no pretibial edema, no erythema seen Neuro- alert, oriented PERRL, no facial palsy; no dysarthria; moves extremities. Results & Data Results & Data Vital Signs (Past 12 Hours) Vital Signs Temp Pulse Pulse Resp BP BP Pulse Ox 08/25/23 22:35 99 08/25/23 22:35 99 08/25/23 22:35 52 L 16 147/103 H 100 08/25/23 22:34 60 08/25/23 19:54 99 08/25/23 19:54 08/25/23 19:48 36.5 C 58 L 20 167/103 H 99 O2 Del Method 08/25/23 22:35 Room Air 08/25/23 22:35 Room Air 08/25/23 22:35 Room Air 08/25/23 22:34 08/25/23 19:54 Room Air 08/25/23 19:54 Room Air 08/25/23 19:48 Room Air Diagnostic Findings Laboratory Results WBC 4.88 K/ul (4.8-10.8) 08/25/23 20:20 RBC 3.70 M/uL (4.70-6.10) L 08/25/23 20:20 Hgb 12.3 g/dl (14.0-18.0) L 08/25/23 20:20 Hct 36.1 % (42.0-52.0) L 08/25/23 20:20 MCV 97.6 fL (80.0-100.0) 08/25/23 20:20 MCH 33.2 pg (25.0-34.0) 08/25/23 20:20 MCHC 34.1 g/dL (32.0-36.0) 08/25/23 20:20 RDW Std Deviation 50.9 fL (36.4-46.3) H 08/25/23 20:20 RDW Coeff of [place] 14.3 % (11.5-14.5) 08/25/23 20:20 Plt Count 217 K/uL (130-400) 08/25/23 20:20 MPV 10.0 fL (9.4-12.4) 08/25/23 20:20 Immature Gran % (Auto) 0.8 % 08/25/23 20:20 Neut % (Auto) 58.9 % 08/25/23 20:20 Lymph % (Auto) 27.9 % 08/25/23 20:20 [place] % (Auto) 9.8 % 08/25/23 20:20 Eos % (Auto) 1.8 % 08/25/23 20:20 Baso % (Auto) 0.8 % 08/25/23 20:20 Neut # (Auto) 2.87 K/uL (1.40-6.50) 08/25/23 20:20 Lymph # (Auto) 1.36 K/uL (1.20-3.40) 08/25/23 20:20 [place] # (Auto) 0.48 K/uL (0.11-0.59) 08/25/23 20:20 Eos # (Auto) 0.09 K/uL (0.00-0.50) 08/25/23 20:20 Baso # (Auto) 0.04 K/uL (0.00-0.20) 08/25/23 20:20 Immature Gran # (Auto) 0.04 K/uL (0.01-0.20) 08/25/23 20:20 PT 61.5 Seconds (9.0-12.0) H 08/25/23 20:20 INR 6.3 (0.9-1.1) H* 08/25/23 20:20 APTT 62 Seconds (21-31) H 08/25/23 20:20 PTT Ratio 2.2 08/25/23 20:20 Sodium 140 mmol/L (136-145) 08/25/23 20:20 Potassium 3.8 mmol/L (3.5-5.1) 08/25/23 20:20 Chloride 108 mmol/L (98-107) H 08/25/23 20:20 Carbon Dioxide 27 mmol/L (21-32) 08/25/23 20:20 Anion Gap 5 (3-11) 08/25/23 20:20 BUN 16 mg/dl (6-23) 08/25/23 20:20 Creatinine 1.18 mg/dl (0.6-1.4) 08/25/23 20:20 Est Cr Clr Drug Dosing 68.5 ml/min 08/25/23 20:20 Est GFR ( Amer) 75.1 ml/min 08/25/23 20:20 Est GFR (Non-Af Amer) 64.8 ml/min 08/25/23 20:20 BUN/Creatinine Ratio 13.6 (10-20) 08/25/23 20:20 Glucose 85 mg/dl (70-99(Fasting)) 08/25/23 20:20 Calcium 9.2 mg/dl (8.6-10.3) 08/25/23 20:20 Magnesium 1.9 mg/dl (1.7-2.4) 08/25/23 20:20 Total Bilirubin 1.1 mg/dl (0.2-1.0) H 08/25/23 20:20 AST 22 U/L (13-39) 08/25/23 20:20 ALT 15 U/L (7-52) 08/25/23 20:20 Alkaline Phosphatase 108 U/L (34-104) H 08/25/23 20:20 Troponin I High Sens 25.1 pg/ml (0-20) H 08/25/23 22:00 B-Natriuretic Peptide 600 pg/ml (0-100) H 08/25/23 20:20 Total Protein 8.4 gm/dl (6.0-8.3) H 08/25/23 20:20 Albumin 4.2 gm/dl (3.4-5.0) 08/25/23 20:20 Globulin 4.2 gm/dl (2.5-4.0) H 08/25/23 20:20 Albumin/Globulin Ratio 1.0 (0.9-2) 08/25/23 20:20 TSH 7.297 uIu/ml (0.300-4.500) H 08/25/23 20:20 Free T4 0.96 ng/dl (0.61-1.60) 08/25/23 20:20 SARS-CoV-2 (PCR) NEGATIVE (Negative) 08/25/23 21:51 Influenza Type A (PCR) Negative (Neg) 08/25/23 21:51 Influenza Type B (PCR) Negative (Neg) 08/25/23 21:51 RSV (RT-PCR) Negative (Neg) 08/25/23 21:51 ECG Additional Comments: ECG. Atrial flutter with variable AV block at rate of 57. Minimal voltage criteria for LVH. ST and T wave abnormality in anterolateral leads. Code Status & VTE Plan VTE Prophylaxis Plan VTE Prophylaxis will be ordered: Yes
[2023-08-26] MEDS ORDERED: NITROGLYCERIN SL 0.4 MG/TAB TAB SL PRN (02:41)
[2023-08-26] MEDS ORDERED: POLYETHYLENE (MIRALAX) 17 GM PACK PO PRN (02:41)
[2023-08-26] MEDS ORDERED: ACETAMINOPHEN 325 MG TAB PO PRN (02:41)
[2023-08-26 06:01] LABS: BUN Creatinine Ratio 12.5 (10-20); Calcium 9.4 mg/dl (8.6-10.3); Creatinine Clr Calc Pharmacy 72.2 ml/min; Magnesium 1.9 mg/dl (1.7-2.4); Potassium 3.5 mmol/L (3.5-5.1)
[2023-08-26 06:30] LABS: Basophils # (auto) 0.03 K/uL (0.00-0.20); Basophils % (auto) 0.7 %; Eosinophils # (auto) 0.13 K/uL (0.00-0.50); Eosinophils % (auto) 2.9 %; Hematocrit (blood only) 35.1 % (42.0-52.0); Hemoglobin 12.2 g/dl (14.0-18.0); Immature Granulocytes # (auto) 0.03 K/uL (0.01-0.20); Immature Granulocytes % (auto) 0.7 %; Lymphocytes # (auto) 1.38 K/uL (1.20-3.40); Lymphocytes % (auto) 30.3 %; Mean Corpuscular Hemoglobin 33.2 pg (25.0-34.0); Mean Corpuscular Hgb Conc 34.8 g/dL (32.0-36.0); Mean Corpuscular Volume 95.4 fL (80.0-100.0); Mean Platelet Volume 9.6 fL (9.4-12.4); Monocytes # (auto) 0.55 K/uL (0.11-0.59); Monocytes % (auto) 12.1 %; Neutrophils # (auto) 2.43 K/uL (1.40-6.50); Neutrophils % (auto) 53.3 %; Platelet Count 210 K/uL (130-400); RDW Standard Deviation 49.3 fL (36.4-46.3); Red Blood Count 3.68 M/uL (4.70-6.10); White Blood Count 4.55 K/ul (4.8-10.8)
--- NOTE | 2023-08-26 07:07 | XRay Report ---
XR chest 1V not portable HISTORY: Shortness of breath. Chest pain, nonspecific COMPARISON: Chest 06/11/2018. FINDINGS: No pneumothorax. No pleural effusions. The heart remains mildly enlarged. Is mild central p ulmonary vascular congestion without overt edema. This is similar to the prior study. No new focal sam ng consolidations. No acute fractures. IMPRESSION: Cardiomegaly and mild congestive change. ACT 112: Negative or not required by law. Electronically signed by: Azar Clark M.D. 08/26/2023 7:06 AM
--- NOTE | 2023-08-26 08:38 | Cardiology Consultation ---
Date of Consultation August 26, 2023 Assessment & Plan (1) Apical variant hypertrophic cardiomyopathy: (2) Atrial flutter: (3) Supratherapeutic INR: (4) Hypertension: Plan Assessment: 63 year-old male with known recent medication non-compliance lost to cardiology care presents with dyspnea on exertion and near syncope. labs demonstrated supratherapeutic INR and we have been asked to see him for concerns of heart failure Plan: 1. Exertion dyspnea 2. Apical variant hypertropic cardiomyopathy -patient's dyspnea has resolved, although is multifactorial given his history of hypertensive heart diseae and hypertropic cardiomyopathy. -patient does not appear volume overloaded by exam. -Troponin elevation minimal with flat trend, likely due to strain as noted on echocardiogram sited below. LVEF normal and no regional wall motion abnormalities noted. -Recommend outpatient cardiac MRI and labs. this will be arranged outpatient. -Would hold off on significant diuresis at this time. 3. Atrial flutter 4. Supratherapeutic INR -Known, persistent and unable to have DCCV in past due to known left atrial appendage thrombus. Currently on warfarin, but had been off for several months. -INR 6.3. Patient is to have a Vitamin K rich lunch with Repeat INR at 1300. -he is to have Urgent follow up with [facility] clinic once discharged for appropriate management of his coag labs. I have placed a message to the clinic, awaiting response. 5. HTN: Patient is to be receiving Amlodipine 5mg PO QD, Lisinopril 20mg PO QD and Metoprolol succinate, will adjust dosing to 25mg PO BID due to bradycardia. further recommendation pending afternoon labs and BP response to medications. Case has been discussed with Dr. Barrios. Further recommendations regarding plan of care as per his assessment. I spent a total of 40 minutes on the date of service in preparation, delivery, documentation of the care provided to the patient excluding any time spent in the performance of separately billed services. MAURA Fernandez [facility] Supervising Physician Co-Signing Physician Notes Attending attestation: Case reviewed with the advanced practitioner. I have personally performed a history and physical examination on the patient. I have reviewed the advanced practitioner's documentation on the date of service referenced in note, and I agree with, and take responsibility for the plan of care. Echocardiogram consistent with apical variant hypertrophic cardiomyopathy. Patient admits to nonadherence with medications. Recently restarted them, INR supratherapeutic and he is here to reestablish with anticoagulation clinic. Are 6.3 on presentation, down to 4.6, goal 2-3. Continue outpatient treatment with metoprolol succinate 25 mg twice daily, amlodipine negative inotropic effect and antihypertensive effect, lisinopril. Patient received furosemide 40 mg x 1. Will monitor without further diuretics at present. With optimization of his blood pressure, hopefully his filling pressures will improve and his sensation of feeling short of breath with stairs and other short walks would improve. Cardiac MRI would be useful with regards to confirm diagnosis, and for further risk stratification with regards to send cardiac . Telemetry reveals sinus rhythm in the 60s. EKG reveals sinus rhythm with left ventricular hypertrophy pattern consistent with his diagnosis. Patient eager for discharge, but I think we need to have follow up arranged with regards to his Coumadin and anticoagulation clinic follow up given his history of left atrial appendage thrombus. I spent a total of 20 minutes coordinating, documenting, and providing care for this patient excluding time spent in the performance of separately billed services or time spent by another provider. Ander Barrios, DO History of Present Illness Reason for Consultation: Chest pain, ? CHF Requesting Physician: Gabe villanueva Attending Physician: Jersey Martinez MD History of Present Illness HPI: Patient is a 63 year-old male that presented to the ED with complaints of shortness of breath with associated dizziness and lightheadedness that started yesterday. Patient stated that he had been feeling his usual state of health, but yesterday reports that he had gone out to run some errands and upon attempting to walk into a local eatery, become suddenly short of breath and felt as though he could pass out. He stopped and rested for a minuted, feeling resolution of his symptoms. Denies any chest pain, pressure or palpitations. Denies any new leg swelling and no edema. Denies any true syncope. patient had returned home and reports having another episode, similar in nature and therefore presented to the ED for further evaluation. Cardiac history: 1. Apical hypertrophic cardiomyopathy with diastolic left ventricular dysfunction 2. Moderate to severe mitral insufficiency 3. Labile hypertension 4. persistent atrial fibrillation status post synchronized electrical cardioversion September 2017, October 2019, 5. Pulmonary hypertension secondary to left heart issues 6. LA appendage thrombus x3 on ANGE, most recently in Jun 2022. No Cardioversion Last seen in the office 08/18/2023 by the undersigned, he had been lost to cardiology follow EKG on admission demonstrates A-fib with variable AV block Rate 57bpm. ST and T wave abnormality, consider anterior lateral ischemia Trop 25.2/25.1/24.0 Patient is resting comfortably in bed, denies any chest pain, pressure, palpitations. Denies any recurrence of pre-syncope although has not been out of bed ambulating. Denies any swelling or abdominal bloat. Review of telemetry demonstrates A-fib rate controlled. No events overnight. Allergies Allergy/AdvReac Type Severity Reaction Status Date / Time No Known Allergies Allergy Verified 08/26/23 00:28 Home Medications Medication Instructions Recorded Confirmed Type amlodipine 5 mg tablet 5 mg PO QAM 06/11/18 08/26/23 History aspirin 81 mg chewable tablet 81 mg PO QAM 06/11/18 08/26/23 History metoprolol succinate 50 mg 50 mg PO QAM 06/11/18 08/26/23 History tablet,extended release 24 hr warfarin 5 mg tablet 5 mg PO QAM 06/11/18 08/26/23 History potassium chloride 10 mEq 10 meq PO QAM 10/31/18 08/26/23 History capsule,extended release levothyroxine 88 mcg tablet 88 mcg PO DAILYBB 08/26/23 08/26/23 History lisinopril 20 mg tablet 20 mg PO QAM 08/26/23 08/26/23 History Patient History Medical History Pulmonary hypertension Secondary to left heart issues per cardio records History of hypertrophic cardiomyopathy Hx Apical hypertrophic cardiomyopathy with diastolic LV dysfunction Hypothyroidism Left atrial thrombus found on ANGE on 08/20/2021 Paroxysmal atrial fibrillation Reason for warfarin Hypertension Labile Hepatitis C Treated in 2018 Surgical History History of colonoscopy History of transesophageal echocardiography (ANGE) last 11/11/21 @ [facility] History of cardioversion 2016, 2018, 2019 (a fib) Family History Brother FHx: stroke Other No family history of adverse response to anesthesia Social History Smoking Status: Current every day smoker Tobacco Type: Cigarettes Cigarettes Per Day: 1 pack per week; Second Hand Exposure: No; Do You Dip or Chew Tobacco: No; Hx Alcohol Use: No Hx Substance Use: Yes Last Used Substance Other:: 06/11/22 Preferred Language: Amharic Communication Ability: Effective Tugboat Operator Required: Yes Beliefs That Will Affect Care: None Current Living Situation: Spouse Other Information That Helps Us Care for You: No Feels Safe at Home: Yes Safety Concerns: Feels Safe At This Time Assistive Devices: None Review of Systems Review of Systems: All systems reviewed & are unremarkable except as noted in HPI & below Physical Exam Constitutional: well developed and well nourished; no acute distress Neck: normal visual inspection and trachea midline Respiratory: normal respiratory effort, lungs clear to auscultation Cardiovascular: Rate/Rhythm: regular rate and regular rhythm Heart Sounds: normal S1, normal S2 and + murmur (+1/6 systolic murmur) Vessels: dorsalis pedis pulses present; no JVD Extremities: no edema Skin: no rashes, warm and dry Psychiatric: A+Ox3, euthymic affect Results & Data Vital Signs (Past 12 Hours) Vital Signs Pulse Pulse Resp BP BP Pulse Ox Pulse Ox 08/26/23 07:35 55 L 08/26/23 06:00 52 L 18 152/102 H 98 08/26/23 05:00 65 13 95 08/26/23 04:00 55 L 12 165/94 H 99 08/26/23 04:00 96 08/26/23 03:00 60 18 97 08/26/23 02:00 60 16 172/115 H 97 08/26/23 00:00 56 L 16 166/113 H 99 08/25/23 22:35 99 08/25/23 22:35 99 08/25/23 22:35 52 L 16 147/103 H 100 08/25/23 22:34 60 O2 Del Method O2 Del Method 08/26/23 07:35 08/26/23 06:00 Room Air 08/26/23 05:00 Room Air 08/26/23 04:00 Room Air 08/26/23 04:00 Room Air 04/26/24 03:00 Room Air 08/26/23 02:00 08/26/23 00:00 Room Air 08/25/23 22:35 Room Air 08/25/23 22:35 Room Air 08/25/23 22:35 Room Air 08/25/23 22:34 Laboratory Results Cardiac Enzymes 08/25/23 08/25/23 08/26/23 Range/Units 20:20 22:00 05:15 AST 22 (13-39) U/L Troponin I High Sens 25.2 H 25.1 H 24.0 H (0-20) pg/ml B-Natriuretic Peptide 600 H (0-100) pg/ml Coagulation 08/25/23 Range/Units 20:20 PT 61.5 H (9.0-12.0) Seconds APTT 62 H (21-31) Seconds B-Natriuretic Peptide 600 H (0-100) pg/ml CBC 08/25/23 08/26/23 Range/Units 20:20 05:15 WBC 4.88 4.55 L (4.8-10.8) K/ul RBC 3.70 L 3.68 L (4.70-6.10) M/uL Hgb 12.3 L 12.2 L (14.0-18.0) g/dl Hct 36.1 L 35.1 L (42.0-52.0) % Plt Count 217 210 (130-400) K/uL Neut # (Auto) 2.87 2.43 (1.40-6.50) K/uL Lymph # (Auto) 1.36 1.38 (1.20-3.40) K/uL [place] # (Auto) 0.48 0.55 (0.11-0.59) K/uL Eos # (Auto) 0.09 0.13 (0.00-0.50) K/uL Baso # (Auto) 0.04 0.03 (0.00-0.20) K/uL Comprehensive Metabolic Panel 08/25/23 08/26/23 Range/Units 20:20 05:15 Sodium 140 140 (136-145) mmol/L Potassium 3.8 3.5 (3.5-5.1) mmol/L Chloride 108 H 107 (98-107) mmol/L Carbon Dioxide 27 29 (21-32) mmol/L BUN 16 14 (6-23) mg/dl Creatinine 1.18 1.12 (0.6-1.4) mg/dl Glucose 85 94 (70-99(Fasting)) mg/dl Calcium 9.2 9.4 (8.6-10.3) mg/dl AST 22 (13-39) U/L ALT 15 (7-52) U/L Alkaline Phosphatase 108 H (34-104) U/L Total Protein 8.4 H (6.0-8.3) gm/dl Albumin 4.2 (3.4-5.0) gm/dl Intake and Output 08/25/23 08/26/23 08/26/23 22:59 06:59 14:59 Other: Weight 76.6 kg 76.6 kg Weight Measurement Method Standing Scale Diagnostic Findings Echocardiogram 08/26/23 Severe concentric LVH with focal apical hypertrophy Papillar muscles are hypertrophied and displaced toward the apex No regional wall motion abnormalities LVEF 60-65% Left atrium severely dilated Mild AI mild MR PASP 47mmHg Mild aortic root dilation. LV diastolic function with Doppler evidence of high left sided filling pressures. Global longitudinal strain is abnormal (-7, 10%) with abnormal strain pattern at the apex.
--- NOTE | 2023-08-26 12:43 | Electrocardiogram Report ---
Test Reason : Blood Pressure : / mmHG Vent. Rate : 057 BPM Atrial Rate : 394 BPM P-R Int : 000 ms QRS Dur : 092 ms QT Int : 448 ms P-R-T Axes : 000 014 131 degrees QTc Int : 436 ms Atrial flutter with variable A-V block Minimal voltage criteria for LVH, may be normal variant Abnormal ECG When compared with ECG of 09-OCT-2019 07:34, Atrial flutter has replaced Sinus rhythm T wave inversion less evident in Anterior leads Confirmed by Zachary Yeager ([id number]) on 08/26/2023 12:43:26 PM Referred By: REFERRED SELF Confirmed By:Zachary Yeager
[2023-08-26 14:04] LABS: INR 4.6 (0.9-1.1); Prothrombin Time 45.4 Seconds (9.0-12.0)
[2023-08-26] MEDS: lisinopril 20 MG TAB PO SCH ×2 (14:41→20:48)
[2023-08-26] MEDS: amLODIPine BESYLATE 5 MG TAB PO SCH (14:41)
[2023-08-26] MEDS: METOPROLOL SUCC 25MG EXT REL TAB PO SCH (14:41)
--- NOTE | 2023-08-26 17:47 | Communication Note ---
Date of Service: August 26, 2023 Patient seen and examined at bedside. He is sitting up on the chair, comfortable, not in any distress. He reports that the chest pain has improved compared to admission. Evaluated by cardiology; no further work up inpatient. On physical examination: Constitutional: WD/WN, vitals as above, NAD, sitting up in bed, pleasant, conv ersing easily Respiratory: normal respiratory effort, lungs clear to auscultation, no wheeze, rales, rhonchi. Normal insp/exp effort, no accessory muscle use Cardiovascular: RRR, no murmur, no edema Vessels: no JVD or carotid bruit Chest: normal inspection of chest Abdomen: normal bowel sounds, soft, nontender, no hepatosplenomegaly Musculoskeletal: no cyanosis or clubbing, extremities motor strength 5/5 Skin: no rashes, warm and dry normal turgor Neurologic: PERRL, EOMI, accommodation nl, no face palsy, no dysarthria CN's II- XI intact bilaterally and moves all extremities Psychiatric: A+Ox3, euthymic affect
[2023-08-26] MEDS: POTASSIUM CHLORIDE 10 MEQ TABCR PO STA (20:46)
[2023-08-26] MEDS: hydrOXYzine HCl 25 MG TAB PO SCH (20:47)
--- OUTSIDE RECORDS SUMMARY | 2023-08-27 04:03 | External Medical Summary | Summary of Care ---
Author Name Unknown Organization [facility] Address [address] [place] [address] Phone [phone] Care Team Providers Care Supervisor [employer] Name Role Phone Latha July A DENVER Primary Care Provider [phone] Reason for Visit * Reason Comments Acute Pt is here today for having trouble with A-fib. Pt had a bad day on Tuesday.Pt's made him come today. Pt doesn't have insurance and wanted to what. Pt is only taking two of his medications Metoprolol and amlopine due to not having insurance to get his other medication Encounter Details Date Type Department Care Team (Latest Contact Info) Description 07/22/2023 12:20 PM EDT Office Visit [facility] [address] [place] [address] Sandra Siemntal MD [address] [place] [address] Persistent atrial fibrillation (HCC)*; Acquired hypothyroidism; Left atrial thrombus; Hypertrophic cardiomyopathy (HCC); Anticoagulated on Coumadin Allergies No known active allergiesdocumented as of this encounter (statuses as of 07/22/2023) Medications Medication Sig Dispensed Refills Start Date End Date Status Aspirin Low Dose 81 MG Oral Tablet Chewable (aspirin) TAKE 1 TABLET BY MOUTH EVERY DAY 90 Tab 3 0 Active Additional Information Patient not taking.Reported on 07/22/2023 Metoprolol Succinate ER 50 MG Oral Tablet Extended Release 24 Hour (toPROL XL) Take 1 Tablet by mouth in the morning. 90 Tablet 3 3 Active hydrOXYzine HCl 25 MG Oral TabletIndications: Panic attack Take 1 Tablet by mouth every 6 hours as needed for Anxiety. 40 Tablet 2 3 Active Additional Information Patient not taking.Reported on 07/22/2023 Klor-Con M10 10 MEQ Oral Tablet Extended Release (potassium chloride ER)Indications:Hyp okalemia TAKE 1 TABLET BY MOUTH EVERY DAY IN THE MORNING 90 Tablet 3 3 Active Additional Information Patient not taking.Reported on 07/22/2023 Levothyroxine Sodium 88 MCG Oral Tablet (Levoxyl)Indicatio ns:Acquired hypothyroidism Take 1 Tablet by mouth in the morning. (at least 30 min prior to breakfast or other meds). 90 Tablet 3 4 Active Warfarin Sodium 5 MG Oral Tablet (Coumadin) Take one tablet by mouth every evening as directed by coumadin clinic 120 Tablet 3 4 Active Lisinopril 20 MG Oral Tablet (Prinivil) Take 1 Tablet by mouth in the morning. 90 Tablet 3 4 Active Lisinopril 5 MG Oral Tablet (Prinivil)Indicati ons:HTN, goal to be determined Take 1 Tablet by mouth in the morning. 90 Tablet 3 3 024 Discontinued amLODIPine Besylate 5 MG Oral Tablet (Norvasc)Indicatio ns:taking once daily Take 1 Tablet by mouth in the morning. 90 Tablet 3 3 024 Discontinued Levothyroxine Sodium 88 MCG Oral Tablet (Levoxyl)Indicatio ns:Acquired hypothyroidism Take 1 Tablet by mouth in the morning. (at least 30 min prior to breakfast or other meds). 90 Tablet 3 3 024 Discontinued(Re fill) Warfarin Sodium 5 MG Oral Tablet (Coumadin)Indicati ons:Paroxysmal atrial fibrillation (HCC) TAKE ONE TABLET BY MOUTH EVERY EVENING DIRECTED BY COUMADIN CLINIC 120 Tablet 3 3 024 Discontinued(Re fill) documented as of this encounter (statuses as of 07/22/2023) Active Problems Problem Noted Date Diagnosed Date Persistent atrial fibrillation 08/04/2022 Left atrial thrombus 08/04/2022 Moderate mitral regurgitation 12/01/2017 Hypertrophic cardiomyopathy 06/04/2010 Malaise and fatigue 09/20/2006 ADVANCE DIRECTIVE INFORMATION 03/24/2005 Overview: informed he can bring in Hypothyroidism 12/18/2004 CHRONIC HEPATITIS C W/O MENTION OF HEPATIC COMA 10/31/2003 documented as of this encounter (statuses as of 07/22/2023) Resolved Problems Problem Noted Date Diagnosed Date Resolved Date SVT (supraventricular tachycardia) 12/01/2017 10/10/2018 Paroxysmal atrial fibrillation 12/23/2016 07/22/2023 Hemorrhage of rectum and anus 06/02/2010 10/10/2018 Myalgia and myositis 09/20/2006 018 Headache 09/20/2006 10/10/2018 Overview: ICD-10 update of inactive term INF ARTHRITIS NEC-HAND 08/24/200510/18 Major depressive disorder 11/19/2003 Overview: ICD-10 update of inactive term documented as of this encounter (statuses as of 07/22/2023) Immunizations Name Administration Dates Next Due COVID-19 mRNA, LNP-s, No Pre serve, 2-Dose Series (Pfizer) 08/15/2020,07/25/2020 Pneumococcal Polysaccharide PPV23 (Pneumovax) 12/02/2008 Seasonal Influenza, PF, 6 M & above, IM , (FluLaval or Fluzone) 05/04/2022 Seasonal Influenza, Quadriva lent, No Preserve, IM 06/10/2015 Seasonal Influenza, Split, I IV3, With Preserve, Inj 02/26/2013,02/14/2012,03/23/2011,03/25,06/04/2009 TD, Preservative Free 10/18/2017 TDAP (age 11 and older)(Adacel) 07/25/2007 documented as of this encounter Social History Tobacco Use Types Packs/Day Years Used Date Smoking Tobacco: Every Day Cigarettes 0.3 20 Passive Smoke Exposure: Current Smokeless Tobacco: Never Tobacco Cessation:Ready to Q uit: Not Asked; Counseling Given: Not Answered Comments:1 pack a week Alcohol Use Standard Drinks/Week Comments No 0 (1 standard drink = 0.6 oz pure alcohol) As of 2.2006, the last noted alcohol intake was 18 ounces. Former heavy drinker, some recent reduction PHQ-2 Answer Date Recorded PHQ-2 Score 0 10/10/2018 Sex and Gender Information Value Date Recorded Sex Assigned at Male 10/10/2018 5:23 PM EDT Gender Identity Male 10/10/2018 5:23 PM EDT Sexual Orientation Straight 10/10/2018 5: 23 PM EDT Job Start Date Occupation Industry Not on file Not on file Not on file documented as of this encounter Last Filed Vital Signs Vital Sign Reading Time Taken Comments Blood Pressure 138/88 07/22/2023 12:28 PM EDT Pulse 64 07/22/2023 12:28 PM EDT Temperature 36.2 C (97.1 F) 07/22/2023 12:28 PM E DT Respiratory Rate 18 07/22/2023 12:28 PM EDT Oxygen Saturation 99% 07/22/2023 12:28 PM EDT Inhaled Oxygen Concentration - - Weight 76.2 kg (168 lb) 07/22/2023 12:28 PM EDT Height - - Body Mass Index 22.78 09/15/2022 7:50 AM EDT documented in this encounter Patient Instructions * Patient Instructions* Sandra Simental MD - 07/22/2023 12:46 PM EDT Metoprolol 50 mg twice daily Increase dose of lisinopril 20 mg daily Resume coumadin 5 mg daily and continue baby aspirin daily Thyroid med , levothyroxine 88 mcg daily Check out [facility] medication coupon for %80 discount And metoprolol and lisinopril are cheap - $10 for 3 mo supply documented in this encounter Progress Notes * Sandra Simental MD - 07/22/2023 1:17 PM EDT Subjective Efrain Maradiaga is a 63 year old male. Chief Complaint Patient presents with Acute Pt is here today for having trouble with A-fib. Pt had a bad day on Tuesday. Pt's made him come today. Pt doesn't have insurance and wanted to what. Pt is only taking two of his medications Metoprolol and amlopine due to not having insurance to gethis other medication HPI: Here for afib, med concern No insurance, his medicare will be effective on August 30 Has been taking amlodipine and metoprolol only Known afib, hx of [place] thrombosis, CMP, HTN , hypothyroidism Some weight gain, fatigue But denies CP, SOB, leg swelling PMH: Patient Active Problem List Diagnosis Code CHRONIC HEPATITIS C W/O MENTION OF HEPATIC COMA B18.2 Hypothyroidism E03.9 ADVANCE DIRECTIVE INFORMATION Malaise and fatigue R53.81, R53.83 Hypertrophic cardiomyopathy (HCC) I42.2 Moderate mitral regurgitation I34.0 Persistent atrial fibrillation (HCC) I48.19 Left atrial thrombus I51.3 Current Outpatient Medications Medication Sig Dispense Refill Metoprolol Succinate ER 50 MG Oral Tablet Extended Release 24 Hour (toPROL XL) Take 1 Tablet by mouth in the morning. 90 Tablet 3 Levothyroxine Sodium 88 MCG Oral Tablet (Levoxyl) Take 1 Tablet by mouth in the morning. (at least 30 min prior to breakfast or other meds). 90 Tablet 3 Warfarin Sodium 5 MG Oral Tablet (Coumadin) Take one tablet by mouth every evening as directed by coumadin clinic 120 Tablet 3 Lisinopril 20 MG Oral Tablet (Prinivil) Take 1 Tablet by mouth in the morning. 90 Tablet 3 Aspirin Low Dose 81 MG Oral Tablet Chewable (aspirin) TAKE 1 TABLET BY MOUTH EVERY DAY (Patient nottaking: Reported on 07/22/2023) 90 Tab 3 hydrOXYzine HCl 25 MG Oral Tablet Take 1 Tablet by mouth every 6 hours as needed for Anxiety. (Patient not taking: Reported on 07/22/2023) 40 Tablet 2 Klor-Con M10 10 MEQ Oral Tablet Extended Release (potassium chloride ER) TAKE 1 TABLET BY MOUTH EVERY DAY IN THE MORNING (Patient not taking: Reported on 07/22/2023) 90 Tablet 3 No current facility-administered medications for this visit. 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 Former heavy drinker, some recent reduction Drug use: Yes Types: Marijuana Sexual activity: Not on file Other Topics Concern Service Not Asked Blood Transfusions No Caffeine Concern Not Asked Occupational Exposure Not Asked Hobby Hazards Not Asked Sleep Concern Not Asked Stress Concern Not Asked Weight Concern Not Asked Special Diet Not Asked Back Care Not Asked Exercise Not Asked Bike Helmet Not Asked Seat Belt Not Asked Self-Exams Not Asked Social History Narrative Not on file Social Determinants of Health Financial Resource Strain: Not on file Food Insecurity: Not on file Transportation Needs: Not on file Physical Activity: Not on file Stress: Not on file Social Connections: Not on file Intimate Partner Violence: Not on file Housing Stability: Not on file Review of Systems Constitutional: Positive for activity change (fatigue) and fatigue. Negative for appetite change, chills, diaphoresis, fever and unexpected weight change. Respiratory: Negative for cough, chest tightness, shortness of breath and wheezing. Cardiovascular: Positive for palpitations. Negative for chest pain and leg swelling. Gastrointestinal: Negative for abdominal distention and abdominal pain. Neurological: Positive for dizziness and light-headedness. Negative for weakness and headaches. Psychiatric/Behavioral: Positive for dysphoric mood and sleep disturbance. Negative for agitation and behavioral problems. The patient is nervous/anxious. Objective BP 138/88 | Pulse 64 | Temp 36.2 C (97.1 F) (Infrared ) | Resp 18 | Wt 76.2 kg (168 lb) | SpO2 99% | BMI 22.78 kg/m | BSA 1.97 m Physical Exam Constitutional: General: He is not in acute distress. Appearance: Normal appearance. He is normal weight. He is not ill-appearing, toxic-appearing or diaphoretic. HENT: Head: Normocephalic and atraumatic. Nose: Nose normal. Eyes: Extraocular Movements: Extraocular movements intact. Cardiovascular: Rate and Rhythm: Normal rate. Rhythm irregular. Pulses: Normal pulses. Pulmonary: Effort: Pulmonary effort is normal. No respiratory distress. Breath sounds: No stridor. No wheezing, rhonchi or rales. Chest: Chest wall: No tenderness. Musculoskeletal: Right lower leg: No edema. Left lower leg: No edema. Neurological: General: No focal deficit present. Mental Status: He is alert and oriented to person, place, and time. Psychiatric: Behavior: Behavior normal. ASSESSMENT/PLAN: Persistent atrial fibrillation (HCC) (Primary) - PT INR; Future; Expected date: 07/22/2023 - COMPREHENSIVE METABOLIC PANEL; Future; Expected date: 07/22/2023 - CBC WITH WBC DIFFERENTIAL; Future; Expected date: 07/22/2023 Acquired hypothyroidism - Levothyroxine Sodium 88 MCG Oral Tablet (Levoxyl); Take 1 Tablet by mouth in the morning. (at least 30 min prior to breakfast or other meds). - TSH WITH FREE T4 IF INDICATED; Future; Expected date: 07/22/2023 Left atrial thrombus - LIPID PANEL WITH DIRECT LDL IF TG IS HIGH; Future; Expected date: 07/22/2023 - COMPREHENSIVE METABOLIC PANEL; Future; Expected date: 07/22/2023 - CBC WITH WBC DIFFERENTIAL; Future; Expected date: 07/22/2023 Hypertrophic cardiomyopathy (HCC) - LIPID PANEL WITH DIRECT LDL IF TG IS HIGH; Future; Expected date: 07/22/2023 - COMPREHENSIVE METABOLIC PANEL; Future; Expected date: 07/22/2023 - CBC WITH WBC DIFFERENTIAL; Future; Expected date: 07/22/2023 Anticoagulated on Coumadin - PT INR; Future; Expected date: 07/22/2023 Other orders - Warfarin Sodium 5 MG Oral Tablet (Coumadin); Take one tablet by mouth every evening as directed by coumadin clinic - Lisinopril 20 MG Oral Tablet (Prinivil); Take 1 Tablet by mouth in the morning. Patient Instructions Metoprolol 50 mg twice daily Increase dose of lisinopril 20 mg daily Resume coumadin 5 mg daily and continue baby aspirin daily Thyroid med , levothyroxine 88 mcg daily Check out [facility] medication coupon for %80 discount And metoprolol and lisinopril are cheap - $10 for 3 mo supply Blood tests on august 30 Sandra Simental MD documented in this encounter Nursing Notes * Tameka Galindo LPN - 07/22/2023 12:25 PM EDT Chief Complaint Patient presents with Acute Pt is here today for having trouble with A-fib. Pt had a bad day on Tuesday. Pt's made him come today. Pt doesn't have insurance and wanted to what. documented in this encounter Plan of Treatment Upcoming Encounters Date Type Department Care Team (Late st Contact Info) Description 08/18/2023 3:00 PM EDT Office Visit Cardiology, [facility] [address] [facility] [place] [address] Yvette Jessica CRNP [address] [facility] [place] [address] Scheduled Orders Name Type Priority Associated Diagnoses Orde r Schedule LIPID PANEL WITH DIRECT LDL IF TG IS HIGH Lab Routine Left atrial thrombus Hypertrophic cardiomyopathy (HCC) Expected: 07/22/2023, Expires: 07/21/2024 PT INR Lab Routine Persistent atrial fibrillation (HCC) Anticoagulated on Coumadin Expected: 07/22/2023 (Approximate), Expires: 07/21/2024 TSH WITH FREE T4 IF INDICATED Lab Routine Acquired hypothyroidism Expected: 07/22/2023 (Approximate), Expires: 07/21/2024 COMPREHENSIVE METABOLIC PANEL Lab Routine Persistent atrial fibrillation (HCC) Left atrial thrombus Hypertrophic cardiomyopathy (HCC) Expected: 07/22/2023 (Approximate), Expires: 07/21/2024 CBC WITH WBC DIFFERENTIAL Lab Routine Persistent atrial fibrillation (HCC) Left atrial thrombus Hypertrophic cardiomyopathy (HCC) Expected: 07/22/2023 (Approximate), Expires: 07/21/2024 Health Maintenance Due Date Last Done Comments DISCUSS TOBACCO CESSATION (REFER TO SMARTSET #3291) 1960 Zoster Vaccines (1 of 2) 2009 Pneumococcal Vaccine: Pediatrics (0 to 5 Years) and At-Risk Patients (6 to 64 Years) (2 of 2 - PCV) 12/02/2009 12/02/2008 COLONOSCOPY-ANNUAL AGES 18-100 03/09/2013 03/09/2012, 05/27/2010, 05/25/2010 Depression Screening 10/11/2019 10/10/2018 COVID-19 Vaccine (3 - 2022- season) 2022 08/15/2020, 07/25/2020 Influenza Vaccine (FLU shot) (#1) 2022 05/04/2022, 06/10/2015, 02/26/2013, Additional history exists TSH 09/16/2023 09/15/2022, 08/2022, 10/29/2021, Additional history exists Lipid Panel 05/06/2027 05/06/2022, 08/31, 06/19/2008 DTaP,Tdap,and Td Vaccines (3 - Td or Tdap) 10/19/2027 10/18/2017, 07/25/2007 GARDASIL-HPV IMMUNIZATION SERIES Aged Out No longer eligible based on patient's age to complete this topic Hepatitis B Aged Out No longer eligi ble based on patient's age to complete this topic MENINGOCOCCAL (MENACTRA/MENVEO) Aged Out No longer eligible based on patient's age to complete this topic documented as of this encounter Medical Devices Not on filedocumented as of this encounter Visit Diagnoses Diagnosis Persistent atrial fibrillation (HCC)- Primary Atrial fibrillation Acquired hypothyroidism Unspecified hypothyroidism Left atrial thrombus Other ill-defined heart disease Hypertrophic cardiomyopathy (HCC) Other hypertrophic cardiomyopathy Anticoagulated on Coumadin Encounter for therapeutic drug monitoring documented in this encounter Care Teams Supervisor [employer] Relationship Specialty Start Date End Date July DENVER Fisher [address] [place] [address] PCP - General Physician Orientor 08/26/22 documented as of this encounter"
--- OUTSIDE RECORDS SUMMARY | 2023-08-27 04:03 | External Medical Summary | Summary of Care ---
Author Name Unknown Organization [facility] Address [address] , [place] Care Team Providers Care Billing Coordinator Name Role Phone Margarita Sierra DENVER Primary Care Provider [phone] Encounter Details Date Type Department Care Team (Late st Contact Info) Description 02/28/2023 Telephone Pharmacy, [facility] [address] [facility] [place] [address] [facility] [address] [facility] [place] [address] Allergies No known active allergiesdocumented as of this encounter (statuses as of 02/28/2023) Medications Medication Sig Dispensed Refills Start Date End Date Status Aspirin Low Dose 81 MG Oral Tablet Chewable (aspirin) TAKE 1 TABLET BY MOUTH EVERY DAY 90 Tab 3 04/24/2020 Active Lisinopril 5 MG Oral Tablet (Prinivil)Indications :HTN, goal to be determined Take 1 Tablet by mouth in the morning. 90 Tablet 3 06/01/2022 Active amLODIPine Besylate 5 MG Oral Tablet (Norvasc)Indications: taking once daily Take 1 Tablet by mouth in the morning. 90 Tablet 3 08/04/2022 Active Metoprolol Succinate ER 50 MG Oral Tablet Extended Release 24 Hour (toPROL XL) Take 1 Tablet by mouth in the morning. 90 Tablet 3 08/04/2022 Active hydrOXYzine HCl 25 MG Oral TabletIndications:Chow ic attack Take 1 Tablet by mouth every 6 hours as needed for Anxiety. 40 Tablet 2 09/15/2022 Active Levothyroxine Sodium 88 MCG Oral Tablet (Levoxyl)Indications: Acquired hypothyroidism Take 1 Tablet by mouth in the morning. (at least 30 min prior to breakfast or other meds). 90 Tablet 3 09/15/2022 Active Klor-Con M10 10 MEQ Oral Tablet Extended Release (potassium chloride ER)Indications:[place] lemia TAKE 1 TABLET BY MOUTH EVERY DAY IN THE MORNING 90 Tablet 3 11/10/2022 Active Warfarin Sodium 5 MG Oral Tablet (Coumadin)Indications :Paroxysmal atrial fibrillation (HCC) TAKE ONE TABLET BY MOUTH EVERY EVENING DIRECTED BY COUMADIN CLINIC 120 Tablet 3 02/04/2023 Active documented as of this encounter (statuses as of 02/28/2023) Active Problems Problem Noted Date Diagnosed Date Persistent atrial fibrillation 08/04/2022 Left atrial thrombus 08/04/2022 Moderate mitral regurgitation 12/01/2017 Paroxysmal atrial fibrillation 12/23/2016 Hypertrophic cardiomyopathy 06/04/2010 Malaise and fatigue 09/20/2006 ADVANCE DIRECTIVE INFORMATION 03/24/2005 Overview: informed he can bring in Hypothyroidism 12/18/2004 CHRONIC HEPATITIS C W/O MENTION OF HEPATIC COMA 10/31/2003 documented as of this encounter (statuses as of 02/28/2023) Resolved Problems Problem Noted Date Diagnosed Date Resolved Date SVT (supraventricular tachycardia) 12/01/2017 10/10/2018 Hemorrhage of rectum and anus 06/02/2010 10/10/2018 Myalgia and myositis 09/20/2006 018 Headache 09/20/2006 10/10/2018 Overview: ICD-10 update of inactive term INF ARTHRITIS NEC-HAND 08/24/200510/18 Major depressive disorder 11/19/2003 Overview: ICD-10 update of inactive term documented as of this encounter (statuses as of 02/28/2023) Immunizations Name Administration Dates Next Due COVID-19 mRNA, LNP-s, No Pre serve, 2-Dose Series (Intimate [employer] 2 Conception) 08/15/2020,07/25/2020 Pneumococcal Polysaccharide PPV23 (Pneumovax) 12/02/2008 SEASONAL INFLUENZA, PF, 6 M & Above, IM , (FLULAVAL or FLUZONE) 05/04/2022 Seasonal Influenza, Quadriva lent, No Preserve, IM 06/10/2015 Seasonal Influenza, Split, I IV3, With Preserve, Inj 02/26/2013,02/14/2012,03/23/2011,03/25,06/04/2009 TD, Preservative Free 10/18/2017 TDAP (age 11 and older)(Adacel) 07/25/2007 documented as of this encounter Social History Tobacco Use Types Packs/Day Years Used Date Smoking Tobacco: Every Day Cigarettes 0.3 20 Smokeless Tobacco: Never Comments:1 pack a week Alcohol Use Standard Drinks/Week Comments No 0 (1 standard drink = 0.6 oz pure alcohol) As of 2.17.2006, the last noted alcohol intake was 18 [...] on file documented as of this encounter Miscellaneous Notes * Telephone Encounter - Sandra Abad border patrol agent - 02/28/2023 7:48 AM EDT [facility] Discharge letter mailed to patient today via Certified Mail. Sandra Abad MA Disposal Operator I [facility] ([facility]) documented in this encounter Plan of Treatment Upcoming Encounters Date Type Department Care Team (Late st Contact Info) Description 03/16/2023 10:40 AM EST Office Visit Podiatry [facility] [address] [facility] [place] [address] Michaela Henry DPM [address] [place] [address] [place] [address] 05/19/2023 11:30 AM EST Office Visit Cardiology, [facility] [address] [place] [address] Chan Light MD [address] [place] [address] Health Maintenance Due Date Last Done Comments DISCUSS TOBACCO CESSATION (REFER TO SMARTSET #2860) 1960 Zoster Vaccines (1 of 2) 2009 Pneumococcal Vaccine: Pediatrics (0 to 5 Years) and At-Risk Patients (6 to 64 Years) (2 - PCV) 12/02/2009 12/02/2008 COLONOSCOPY-ANNUAL AGES 18-100 [...] Not on filedocumented as of this encounter Care Teams Billing Coordinator Relationship Specialty Start Date End Date Rigo Margarita Phillip, PETRONAC [address] [place] [address] PCP - General Physician Geotechnical Field Technician 08/26/22 documented as of this encounter
--- OUTSIDE RECORDS SUMMARY | 2023-08-27 04:03 | External Medical Summary | Summary of Care ---
Author Name Unknown Organization [facility] Address [address] [place] [address] Phone [phone] Care Team Providers Care Hair Or Beauty Salon Assistant Name Role Phone Margarita Sierra DEN[place] Primary Care Provider [phone] Reason for Referral * Evaluate & Treat - Unlimited Visits (Within 3 days (urgent)) - Pending Review Specialty Diagnoses / Procedures Referred By Prieto zapata Referred To Contact [facility] / Pharmacy Diagnoses Persistent atrial fibrillation (HCC) Left atrial thrombus Yvette Jessica CRNP [address] [place] [address] Referral ID Status Reason Start Date Expiration Date Visits Requested Visits Authorized [id number] Pending Review Specialty Services Required 08/18/2023 02/14/2024 99 99 Question Answer Referral Priority Within 3 days (urgent) Where should this appointment be scheduled? Gabe Comments Anticoagulation referral for management of: Warfarin Indication and INR goal for Warfarin Management: Stroke Prevention: Atrial Fibrillation/Flutter 2.0 - 3.0 Relevant History: Persistent A-fib, hx of a left atrial thrombus dx 06/2022 Enoxaparin bridging required? No Minimum frequency patient should be seen in person for medication management: as appropriate per clinical condition and patient status By my signature, I understand that my patient Efrain Maradiaga will have his medication therapy managed by the [facility] ([facility]) per established policies, procedures, and protocols. I also certify that this referral may serve as an initiation of service for the management of drug therapy in the above noted patient. [facility] providers will be responsible for scheduling patient visits, obtaining appropriate laboratory studies, and adjusting medication management therapy per patient's need, in addition to those roles spelled out in the clinic policy, procedures, and drug management protocols. I understand that the service provided by the [facility] is voluntary and have informed patient that they can refuse the service at their discretion. I am aware that the [facility] will provide me with a copy of the patient encounter via my [facility]. I authorize the [facility] to carry out these activities on my behalf. I consider this program to be a necessary part of the patient's medical care. MAURA Romano * Precert (Within 10 days (routine)) - Pending Review Specialty Diagnoses / Procedures Referred By Contac t Referred To Contact Cardiac Studies Diagnoses Persistent atrial fibrillation (HCC) Moderate mitral regurgitation Left atrial thrombus Procedures ECHO, COMPLETE (2D), TRANS-THORACIC Yvette Jessica CRNP [address] [place] [address] Referral ID Status Reason Start Date Expiration Date Visits Requested Visits Authorized [id number] Pending Review Precert 08/25/2023 999 999 Reason for Visit * Reason Comments Follow Up Encounter Details Date Type Department Care Team (Late st Contact Info) Description 08/18/2023 3:00 PM EDT Office Visit Cardiology, [facility] [address] [place] [address] Yvette eJssica CRNP [address] [place] [id number] Dyspnea on exertion*; Persistent atrial fibrillation (HCC); Left atrial thrombus; Moderate mitral regurgitation; HTN, goal below 140/90 Allergies No known active allergiesdocumented as of this encounter (statuses as of 08/24/2023) Medications Medication Sig Dispensed Refills Start Date End Date Status Aspirin Low Dose 81 MG Oral Tablet Chewable (aspirin) TAKE 1 TABLET BY MOUTH EVERY DAY 90 Tab 3 04/24/2020 Active Additional Information Patient not taking.Reported on 07/22/2023 hydrOXYzine HCl 25 MG Oral TabletIndications:P anic attack Take 1 Tablet by mouth every 6 hours as needed for Anxiety. 40 Tablet 2 09/15/2022 Active Additional Information Patient not taking.Reported on 07/22/2023 Klor-Con M10 10 MEQ Oral Tablet Extended Release (potassium chloride ER)Indications:Hypo kalemia TAKE 1 TABLET BY MOUTH EVERY DAY IN THE MORNING 90 Tablet 3 11/10/2022 Active Additional Information Patient not taking.Reported on 07/22/2023 Levothyroxine Sodium 88 MCG Oral Tablet (Levoxyl)Indication s:Acquired hypothyroidism Take 1 Tablet by mouth in the morning. (at least 30 min prior to breakfast or other meds). 90 Tablet 3 07/22/2023 Active Warfarin Sodium 5 MG Oral Tablet (Coumadin) Take one tablet by mouth every evening as directed by coumadin clinic 120 Tablet 3 07/22/2023 Active Lisinopril 20 MG Oral Tablet (Prinivil) Take 1 Tablet by mouth in the morning. 90 Tablet 3 07/22/2023 Active Metoprolol Succinate ER 50 MG Oral Tablet Extended Release 24 Hour (toPROL XL)Indications:Pers istent atrial fibrillation (HCC) Take 1 tablet by mouth each morning, and take 1/2 tablet (25mg ) each evening 120 Tablet 3 08/18/2023 Active Metoprolol Succinate ER 50 MG Oral Tablet Extended Release 24 Hour (toPROL XL) Take 1 Tablet by mouth in the morning. 90 Tablet 3 08/04/2022 4 Discontinu ed(Refill) documented as of this encounter (statuses as of 08/24/2023) Active Problems Problem Noted Date Diagnosed Date Persistent atrial fibrillation 08/04/2022 Left atrial thrombus 08/04/2022 Moderate mitral regurgitation 12/01/2017 Hypertrophic cardiomyopathy 06/04/2010 Malaise and fatigue 09/20/2006 ADVANCE DIRECTIVE INFORMATION 03/24/2005 Overview: informed he can bring in Hypothyroidism 12/18/2004 CHRONIC HEPATITIS C W/O MENTION OF HEPATIC COMA 10/31/2003 documented as of this encounter (statuses as of 08/24/2023) Resolved Problems Problem Noted Date Diagnosed Date Resolved Date SVT (supraventricular tachycardia) 12/01/2017 10/10/2018 Paroxysmal atrial fibrillation 12/23/2016 07/22/2023 Hemorrhage of rectum and anus 06/02/2010 10/10/2018 Myalgia and myositis 09/20/2006 018 Headache 09/20/2006 10/10/2018 Overview: ICD-10 update of inactive term INF ARTHRITIS NEC-HAND 08/24/200510/18 Major depressive disorder 11/19/2003 Overview: ICD-10 update of inactive term documented as of this encounter (statuses as of 08/24/2023) Immunizations Name Administration Dates Next Due COVID-19 [...] Sign Reading Time Taken Comments Blood Pressure 116/68 08/18/2023 2:53 PM EDT Pulse 56 08/18/2023 2:53 PM EDT Temperature - - Respiratory Rate - - Oxygen Saturation 90% 08/18/2023 2:53 PM EDT Inhaled Oxygen Concentration - - Weight 75.3 kg (166 lb) 08/18/2023 2:53 PM EDT Height - - Body Mass Index 22.51 09/15/2022 7:50 AM EDT documented in this encounter Patient Instructions * Patient Instructions* Yvette Jessica CRNP - 08/18/2023 3:28 PM EDT Metoprolol Succinate (Toprol xl). Continue taking 1 tablet every morning (50mg). Take 1/2 of tablet(25mg) every evening 2. Continue all other medications including your warfarin (Coumadin) 3. The [facility] clinic will contact you to check your blood work. 4. Plan to have your Echocardiogram (ultrasound of the heart) before your next appointment with cardiology documented in this encounter Progress Notes * Yvette Jessica CRNP - 08/18/2023 3:00 PM EDT 08/18/2023 Cardiology Follow Up Primary Mark Up Designer: Dr. Light Cardiac Problems: 1. Apical hypertrophic cardiomyopathy with diastolic left ventricular dysfunction 2. Moderate to severe mitral insufficiency 3. Labile hypertension 4. persistent atrial fibrillation status post synchronized electrical cardioversion September 2017, October2019, 5. Pulmonary hypertension secondary to left heart issues 6. 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 No Cardioversion HPI: Efrain Maradiaga is a 63 year old male presents for routine cardiology follow up. Patient was last seen 08/04/22 by Bisi Gipson PA-C Patient underwent attempted CARTER cardioversion in July 2021 and October 2021 and again in Jun 2022, but CARTER demonstrated small left atrial appendage thrombus and CV was not attempted. His INR's have been therapeutic at that time. Patient presents today with increased anxiety. He complaints of ongoing palpitations. He gets shortof breath after only climbing one flight of stairs. Patient admits that he had financial concerns and had run out of all of his medications last summer. He recently was restarted one month ago. BP controlled. Reports no chest pain, pressure, no lower extremity edema and no near syncope. Reports compliance on medications now. EKG obtained today demonstrates A-fib, St and Marked T wave abnormality consider anterolateral ischemia (noted on prior study) Rate 61bpm REVIEW OF SYSTEMS: See HPI for pertinent positives. All others negative other than those noted in the HPI. CONSTITUTIONAL: No change in weight, No weakness, No fatigue and No fevers, No sweats or chills. PULMONARY: No cough, sputum, or hemoptysis, No wheezing, No shortness or breath and No recent change in breathing. CARDIOVASCULAR: No chest pain, No dyspnea on exertion, No edema, No palpitations and No syncope. GASTROINTESTINAL: No abdominal pain, No change in bowel habits, No significant heartburn, No nausea, No vomiting, No diarrhea, No constipation, No blood in stools or black tarry stools. No dysphagia. HEMATOLOGIC: No abnormal bleeding and No bruising. NEUROLOGICAL: Normal balance, No headaches and No weakness. Review of patient's allergies indicates: No Known Allergies Current Outpatient Medications Medication Sig Dispense Refill Levothyroxine Sodium 88 MCG Oral Tablet (Levoxyl) [...] mouth in the morning. 90 Tablet 3 Metoprolol Succinate ER 50 MG Oral Tablet Extended Release 24 Hour (toPROL XL) Take 1 tablet by mouth each morning, and take 1/2 tablet (25mg ) each evening 120 Tablet 3 Aspirin Low Dose 81 MG [...] C (HCC) genotype 1 Headache(784.0) Headache, NOS Family History Problem Relation Age of Onset Cancer Mother No Past Hx Father Social History Socioeconomic History Marital status: Number of children: 3 Years of education: GED Occupational History Occupation: [employer] Employer: [employer] Tobacco Use Smoking status: Every Day Current [...] recent reduction Drug use: Yes Types: Marijuana Other Topics Concern Blood Transfusions No OBJECTIVE/PHYSICAL EXAMINATION: BP 116/68 | Pulse 56 | Wt 75.3 kg (166 lb) | SpO2 90% | BMI 22.51 kg/m | BSA 1.96 m General: No acute distress. A+Ox3. HEENT: Normocephalic. Atraumatic. PERRL. EOMI. Conjunctiva and sclera clear. NECK: No carotid bruits. No JVD. Carotid upstrokes are brisk. Heart: RRR. S1 and S2 noted. No murmur. No rubs or gallops. PMI non displaced. Lungs: Clear to auscultation. No wheezes.No rhonchi. No rales. Abdomen: Normal bowel sounds. Soft. Nontender. No masses or organomegaly. No abdominal bruits. Extremities: No edema. No clubbing or cyanosis. Pulses: radial=2/4, posterior tibial=2/4, dorsalis pedis = 2/4. NEURO: No focal deficits. PSYCH: Appropriate affect and insight. DATA Labs & Imaging Reviewed Below: Carter report reviewed dated June 2022 at [facility] with Dr. Light: Studies performed to assess for left atrial appendage thrombus. Study was directly compared to prior study of November 11, 2021. Findings of apical hypertrophic cardiomyopathy remain present with preserved LV systolic function. The left atrium is enlarged with spontaneous contrast and small left atrial appendage thrombus still present. EKG performed May 2022 Atrial fibrillation with slow ventricular response Left ventricular hypertrophy Marked ST abnormality, possible anterolateral subendocardial injury Abnormal ECG When compared with ECG of 29-OCT-2021 08:12, Incomplete right bundle branch block is no longer Present Minimal criteria for Septal infarct are no longer Present ST less depressed in Inferior leads Carter report reviewed dated October 2021: Limited images were obtained to reassess left atrial appendage thrombus identified and prior study in July 2021. Significant thrombus as well as spontaneous contrast remains in the left atrial appendage in the left atrium. In comparison to prior study, Afib heart rates appear were better controlled. LV is normal in size. Severe concentric LVH greatest at the apex. LV wall motion is normal. LV systolic function is normal. Ejection fraction 60-65%. Spontaneous contrast and thrombus is seen in the left atrial appendage. EKG performed August 2021: Atrial fibrillation Left ventricular hypertrophy ST & T wave abnormality, consider inferior ischemia ST & T wave abnormality, consider anterolateral ischemia Prolonged QT interval or tu fusion, consider myocardial disease, electrolyte imbalance, or drug effects Abnormal ECG When compared with ECG of 12-AUG-2021 10:47, Minimal criteria for Septal infarct are no longer Present ST less depressed in Inferior leads T wave inversion less evident in Inferior leads CARTER report reviewed dated August 20, 2021 at [facility]: LV is normal in size. Severe concentric LVH greatest at the apex. LV wall motion is normal. LV systolic function is normal. Ejection fraction 60-65%. Spontaneous contrast and thrombus is seen in the left atrial appendage. EKG performed July 2021: Atrial fibrillation with a controlled ventricular rate at 67 beats per minute Voltage criteria for LVH. Marked ST/T wave abnormality EKG performed June 2021: Normal sinus rhythm Left ventricular hypertrophy with strain patterns No significant change from previous Stress nuclear imaging May 30, 2020 Myocardial perfusion imaging is normal. Overall left ventricular systolic function was normal without regional wall motion abnormalities. The left ventricular ejection fraction was 58%. No significant change compared to previous study of December 2016. Echocardiogram May 30, 2020 There is severe apical hypertrophy consistent apical hypertrophic cardiomyopathy Left ventral systolic function is normal Calculated LV ejection Fraction = 57% (bi-plane method of discs). Grade 2 diastolic dysfunction. Mild aortic valve sclerosis without stenosis. Moderate mitral regurgitation. Mild tricuspid regurgitation. Severe left atrial enlargement. Pulmonary hypertension is present. The estimated pulmonary artery systolic pressure is 55 mm Hg assuming a right atrial pressure of 3 mmHg. ASSESSMENT/PLAN: 63 year old year old male 1. Dyspnea on exertion -Multi-factorial given history of persistent A-fib, poor exercise tolerance and recent lapse in prescription medications. -Plan is to increase Toprol xl and obtain echocardiogram to assess overall structure and function. 2. Persistent atrial fibrillation (HCC) -As confirmed on EKG today -Worsening palpitations and dyspnea on exertion; however, patient has been without his medications for several months. He is back on his warfarin, but needs to be followed by the coag clinic for proper management -Continue Toprol xl 50mg QAM, but start 25mg PO QPM to help with increased palpitations. - EKG - Metoprolol Succinate ER 50 MG Oral Tablet Extended Release 24 Hour (toPROL XL); Take 1 tablet by mouth each morning, and take 1/2 tablet (25mg ) each evening Dispense: 120 Tablet; Refill: 3 - ECHO, COMPLETE (2D), TRANS-THORACIC; Future - ANTI-COAGULATION REFERRAL OP 3. Left atrial thrombus -Continue warfarin, will establish care with [facility] coag for proper management - ECHO, COMPLETE (2D), TRANS-THORACIC; Future - ANTI-COAGULATION REFERRAL OP 4. Moderate mitral regurgitation -Dyspnea on exertion can be related to progressive valvular disease. Patient's dyspnea is multifactorial as explained above. Will obtain echocardiogram for reassessment. - EKG - ECHO, COMPLETE (2D), TRANS-THORACIC; Future 5. HTN, goal below 140/90 -At target. Continue toprol xl and lisinopril DISPOSITION: Follow up 3 months or if symptoms worsen/fail to improve. All questions were answered to the patients satisfaction. Patient advised to report to ED with any and all emergencies. The patient agrees to the above plan and will call with additional questions or concerns. MAURA Romano Cardiology, [address] [place] [address] I spent a total of 37 minutes on the date of service in preparation, delivery, and documentation ofthe care provided to Efrain Maradiaga excluding any time spent in the performance of separately billed services. This chart was completed in part utilizing [employer] Speech Voice Recognition Software. Grammatical errors, random word insertions, pronoun errors, and incomplete sentences are an occasional consequence of this system due to software limitations, ambient noise, and hardware issues. Any formal questions or concerns about the content, text, or information contained within the body of this dictation should be directly addressed to the provider for clarification. documented in this encounter Procedure Notes * Jose Chaudhari DO - 08/18/2023 3:01 PM EDTAssociated Order(s): EKG REASON FOR STUDY: routine;routine CONCLUSIONS: Atrial fibrillation Left ventricular hypertrophy ST & Marked T wave abnormality, consider anterolateral ischemia Abnormal ECG When compared with ECG of 15-Sep-2022 07:29, QT has shortened Ventricular Rate: 61 Atrial Rate: 66 QRS Duration: 92 QT/QTc: 446/448 ms P-R-T [place]: 0 : 18 : 181 degrees documented in this encounter Nursing Notes * Isamar Augustin CMA - 08/18/2023 2:53 PM EDT Examination Room: 7 Name: Efrain Maradiaga Date of : (1960) Reason for Visit: 1 yr Interim Hospitalization(s): none Problems/Concerns: denied Chest Pain/SOB: chest pain and SOB. In Afib. Getting worse. My [facility] is a way you can talk to your provider online through e-mail. Would you like to sign up? I can activate it for you? ALREADY ACTIVE Patient was instructed to not get up on the exam table until directed and assisted by their provider; patient is to remain seated in the chair/ wheelchair/ exam table for fall prevention and safety reasons. Patient is aware to have assistance to step down off exam table with personnel. Patient voiced full comprehension of instructions. documented in this encounter Plan of Treatment Upcoming Encounters Date Type Department Care Team (Late st Contact Info) Description 09/23/2023 8:30 AM EDT Anticoagulation Cardiology, [facility] [address] [facility] [place] [address] [facility] Card[facility] [address] [facility] [place] [address] 11/04/2023 7:15 AM EDT Cardiac Studies Cardiac Studies, [facility] [address] [facility] [place] [address] 11/23/2023 8:00 AM EDT Office Visit Cardiology, [facility] [address] [facility] [place] [address] Yvette Jessica CRNP [address] [facility] [place] [address] Scheduled Orders Name Type Priority Associated Diagnoses Orde r Schedule ECHO, COMPLETE (2D), TRANS-THORACIC Echocardiology Routine Persistent atrial fibrillation (HCC) Moderate mitral regurgitation Left atrial thrombus Expected: 08/25/2023 (Approximate), Expires: 09/16/2025 Scheduled Referrals Name Type Priority Associated Diagnoses Orde r Schedule ANTI-COAGULATION REFERRAL OP Referral Within 3 days (urgent) Persistent atrial fibrillation (HCC) Left atrial thrombus Ordered: 08/18/2023 Health Maintenance Due Date Last Done Comments DISCUSS TOBACCO CESSATION (REFER TO SMARTSET #[id number]) 1960 Zoster Vaccines (1 of 2) 2009 Pneumococcal Vaccine: Pediatrics (0 to 5 Years) and At-Risk Patients (6 to 64 Years) (2 of 2 - PCV) 12/02/2009 12/02/2008 COLONOSCOPY-ANNUAL AGES 18-100 03/09/2013 03/09/2012, 05/27/2010, 05/25/2010 Depression Screening 10/11/2019 10/10/2018 COVID-19 Vaccine (3 - 2022- season) 2022 08/15/2020, 07/25/2020 TSH 09/16/2023 09/15/2022, 08/2022, 10/29/2021, Additional history exists Influenza Vaccine (FLU shot) (Season Ended) 2024 05/04/2022, 06/10/2015, 02/26/2013, Additional history exists Lipid Panel 05/06/2027 05/06/2022, [...] Not on filedocumented as of this encounter Procedures Procedure Name Priority Date/Time Associated Diagnosis Comments MD ECG ROUTINE ECG W/LEAST 12 LDS W/I&R Routine 08/18/2023 3:01 PM EDT Persistent atrial fibrillation (HCC) Moderate mitral regurgitation documented in this encounter Results * EKG (08/18/2023 3:01 PM EDT) 08/18/2023 3:01 PM EDT Narrative Procedure Note Jose Chaudhari DO - 08/18/2023 3:01 PM EDT REASON FOR STUDY: routine;routine CONCLUSIONS: Atrial fibrillation Left ventricular hypertrophy ST & Marked T wave abnormality, consider anterolateral ischemia Abnormal ECG When compared with ECG of 15-Sep-2022 07:29, QT has shortened Ventricular Rate: 61 Atrial Rate: 66 QRS Duration: 92 QT/QTc: 446/448 ms P-R-T [place]: 0 : 18 : 181 degrees Yvette LORENZO EKG [facility] documented in this encounter Visit Diagnoses Diagnosis Dyspnea on exertion- Primary Other dyspnea and respiratory abnormality Persistent atrial fibrillation (HCC) Atrial fibrillation Left atrial thrombus Other ill-defined heart disease Moderate mitral regurgitation Mitral valve disorders HTN, goal below 140/90 Unspecified essential hypertension documented in this encounter Care Teams Hair Or Beauty Salon Assistant Relationship Specialty Start Date End Date Rigo Margarita Phillip, PA-C [address] [place] [address] PCP - General Physician Package Pick Up 08/26/22 documented as of this encounter"
--- OUTSIDE RECORDS SUMMARY | 2023-08-27 04:03 | External Medical Summary | Summary of Care ---
Author Name Unknown Organization [facility] Address [address] [facility] [place] [address] Phone [phone] Care Team Providers Care Teacher Assistant Name Role Phone Latha July [place] Primary Care Provider [phone] Encounter Details Date Type Department Care Team (Late st Contact Info) Description 07/26/2023 Orders Only PATIENT PORTAL DO NOT DELETE THIS DEPT USED BY [place] [id number] Allergies No known active allergiesdocumented as of this encounter (statuses as of 07/26/2023) Medications Medication Sig Dispensed Refills Start Date [...] 08/04/2022 Active hydrOXYzine HCl 25 MG Oral TabletIndications:Pa von attack Take 1 Tablet by mouth every 6 hours as needed for Anxiety. 40 Tablet 2 09/15/2022 Active Additional Information Patient not taking.Reported on 07/22/2023 Klor-Con M10 10 MEQ Oral Tablet Extended Release (potassium chloride ER)Indications:Hypok alemia TAKE 1 TABLET BY MOUTH EVERY DAY IN THE MORNING 90 Tablet 3 11/10/2022 Active Additional Information Patient not taking.Reported on 07/22/2023 Levothyroxine Sodium 88 MCG Oral Tablet (Levoxyl)Indications :Acquired hypothyroidism Take 1 Tablet by mouth in [...] the morning. 90 Tablet 3 07/22/2023 Active documented as of this encounter (statuses as of 07/26/2023) Active Problems Problem Noted Date Diagnosed Date Persistent atrial fibrillation 08/04/2022 Left atrial thrombus 08/04/2022 Moderate mitral regurgitation 12/01/2017 Hypertrophic cardiomyopathy 06/04/2010 Malaise and fatigue 09/20/2006 ADVANCE DIRECTIVE INFORMATION 03/24/2005 Overview: informed he can bring in Hypothyroidism 12/18/2004 CHRONIC HEPATITIS C W/O MENTION OF HEPATIC COMA 10/31/2003 documented as of this encounter (statuses as of 07/26/2023) Resolved Problems Problem Noted Date Diagnosed Date Resolved Date SVT (supraventricular tachycardia) 12/01/2017 10/10/2018 Paroxysmal atrial fibrillation 12/23/2016 07/22/2023 Hemorrhage of rectum and anus 06/02/2010 10/10/2018 Myalgia and myositis 09/20/2006 018 Headache 09/20/2006 10/10/2018 Overview: ICD-10 update of inactive term INF ARTHRITIS NEC-HAND 08/24/200510/18 Major depressive disorder 11/19/2003 Overview: ICD-10 update of inactive term documented as of this encounter (statuses as of 07/26/2023) Immunizations Name Administration Dates Next Due COVID-19 [...] Passive Smoke Exposure: Current Smokeless Tobacco: Never Comments:1 pack a week Alcohol Use Standard Drinks/Week Comments No 0 (1 standard drink = 0.6 oz pure alcohol) As of 2..2006, the last noted alcohol intake was 18 [...] on file documented as of this encounter Plan of Treatment Upcoming Encounters Date Type Department Care Team (Late st Contact Info) Description 08/18/2023 3:00 PM EDT Office Visit Cardiology, [facility] [address] [facility] [place] [address] Yvette Jessica CRNP [address] [facility] [place] [id number] Health Maintenance Due Date Last Done Comments DISCUSS TOBACCO CESSATION (REFER TO SMARTSET #[id number]) 1960 Zoster Vaccines (1 of 2) 2009 Pneumococcal Vaccine: Pediatrics (0 to 5 Years) and At-Risk Patients (6 to 64 Years) (2 of 2 - PCV) 12/02/2009 12/02/2008 COLONOSCOPY-ANNUAL AGES 18-100 03/09/2013 03/09/2012, 05/27/2010, 05/25/2010 Depression Screening 10/11/2019 10/10/2018 COVID-19 Vaccine (3 - 24 season) 2022 08/15/2020, 07/25/2020 Influenza Vaccine (FLU [...] filedocumented as of this encounter Care Teams Teacher Assistant Relationship Specialty Start Date End Date Rigo Margarita [place] [address] [place] [address] PCP - General Physician Clinical Appeals Specialist 08/26/22 documented as of this encounter
--- OUTSIDE RECORDS SUMMARY | 2023-08-27 04:03 | External Medical Summary | Summary of Care ---
Author Name Unknown Organization [facility] Address [address] [place] [address] Phone [phone] Care Team Providers Care Solar Designer Name Role Phone Rigo Margarita Phillip [place] Primary Care Provider [phone] Reason for Visit * Reason Comments Follow Up Encounter Details Date Type Department Care Team (Late st Contact Info) Description 04/13/2023 10:00 AM EST Office Visit Podiatry [facility] [address] [facility] [place] [address] Michaela Henry, DPCande [address] [facility], [place] [id number] Pain of right heel*; Porokeratosis; Skin lesion Allergies No known active allergiesdocumented as of this encounter (statuses as of 04/13/2023) Medications Medication Sig Dispensed Refills Start Date [...] as of this encounter (statuses as of 04/13/2023) Active Problems Problem Noted Date Diagnosed Date Persistent atrial fibrillation 08/04/2022 Left atrial thrombus 08/04/2022 Moderate mitral regurgitation 12/01/2017 Paroxysmal atrial fibrillation 12/23/2016 Hypertrophic cardiomyopathy 06/04/2010 Malaise and fatigue 09/20/2006 ADVANCE DIRECTIVE INFORMATION 03/24/2005 Overview: informed he can bring in Hypothyroidism 12/18/2004 CHRONIC HEPATITIS C W/O MENTION OF HEPATIC COMA 10/31/2003 documented as of this encounter (statuses as of 04/13/2023) Resolved Problems Problem Noted Date Diagnosed Date Resolved Date SVT (supraventricular tachycardia) 12/01/2017 10/10/2018 Hemorrhage of rectum and anus 06/02/2010 10/10/2018 Myalgia and myositis 09/20/2006 018 Headache 09/20/2006 10/10/2018 Overview: ICD-10 update of inactive term INF ARTHRITIS NEC-HAND 08/24/200510/18 Major depressive disorder 11/19/2003 Overview: ICD-10 update of inactive term documented as of this encounter (statuses as of 04/13/2023) Immunizations Name Administration Dates Next Due COVID-19 [...] on file documented as of this encounter Progress Notes * Michaela Henry DPM - 04/13/2023 10:00 AM EST Podiatry [facility] Name: Efrain Maradiaga : 1960 Date: 04/13/2023 REASON FOR VISIT: recurrent painful skin lesion to the right heel SUBJECTIVE: This patient is a 62 year old male who presents today with complaints of a recurrent skin lesion to the right heel which is very painful. I had seen him a few years ago for similar issue.He notes improvement after paring x 2 months but area returned. He has tried picking it out withoutmuch success or relief. 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 Capillary refill time is within normal limits to all toes. Neurologic: Sensation (light touch) intact to the right foot. Musculoskeletal: Pain is reported with palpation of the right plantar foot skin lesion. Dermatological: Hyperkeratotic skin with central white core extending deeper than surrounding skin - right plantar central heel. DIAGNOSTIC STUDIES: None ASSESSMENT: ICD-10-CM 1. Pain of right heel M79.671 2. Porokeratosis Q82.8 3. Skin lesion L98.9 PLAN: I discussed porokeratosis. I did pare the area without incident. I recommended he use an OTC medication for wart with salicylic acid in about one week to help reduce recurrence and thickness. If he has issues, he is to contact this office. Michaela Henry DPM documented in this encounter Nursing Notes * Florinda Vu LPN - 04/13/2023 9:52 AM EST Pt here for lesion on is right heel that is painful at times documented in this encounter Plan of Treatment Health Maintenance Due Date Last Done Comments DISCUSS TOBACCO CESSATION (REFER TO SMARTSET #7535) 1960 Zoster Vaccines (1 of 2) 2009 Pneumococcal Vaccine: Pediatrics (0 to 5 Years) and At-Risk Patients (6 to 64 Years) (2 - PCV) 12/02/2009 12/02/2008 COLONOSCOPY-ANNUAL AGES 18-100 03/09/2013 03/09/2012, 05/27/2010, 05/25/2010 Depression Screening 10/11/2019 10/10/2018 COVID-19 Vaccine ( - 2022- season) 2022 08/15/2020, 07/25/2020 Influenza Vaccine (FLU shot) (#1) 2022 05/04/2022, 06/10/2015, 02/26/2013, Additional history exists TSH 09/16/2023 09/15/2022, 0 08/2022, 10/29/2021, Additional history exists Lipid Panel [...] as of this encounter Visit Diagnoses Diagnosis Pain of right heel- Primary Pain in limb Porokeratosis Other specified congenital anomaly of skin Skin lesion Unspecified disorder of skin and subcutaneous tissue documented in this encounter Care Teams Solar Designer Relationship Specialty Start Date End Date Rigo Margarita [place] Fisher [address] [place] [address] PCP - General Physician Iron Miner 08/26/22 documented as of this encounter
[2023-08-27 06:45] LABS: Basophils # (auto) 0.03 K/uL (0.00-0.20); Basophils % (auto) 0.6 %; Eosinophils # (auto) 0.09 K/uL (0.00-0.50); Eosinophils % (auto) 1.7 %; Hematocrit (blood only) 39.6 % (42.0-52.0); Hemoglobin 14.2 g/dl (14.0-18.0); Immature Granulocytes # (auto) 0.02 K/uL (0.01-0.20); Immature Granulocytes % (auto) 0.4 %; Lymphocytes # (auto) 1.68 K/uL (1.20-3.40); Lymphocytes % (auto) 30.8 %; Mean Corpuscular Hemoglobin 33.8 pg (25.0-34.0); Mean Corpuscular Hgb Conc 35.9 g/dL (32.0-36.0); Mean Corpuscular Volume 94.3 fL (80.0-100.0); Mean Platelet Volume 10.2 fL (9.4-12.4); Monocytes # (auto) 0.67 K/uL (0.11-0.59); Monocytes % (auto) 12.3 %; Neutrophils # (auto) 2.96 K/uL (1.40-6.50); Neutrophils % (auto) 54.2 %; Platelet Count 245 K/uL (130-400); RDW Coefficient of Variation 13.4 % (11.5-14.5); RDW Standard Deviation 46.1 fL (36.4-46.3); White Blood Count 5.45 K/ul (4.8-10.8)
[2023-08-27 06:48] LABS: INR 2.7 (0.9-1.1); Prothrombin Time 27.7 Seconds (9.0-12.0)
[2023-08-27 07:13] LABS: BUN Creatinine Ratio 13.7 (10-20); Calcium 9.3 mg/dl (8.6-10.3); Creatinine Clr Calc Pharmacy 64.6 ml/min; Est GFR (African American) 75.9 ml/min; Est GFR (Non-African American) 65.5 ml/min; Potassium 3.6 mmol/L (3.5-5.1)
[2023-08-27] MEDS: POTASSIUM CHLORIDE CRTAB 20 MEQ TABCR PO SCH (07:59)
[2023-08-27] MEDS: FUROSEMIDE 40 MG/4 ML VIAL IV ONE (08:00)
[2023-08-27] MEDS: FUROSEMIDE 40 MG/4 ML VIAL IV SCH (08:00)
--- NOTE | 2023-08-27 11:19 | Discharge Summary ---
Date of Service August 27, 2023 Admission HPI Per Admitting Provider 63-year-old male with past med history significant for hypothyroidism, hypertrophic cardiomyopathy, moderate mitral regurgitation, persistent atrial fibrillation, left atrial thrombus, chronic hepatitis C presents with chest pain and shortness of breath. Patient states since today afternoon 2 PM he was feeling having some chest discomfort and shortness of breath on and off. Was feeling very anxious. Feeling like passing out. [place] like he was in A-fib which prompted him to come to the ER. Patient states he was not shocked in the past because of blood clot seemed to had atrial thrombus . Currently symptoms improved. Resting comfortably. Denies any headache. No blurred vision. No runny nose or sore throat. No cough. No difficulty swallowing. No nausea. No abdominal pain. Normal bowel and bladder movements. Hemodynamics are okay. Past medical history. As mentioned above Past surgical history. Colonoscopy through stoma with biopsy. Social history. . Smokes 0.3 packs a day for 20 years. Seems current no alcohol use. Seems former heavy drinker. Smokes marijuana as per [facility] Family history. Mother had cancer. Admission Exam Per Admitting Provider General- Not in distress Head- atraumatic Eyes- PERRL. ENT- oropharynx clear Neck- supple, no JVD. Lungs- clear to auscultation no wheezing or crackles. Heart- regular rhythm; no murmur, no gallop. Abdomen- normal bowel sounds, soft, nontender, no distension. Extremities- no pretibial edema, no erythema seen Neuro- alert, oriented PERRL, no facial palsy; no dysarthria; moves extremities. Principal Diagnosis Acute on chronic diastolic heart failure Supratherapeutic INR Chest pain, ACS ruled out Discharge Exam General- Not in distress Head- atraumatic Eyes- PERRL. ENT- oropharynx clear Neck- supple, no JVD. Lungs- clear to auscultation no wheezing or crackles. Heart-irregular rhythm; no murmur, no gallop. Abdomen- normal bowel sounds, soft, nontender, no distension. Extremities- no pretibial edema, no erythema seen Neuro- alert, oriented PERRL, no facial palsy; no dysarthria; moves extremities. Discharge Data Allergies Allergy/AdvReac Type Severity Reaction Status Date / Time No Known Allergies Allergy Verified 08/26/23 00:28 Consultations 04/25/24 21:42 ED Decision to Admit Stat 08/26/23 08:00 Consult Cardiology Routine Hospital Course (1) Chest pain: Acute on chronic diastolic heart failure Persistent A-fib Supratherapeutic INR Chest pain, ACS ruled out 63-year-old male with past med significant for hypothyroidism, hypertrophic cardiomyopathy, moderate mitral regurgitation, persistent atrial fibrillation, left atrial thrombus, chronic hepatitis C presents with chest pain and shortness of breath. Chest x-ray on admission showed pulmonary edema. BNP was elevated to 600s. EKG on admission showed atrial fibrillation; nonspecific ST and T wave changes. High sensitive troponin was 25; flat trend. Patient was admitted to telemetry floor; cardiology was consulted for comanageme nt Patient underwent diuresis with IV Lasix 40 mg once a day Lisinopril was increased to 40 mg once a day At discharge, he was placed on 20 mg of Lasix every day. Patient's INR trended down during the hospitalization. Patient discharged home with instructions to follow-up with PCP, anticoagulation clinic and cardiology. Please note the above document was generated using voice recognition software. It may contain grammatical, syntax or spelling errors. Any formal questions or concerns about the content, text or information contained within the body of this dictation should be directly addressed to the provider for clarification Total Time Total Time Spent Total Time Spent (In Minutes): 45 Total Time Includes: Examination of the Patient, Discharge Planning, Medication Reconciliation, Communication With Other Providers and Other Discharge Plan Discharge Items Patient Disposition: Home - Self-Care Reason For Visit: CHEST PAIN,CHF? Discharge Diagnosis: (1) Apical variant hypertrophic cardiomyopathy: (2) Atrial flutter: (3) Supratherapeutic INR: (4) Hypertension Condition on Discharge: Good Activity: Resume your previous activity Non-emergency contact: Primary Care Provider Call non-emergency contact if: you have any medication questions and your symptoms worsen Follow-up/Referrals: Chan Light MD [Primary Care Provider] - Diet: Regular Addtl Attending Provider Instructions: You were admitted to the hospital due to chest pain. He underwent cardiac evaluation. The recommended following medication adjustment: 1) Lisinopril dose has been increased from 20 mg once a day to 40 mg once a day. Take 2 pills of 20 mg once a day. 2) Lasix 20 mg once a day has been added as a diuretic to help with the congestion. Please take it in the morning. Please follow-up with anticoagulation clinic on Tuesday regarding dosing of Coumadin. An appointment with your primary care doctor will be set up for sometime next week. Pending Studies at Discharge: No Stand-Alone Forms: My [facility], Smoking Cessation Medications and DC Order Prescriptions: New furosemide [Lasix] 20 mg tablet 20 mg PO DAILY Qty: 30 0RF Continued metoprolol succinate 50 mg tablet extended release 24 hr 50 mg PO QAM amlodipine 5 mg tablet 5 mg PO QAM warfarin 5 mg tablet 5 mg PO QAM aspirin 81 mg tablet,chewable 81 mg PO QAM potassium chloride 10 mEq Capsule, Extended Release 10 meq PO QAM Patient Comments: states on 11/05/21 he is currently not taking med levothyroxine 88 mcg tablet 88 mcg PO DAILYBB Changed lisinopril 20 mg tablet 40 mg PO DAILY Qty: 60 0RF Discharge Orders: Discharge Order (Routine); Ordered 08/27/23 Ordered By: Jersey Martinez Admission Data Admit Date/Time: 08/26/23 00:11 Attending Provider: Jersey Martinez Admit Provider: Bryan Bajwa Primary Care Provider: Chan Ligth Other Providers: Bryan Bajwa; Ander Barrios
--- NOTE | 2023-08-27 11:59 | Electrocardiogram Report ---
Test Reason : Blood Pressure : / mmHG Vent. Rate : 072 BPM Atrial Rate : 357 BPM P-R Int : 000 ms QRS Dur : 088 ms QT Int : 416 ms P-R-T Axes : 000 -01 104 degrees QTc Int : 455 ms Atrial fibrillation Voltage criteria for left ventricular hypertrophy Abnormal ECG When compared with ECG of 26-AUG-2023 08:27, (unconfirmed) Nonspecific T wave abnormality no longer evident in Inferior leads Confirmed by Zachary Yeager ([id number]) on 08/27/2023 11:59:36 AM Referred By: REFERRED SELF Confirmed By:Zachary Yeager
== END 2023-08-27 13:43 | disposition home or self-care (01) | DRG 291 ==
LOC: ED 19:41 → EDINP 08-26 00:11 → SUATTDRO 08-26 00:11 → 2E 08-26 02:41
DX: I34.0 Nonrheumatic mitral (valve) insufficiency; Z79.01 Long term (current) use of anticoagulants; E03.9 Hypothyroidism, unspecified; F17.210 Nicotine dependence, cigarettes, uncomplicated; Z79.82 Long term (current) use of aspirin; Z79.899 Other long term (current) drug therapy; I48.92 Unspecified atrial flutter; I48.19 Other persistent atrial fibrillation; I42.2 Other hypertrophic cardiomyopathy; Z79.890 Hormone replacement therapy; I50.33 Acute on chronic diastolic (congestive) heart failure; I27.22 Pulmonary hypertension due to left heart disease; Z91.148 Patient's other noncompliance with medication regimen for other reason; B18.2 Chronic viral hepatitis C; R79.1 Abnormal coagulation profile; I11.0 Hypertensive heart disease with heart failure

== ENCOUNTER 2024-10-07 03:07 | Observation (INO) ==
--- NOTE | 2024-10-07 03:51 | Emergency Department Note ---
History of Present Illness General Chief complaint: Cardiac Assessment Stated complaint: TROUBLE BREATHING Time Seen by Provider: 10/07/24 03:43 History of Present Illness This 64-year-old male with a history of a flutter and A-fib who follows with cardiology has appointment on Tuesday down in [place] presents ER for feeling anxious and short of breath. He states he feels much better now. He is worried he was in rapid A-fib and came in. Patient denies chest pain, fever, chills, cough, congestion, leg pain or swelling. No other concerns per patient. Patient states he would like to go home tonight. Home Medications Medication Instructions Recorded Confirmed Type amlodipine 5 mg tablet 5 mg PO QAM 06/11/18 08/26/23 History aspirin 81 mg chewable tablet 81 mg PO QAM 06/11/18 08/26/23 History metoprolol succinate 50 mg 50 mg PO QAM 06/11/18 08/26/23 History tablet,extended release 24 hr warfarin 5 mg tablet 5 mg PO QAM 06/11/18 08/26/23 History potassium chloride 10 mEq 10 meq PO QAM 10/31/18 08/26/23 History capsule,extended release levothyroxine 88 mcg tablet 88 mcg PO DAILYBB 08/26/23 08/26/23 History furosemide 20 mg tablet (Lasix) 20 mg PO DAILY #30 tabs 08/27/23 Rx lisinopril 20 mg tablet 40 mg (2 x 20 mg) PO DAILY #60 tabs 08/27/23 Rx Allergies Allergy/AdvReac Type Severity Reaction Status Date / Time No Known Allergies Allergy Verified 08/26/23 00:28 Past Med/Surg History Problem List (Updated 09/27/23 @ 00:07 by Background Daemon) Elevated troponin (Acute) Hypokalemia (Acute) Atrial fibrillation (Acute) Apical variant hypertrophic cardiomyopathy Chest pain (Acute) Supratherapeutic INR (Acute) Atrial flutter (Acute) Heart failure (Acute) Hypertensive heart disease Encounter for pre-operative examination Hepatitis C Treated in 2018 Hypertension Labile Paroxysmal atrial fibrillation Reason for warfarin Left atrial thrombus found on ANGE on 08/20/2021 History of cardioversion 2016, 2018, 2019 (a fib) History of transesophageal echocardiography (ANGE) last 11/11/21 @ [facility] Medical History Pulmonary hypertension Secondary to left heart issues per cardio records History of hypertrophic cardiomyopathy Hx Apical hypertrophic cardiomyopathy with diastolic LV dysfunction Hypothyroidism Left atrial thrombus found on ANGE on 08/20/2021 Paroxysmal atrial fibrillation Reason for warfarin Hypertension Labile Hepatitis C Treated in 2018 Surgical History History of colonoscopy History of transesophageal echocardiography (ANGE) last 11/11/21 @ [facility] History of cardioversion 2016, 2018, 2019 (a fib) Family History Brother FHx: stroke Other No family history of adverse response to anesthesia Social History Smoking Status: Never smoker Tobacco Type: Cigarettes Cigarettes Per Day: 1 pack per week; Second Hand Exposure: No; Do You Dip or Chew Tobacco: No; Hx Alcohol Use: No Hx Substance Use: Yes Last Used Substance Other:: 06/11/22 Preferred Language: Mohawk Communication Ability: Effective Registered Vascular Technologist (Rvt) Required: Yes Beliefs That Will Affect Care: None Current Living Situation: Spouse Feels Safe at Home: Yes Assistive Devices: None Review of Systems A total of 10 systems reviewed and were otherwise negative Physical Exam Vital Signs Vital Signs - 24 hr 10/07/24 03:16 10/07/24 03:33 10/07/24 03:40 Temperature 36.7 C Temperature Source Temporal Artery Scan Pulse Rate 67 61 Pulse Rate [Apical] 73 Respiratory Rate 20 16 Respiratory Effort / Characteristics Non-Labored Spontaneous Respiratory Depth Normal Blood Pressure 192/113 H Blood Pressure [Left Arm] 173/123 H Blood Pressure Mean 139 Blood Pressure Mean [Left Arm] 139 Pulse Oximetry 96 95 Oxygen Delivery Method Room Air Room Air Sepsis Recent Fever Within 48 Hours No Sepsis New/Unexplained Change in Mental Status No Sepsis Action Taken by Nursing No Action Required 10/07/24 03:41 10/07/24 04:00 10/07/24 04:30 Temperature Temperature Source Pulse Rate Pulse Rate [Apical] 71 66 Respiratory Rate 14 16 Respiratory Effort / Characteristics Respiratory Depth Blood Pressure Blood Pressure [Left Arm] 180/132 H 185/177 H Blood Pressure Mean Blood Pressure Mean [Left Arm] 148 179 Pulse Oximetry 95 97 99 Oxygen Delivery Method Room Air Room Air Room Air Sepsis Recent Fever Within 48 Hours Sepsis New/Unexplained Change in Mental Status Sepsis Action Taken by Nursing VITALS: Vitals are noted on the nurse's note and reviewed by myself. Vital signs stable. GENERAL: Pleasant gentleman, in no acute distress, nondiaphoretic, well- developed well-nourished. SKIN: Capillary reflex less than 2 seconds. HEENT: Normocephalic. PERRLA. EOMI. Nares patent. Mucous membranes moist. Neck is supple without nuchal rigidity. HEART: Irregularly irregular LUNGS: Clear to auscultation bilaterally without wheezes, rales or rhonchi. No retractions or accessory muscle use. ABDOMEN: Positive bowel sounds x 4. Normal tympanic percussion. Soft, nontender, without masses or organomegaly. Harper sign negative. No guarding or rebound tenderness. no CVA tenderness MUSCULOSKELETAL: No gross musculoskeletal defects. NEURO: Patient was alert and oriented to person place and time. No focal neurological deficits. Medical Decision Making Medical Records Attestation: I reviewed the patient's medical records. Home Medications Current Medication List: was personally reviewed by me Laboratory Data Attestation: I reviewed the patient's lab results. 10/07/24 03:34 10/07/24 03:34 Lab Results 10/07/24 Range/Units 03:34 WBC 5.88 (4.8-10.8) K/ul RBC 3.72 L (4.70-6.10) M/uL Hgb 12.2 L (14.0-18.0) g/dl Hct 35.7 L (42.0-52.0) % MCV 96.0 (80.0-100.0) fL MCH 32.8 (25.0-34.0) pg MCHC 34.2 (32.0-36.0) g/dL RDW Std Deviation 49.8 H (36.4-46.3) fL RDW Coeff of Gonzales 14.2 (11.5-14.5) % Plt Count 154 (130-400) K/uL MPV 11.3 (9.4-12.4) fL Immature Gran % (Auto) 0.3 % Neut % (Auto) 66.6 % Lymph % (Auto) 22.4 % [place] % (Auto) 9.2 % Eos % (Auto) 1.2 % Baso % (Auto) 0.3 % Neut # (Auto) 3.91 (1.40-6.50) K/uL Lymph # (Auto) 1.32 (1.20-3.40) K/uL [place] # (Auto) 0.54 (0.11-0.59) K/uL Eos # (Auto) 0.07 (0.00-0.50) K/uL Baso # (Auto) 0.02 (0.00-0.20) K/uL Immature Gran # (Auto) 0.02 (0.01-0.20) K/uL PT 20.4 H (9.0-12.0) Seconds INR 2.0 H (0.9-1.1) APTT 36 H (21-31) Seconds PTT Ratio 1.3 Sodium 137 (136-145) mmol/L Potassium 3.0 L (3.5-5.1) mmol/L Chloride 104 (98-107) mmol/L Carbon Dioxide 28 (21-32) mmol/L Anion Gap 5 (3-11) BUN 12 (6-23) mg/dl Creatinine 1.12 (0.6-1.4) mg/dl Est Cr Clr Drug Dosing 68.8 ml/min eGFR 72.90 BUN/Creatinine Ratio 10.7 (10-20) Glucose 106 H (70-99(Fasting)) mg/dl Calcium 8.9 (8.6-10.3) mg/dl Magnesium 1.7 (1.7-2.4) mg/dl Total Bilirubin 1.8 H (0.2-1.0) mg/dl AST 17 (13-39) U/L ALT 13 (7-52) U/L Alkaline Phosphatase 109 H (34-104) U/L Troponin I High Sens 36.5 H (0-20) pg/ml Total Protein 8.3 (6.0-8.3) gm/dl Albumin 3.7 (3.4-5.0) gm/dl Globulin 4.6 H (2.5-4.0) gm/dl Albumin/Globulin Ratio 0.8 L (0.9-2) Imaging Data Attestation: I personally reviewed and interpreted this imaging study as follows: MDM Narrative Prior records/ancillary studies reviewed. Triage Nursing notes reviewed. Additional history obtained from the nursing. The patient's history was concerning for feeling anxious and short of breath Differential diagnosis: Etiologies such as anxiety, infections, reactive airway disease, pneumonia, pneumothorax, COPD, CHF, cardiac ischemia, pulmonary embolism, musculoskeletal, gastrointestinal, as well as others were entertained. Physical examination: As above. ER treatment provided: An order was placed for continuous cardiac monitoring. The monitor shows a rate of 60-100 with a A-fib rhythm per my interpretation. Patient declined medication Potassium was replaced On reassessment the patient felt better. Diagnostic interpretation by me: The electrocardiogram was ordered for SOB. ECG: Irregularly irregular with rate of 71. T wave versions in V5 and V6 similar to prior. Impression A-fib rate controlled independently interpreted by myself The labs Independently Interpreted by myself revealed hypokalemia this was replaced orally Troponin was elevated and repeat was ordered Imaging studies: Chest x-ray was reviewed and read by radiology. HEART SCORE: Hx: high/mod/low suspicion: 0 ECG: ST depression/nonspecific changes/normal: 0 Age: Greater than 65/45-64/less than 45: 2 Risk factors: (Hypertension, hyperlipidemia, diabetes, coronary disease, tobacco use, cocaine use): 2 Troponin: Greater than 2 times normal limits/1-2 times normal limits/normal: 1 Total: 5 Consultation. Medicine was consulted and the case was discussed. Patient will be evaluated for possible admission. This appears to be consistent with feeling anxious with known A-fib. Troponin was slightly elevated. Coumadin was therapeutic. Unlikely PE. Symptoms were short-lived. Medicine was consulted and the case was discussed. Patient will be evaluated for admission. By the evaluation outlined above emergent etiologies such as pulmonary embolism, reactive airway disease, pneumonia, pneumothorax, musculoskeletal, serious bacterial infections, as well as others were deemed relatively unlikely. The pt informed about the findings as listed above. All questions were answered and pleased with the treatment. The chart was completed utilizing [employer] Speech voice recognition software. Grammatical errors, random word insertions, pronoun errors, and incomplete sentences are an occassional consequence of this system due to software limitations, ambient noise, and hardware issues. Any formal questions or concerns about the content, text, or information contained within the body of this dictation should be directly addressed to the physician assistant operations manager for clarification. Impression & Plan Atrial fibrillation, Hypokalemia, Elevated troponin Discharge Plan Visit Data Chief Complaint: Cardiac Assessment Stated Complaint: TROUBLE BREATHING ED Provider: Laura Yung ED Midlevel Provider: Ree Santos Discharge Problem: Atrial fibrillation, Hypokalemia, Elevated troponin Patient Disposition: Being Evaluated by Hospitalist Condition: Good Discharge Instructions Activity Restrictions/Additional Instructions: Your potassium was slightly low. Recheck this with the family doctor. Acetaminophen(Tylenol) may be used for fever or pain. Use 1000mg every six hours as needed. Avoid using more than 3000mg in a 24 hour period. Rest and drink plenty of fluids as tolerated. Continue current medications. Avoid strenuous activities and anything that worsens your symptoms. Resume normal activities once your symptoms resolve. Return to the ER immediately for worsening or persistent breathing concerns, abdominal pain, vomiting, fevers, chest pains, difficulty breathing, worsening of your condition, or as needed. Follow up with your primary physician in 2-3 days for a recheck of your current condition. Forms Stand Alone Forms: Important Visit Information Prescriptions Prescriptions: No Action metoprolol succinate 50 mg tablet extended release 24 hr 50 mg PO QAM amlodipine 5 mg tablet 5 mg PO QAM warfarin 5 mg tablet 5 mg PO QAM aspirin 81 mg tablet,chewable 81 mg PO QAM potassium chloride 10 mEq Capsule, Extended Release 10 meq PO QAM Patient Comments: states on 11/05/21 he is currently not taking med levothyroxine 88 mcg tablet 88 mcg PO DAILYBB furosemide [Lasix] 20 mg tablet 20 mg PO DAILY Qty: 30 0RF lisinopril 20 mg tablet 40 mg PO DAILY Qty: 60 0RF Referrals Referrals: Chan Light MD [Primary Care Provider] - Discharge Problem: Atrial fibrillation Qualifiers: Atrial fibrillation type: unspecified Qualified Code(s): I48.91 - Unspecified atrial fibrillation
[2024-10-07 03:52] LABS: Basophils # (auto) 0.02 K/uL (0.00-0.20); Basophils % (auto) 0.3 %; Eosinophils # (auto) 0.07 K/uL (0.00-0.50); Eosinophils % (auto) 1.2 %; Hematocrit (blood only) 35.7 % (42.0-52.0); Hemoglobin 12.2 g/dl (14.0-18.0); Immature Granulocytes # (auto) 0.02 K/uL (0.01-0.20); Immature Granulocytes % (auto) 0.3 %; Lymphocytes # (auto) 1.32 K/uL (1.20-3.40); Lymphocytes % (auto) 22.4 %; Mean Corpuscular Hemoglobin 32.8 pg (25.0-34.0); Mean Corpuscular Hgb Conc 34.2 g/dL (32.0-36.0); Mean Platelet Volume 11.3 fL (9.4-12.4); Monocytes # (auto) 0.54 K/uL (0.11-0.59); Monocytes % (auto) 9.2 %; Neutrophils # (auto) 3.91 K/uL (1.40-6.50); Neutrophils % (auto) 66.6 %; Platelet Count 154 K/uL (130-400); RDW Coefficient of Variation 14.2 % (11.5-14.5); RDW Standard Deviation 49.8 fL (36.4-46.3); Red Blood Count 3.72 M/uL (4.70-6.10); White Blood Count 5.88 K/ul (4.8-10.8)
[2024-10-07 04:20] LABS: Albumin Globulin Ratio 0.8 (0.9-2); Albumin Level 3.7 gm/dl (3.4-5.0); BUN Creatinine Ratio 10.7 (10-20); Bilirubin,Total 1.8 mg/dl (0.2-1.0); Calcium 8.9 mg/dl (8.6-10.3); Creatinine Clr Calc Pharmacy 68.8 ml/min; Globulin 4.6 gm/dl (2.5-4.0); Magnesium 1.7 mg/dl (1.7-2.4); Partial Thromboplastin Ratio 1.3; Partial Thromboplastin Time 36 Seconds (21-31); Prothrombin Time 20.4 Seconds (9.0-12.0); Total Protein 8.3 gm/dl (6.0-8.3)
[2024-10-07 04:26] LABS: Troponin I High Sensitivity 36.5 pg/ml (0-20)
[2024-10-07] MEDS: POTASSIUM CHLORIDE CRTAB 20 MEQ TABCR PO STA ×2 (04:44→12:32)
[2024-10-07] MEDS: MAGNESIUM SULFATE / D5W 1 GM/100 ML BAG IV ONE (04:45)
[2024-10-07] MEDS: POTASSIUM CHLORIDE / WTR 10 MEQ/100 ML PLCT IV SCH (04:45)
--- NOTE | 2024-10-07 04:55 | XRay Report ---
EXAM: XR chest 1V not portable CLINICAL HISTORY: Chest pain, nonspecific. TECHNIQUE: An X-ray image of the chest is obtained in AP projection. 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 FINDINGS: Pulmonary Parenchyma: Bilateral increased bronchovascular markings. Bilateral interstitial and air space opacities are noted and more evident at the right lower zone. No pulmonary nodules are identified. No evidence of pleural effusion or pleural thickening. Heart and Mediastinum: Heart size and shape are normal. No mediastinal widening or masses. No hilar or mediastinal lymphadenopathy. Bony Thorax: Stable mild thoracolumbar scoliosis. Bony thorax appears intact without fractures or deformities. Soft Tissues: Soft tissues overlying the chest wall are unremarkable. IMPRESSION: - Newly developed bilateral interstitial and air space opacities are noted and more evident at the right lower zone. Pulmonary infection/inflammation is suggested and needs clinical and laboratory correlation. Electronically signed by Tom Montelongo 10-07-2024 04:55 AM
--- NOTE | 2024-10-07 05:47 | History & Physical Report ---
Date of Service October 07, 2024 Assessment & Plan (1) SOB (shortness of breath): Plan: 64-year-old male with past medical history significant for hypothyroidism, hypertrophic cardiomyopathy, moderate mitral regurgitation, persistent atrial fibrillation, history of left atrial thrombus, hypertension chronic hepatitis C, presents with anxiety and shortness of breath. Patient says lately getting panic attacks but last night he was very anxious and panicky and was feeling short of breath which prompted him to come to the ER. Currently in the ER he says is feeling better. Currently no anxiety. Denies any chest pain. Denies any headache. No dizziness. No runny nose or sore throat. No cough. No fever. No nausea or abdominal pain. Normal bowel and bladder movements. Currently resting comfortably. Blood pressures running high. Patient states checks blood pressure once a week and usually slightly above normal as per patient. Shortness of breath Anxiety Elevated troponin Initial troponin 36. Repeat troponin pending Currently asymptomatic Will follow serial enzymes and echo Monitor on telemetry Cardiac consult in a.m. Possible pneumonia Follow CT chest Empiric antibiotics Hypertensive urgency Continue home lisinopril and metoprolol succinate Labetalol as needed Cardiology consulted Hypertrophic cardiomyopathy Moderate mitral regurgitation Monitor for volume overload Follows with cardiology Atrial fibrillation On metoprolol succinate and warfarin INR 2 Will monitor Hypokalemia Will replace Continue home potassium supplements Follow labs Hepatitis C On Epclusa Follows with hepatology DVT prophylaxis On Coumadin Follow PT/INR Disposition Telemetry Full code. History of Present Illness Chief Complaint: Anxiety and shortness of breath Primary Care Provider: Chan Light MD 64-year-old male with past medical history significant for hypothyroidism, hypertrophic cardiomyopathy, moderate mitral regurgitation, persistent atrial fibrillation, history of left atrial thrombus, hypertension chronic hepatitis C, presents with anxiety and shortness of breath. Patient says lately getting panic attacks but last night he was very anxious and panicky and was feeling short of breath which prompted him to come to the ER. Currently in the ER he says is feeling better. Currently no anxiety. Denies any chest pain. Denies any headache. No dizziness. No runny nose or sore throat. No cough. No fever. No nausea or abdominal pain. Normal bowel and bladder movements. Currently resting comfortably. Blood pressures running high. Patient states checks blood pressure once a week and usually slightly above normal as per patient. Past medical history . As mentioned above. Past surgical history. Colonoscopy. Social history. . Smokes 0.3 pack a day for 20 years. No alcohol use. Uses marijuana as per [facility] Family history. Mother had cancer. Allergies Allergy/AdvReac Type Severity Reaction Status Date / Time No Known Allergies Allergy Verified 08/26/23 00:28 Home Medications Medication Instructions Recorded Confirmed Type levothyroxine 88 mcg tablet 88 mcg PO DAILY 10/07/24 10/07/24 History lisinopril 20 mg tablet 40 mg PO DAILY 10/07/24 10/07/24 History lurasidone 40 mg tablet 40 mg PO HS 10/07/24 10/07/24 History metoprolol succinate 100 mg 100 mg PO BID 10/07/24 10/07/24 History tablet,extended release 24 hr potassium chloride 10 mEq 10 meq PO DAILY 10/07/24 10/07/24 History tablet,extended release(part/cryst) sofosbuvir 400 mg-velpatasvir 100 1 tab PO DAILY 10/07/24 10/07/24 History mg tablet (Epclusa) tamsulosin 0.4 mg capsule 0.4 mg PO DAILY 10/07/24 10/07/24 History warfarin 5 mg tablet 5 mg PO UD 10/07/24 10/07/24 History Past Med/Surg History Problem List (Updated 09/27/23 @ 00:07 by Favio Wren) SOB (shortness of breath) Elevated troponin (Acute) Hypokalemia (Acute) Atrial fibrillation (Acute) Apical variant hypertrophic cardiomyopathy Chest pain (Acute) Supratherapeutic INR (Acute) Atrial flutter (Acute) Heart failure (Acute) Hypertensive heart disease Encounter for pre-operative examination Hepatitis C Treated in 2018 Hypertension Labile Paroxysmal atrial fibrillation Reason for warfarin Left atrial thrombus found on ANGE on 08/20/2021 History of cardioversion 2016, 2018, 2019 (a fib) History of transesophageal echocardiography (ANGE) last 11/11/21 @ [facility] Medical History Pulmonary hypertension Secondary to left heart issues per cardio records History of hypertrophic cardiomyopathy Hx Apical hypertrophic cardiomyopathy with diastolic LV dysfunction Hypothyroidism Left atrial thrombus found on ANGE on 08/20/2021 Paroxysmal atrial fibrillation Reason for warfarin Hypertension Labile Hepatitis C Treated in 2018 Surgical History History of colonoscopy History of transesophageal echocardiography (ANGE) last 11/11/21 @ [facility] History of cardioversion 2017, 2018, 2019 (a fib) Family History Brother FHx: stroke Other No family history of adverse response to anesthesia Social History Smoking Status: Current every day smoker Tobacco Type: Cigarettes Cigarettes Per Day: 1 pk/week; Second Hand Exposure: No; Do You Dip or Chew Tobacco: No; Tobacco Cessation Education Requested by Patient: Yes Hx Alcohol Use: No Hx Substance Use: Yes Last Used Substance Other:: 06/11/22 Preferred Language: Micronesian Communication Ability: Effective Fire Alarm Dispatcher Required: No Beliefs That Will Affect Care: None Current Living Situation: Spouse Other Information That Helps Us Care for You: No Feels Safe at Home: Yes Safety Concerns: Feels Safe At This Time Assistive Devices: None Review of Systems Review of Systems: All systems reviewed & are unremarkable except as noted in HPI & below Physical Exam Physical Exam: General- Not in distress. Head- atraumatic Eyes- PERRL. ENT- oropharynx clear Neck- supple, no JVD. Lungs- clear to auscultation no wheezing or crackles. Heart- regular rhythm; no murmur, no gallop. Abdomen- normal bowel sounds, soft, nontender, no distension Extremities- no pretibial edema, no erythema seen Neuro- alert, oriented PERRL, no facial palsy; no dysarthria; moves extremities Results & Data Results & Data Vital Signs (Past 12 Hours) Vital Signs Temp Pulse Pulse Resp BP BP Pulse Ox 10/07/24 05:00 67 16 180/124 H 95 10/07/24 04:30 66 16 185/177 H 99 10/07/24 04:00 71 14 180/132 H 97 10/07/24 03:41 95 10/07/24 03:40 61 10/07/24 03:33 73 16 173/123 H 95 10/07/24 03:16 36.7 C 67 20 192/113 H 96 O2 Del Method 10/07/24 05:00 Room Air 10/07/24 04:30 Room Air 10/07/24 04:00 Room Air 10/07/24 03:41 Room Air 10/07/24 03:40 10/07/24 03:33 Room Air 10/07/24 03:16 Room Air Diagnostic Findings Laboratory Results WBC 5.88 K/ul (4.8-10.8) 10/07/24 03:34 RBC 3.72 M/uL (4.70-6.10) L 10/07/24 03:34 Hgb 12.2 g/dl (14.0-18.0) L 10/07/24 03:34 Hct 35.7 % (42.0-52.0) L 10/07/24 03:34 MCV 96.0 fL (80.0-100.0) 10/07/24 03:34 MCH 32.8 pg (25.0-34.0) 10/07/24 03:34 MCHC 34.2 g/dL (32.0-36.0) 10/07/24 03:34 RDW Std Deviation 49.8 fL (36.4-46.3) H 10/07/24 03:34 RDW Coeff of Gonzales 14.2 % (11.5-14.5) 10/07/24 03:34 Plt Count 154 K/uL (130-400) 10/07/24 03:34 MPV 11.3 fL (9.4-12.4) 10/07/24 03:34 Immature Gran % (Auto) 0.3 % 10/07/24 03:34 Neut % (Auto) 66.6 % 10/07/24 03:34 Lymph % (Auto) 22.4 % 10/07/24 03:34 [place] % (Auto) 9.2 % 10/07/24 03:34 Eos % (Auto) 1.2 % 10/07/24 03:34 Baso % (Auto) 0.3 % 10/07/24 03:34 Neut # (Auto) 3.91 K/uL (1.40-6.50) 10/07/24 03:34 Lymph # (Auto) 1.32 K/uL (1.20-3.40) 10/07/24 03:34 Ev[place]eline # (Auto) 0.54 K/uL (0.11-0.59) 10/07/24 03:34 Eos # (Auto) 0.07 K/uL (0.00-0.50) 10/07/24 03:34 Baso # (Auto) 0.02 K/uL (0.00-0.20) 10/07/24 03:34 Immature Gran # (Auto) 0.02 K/uL (0.01-0.20) 10/07/24 03:34 PT 20.4 Seconds (9.0-12.0) H 10/07/24 03:34 INR 2.0 (0.9-1.1) H 10/07/24 03:34 APTT 36 Seconds (21-31) H 10/07/24 03:34 PTT Ratio 1.3 10/07/24 03:34 Sodium 137 mmol/L (136-145) 10/07/24 03:34 Potassium 3.0 mmol/L (3.5-5.1) L 10/07/24 03:34 Chloride 104 mmol/L (98-107) 10/07/24 03:34 Carbon Dioxide 28 mmol/L (21-32) 10/07/24 03:34 Anion Gap 5 (3-11) 10/07/24 03:34 BUN 12 mg/dl (6-23) 10/07/24 03:34 Creatinine 1.12 mg/dl (0.6-1.4) 10/07/24 03:34 Est Cr Clr Drug Dosing 68.8 ml/min 10/07/24 03:34 eGFR 72.90 10/07/24 03:34 BUN/Creatinine Ratio 10.7 (10-20) 10/07/24 03:34 Glucose 106 mg/dl (70-99(Fasting)) H 10/07/24 03:34 Calcium 8.9 mg/dl (8.6-10.3) 10/07/24 03:34 Magnesium 1.7 mg/dl (1.7-2.4) 10/07/24 03:34 Total Bilirubin 1.8 mg/dl (0.2-1.0) H 10/07/24 03:34 AST 17 U/L (13-39) 10/07/24 03:34 ALT 13 U/L (7-52) 10/07/24 03:34 Alkaline Phosphatase 109 U/L (34-104) H 10/07/24 03:34 Troponin I High Sens 36.5 pg/ml (0-20) H 10/07/24 03:34 Total Protein 8.3 gm/dl (6.0-8.3) 10/07/24 03:34 Albumin 3.7 gm/dl (3.4-5.0) 10/07/24 03:34 Globulin 4.6 gm/dl (2.5-4.0) H 10/07/24 03:34 Albumin/Globulin Ratio 0.8 (0.9-2) L 10/07/24 03:34 Impressions Chest X-Ray 10/07/24 03:41 EXAM: XR chest 1V not portable CLINICAL HISTORY: Chest pain, nonspecific. TECHNIQUE: An X-ray image of the chest is obtained in AP projection. 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 FINDINGS: Pulmonary Parenchyma: Bilateral increased bronchovascular markings. Bilateral interstitial and air space opacities are noted and more evident at the right lower zone. No pulmonary nodules are identified. No evidence of pleural effusion or pleural thickening. Heart and Mediastinum: Heart size and shape are normal. No mediastinal widening or masses. No hilar or mediastinal lymphadenopathy. Bony Thorax: Stable mild thoracolumbar scoliosis. Bony thorax appears intact without fractures or deformities. Soft Tissues: Soft tissues overlying the chest wall are unremarkable. IMPRESSION: - Newly developed bilateral interstitial and air space opacities are noted and more evident at the right lower zone. Pulmonary infection/inflammation is suggested and needs clinical and laboratory correlation. Electronically signed by Tom Montelongo 10-07-2024 04:55 AM Code Status & VTE Plan VTE Prophylaxis Plan VTE Prophylaxis will be ordered: Yes
[2024-10-07] MEDS: OPTIRAY 320 125ml IV ONE (05:59)
[2024-10-07] MEDS: LABETALOL HCL IV 5 MG/ML 20ML IV STA (06:06)
[2024-10-07] MEDS: cefTRIAXone SODIUM 2,000 MG/50 ML BAG IV SCH (07:04)
[2024-10-07] MEDS: DOXYCYCLINE HYCLATE 100 MG in DEXTROSE 5% MINI-B 100 ML IV SCH (07:28)
--- NOTE | 2024-10-07 07:33 | CT Scan Report ---
EXAM: CT angio chest PE protocol CLINICAL HISTORY: PE TECHNIQUE: Contiguous axial images were obtained from the neck base through the upper abdomen following intravenous administration of iodinated contrast material. Angiographic images were processed, 3D MIP images were acquired for interpretation. If IV contrast material had not been administered, the likelihood of detecting abnormalities relevant to the patient's condition would have been substantially decreased. Coronal and sagittal 3-D MIPs were likewise performed and indicated to increase the sensitivity of detecting diffuse clinically relevant pathology. CT scan was performed according to ALARA (as low as reasonable achievable). COMPARISON: None. FINDINGS: Mild bilateral pleural effusion is seen. Adjoining dependent reticulations and ground glass opacities are seen in the lower lobes. Adequate contrast bolus without evidence of pulmonary embolism. The central airways are patent. The lungs are clear. No pleural effusion. There is dilatation of the pulmonary trunk and main pulmonary arteries. The heart and aorta are of normal size and configuration. No pericardial effusion is identified. There is appreciable coronary artery and aortic atherosclerotic calcifications. The thyroid is unremarkable. No mediastinal, hilar, or axillary lymphadenopathy is noted. No suspicious lytic or sclerotic osseous lesions are identified. IMPRESSION: 1. No evidence of pulmonary embolism. 2. Dilated pulmonary arteries - suggestive of pulmonary hypertension. 3. Mild bilateral pleural effusion. Electronically signed by Mateo Potter 10-07-2024 07:32 AM
[2024-10-07] MEDS ORDERED: NITROGLYCERIN SL 0.4 MG/TAB TAB SL PRN (08:37)
[2024-10-07] MEDS ORDERED: POLYETHYLENE (MIRALAX) 17 GM PACK PO PRN (08:37)
[2024-10-07 09:28] LABS: Basophils # (auto) 0.02 K/uL (0.00-0.20); Basophils % (auto) 0.4 %; Eosinophils # (auto) 0.02 K/uL (0.00-0.50); Eosinophils % (auto) 0.4 %; Hematocrit (blood only) 34.3 % (42.0-52.0); Hemoglobin 11.7 g/dl (14.0-18.0); Immature Granulocytes # (auto) 0.02 K/uL (0.01-0.20); Immature Granulocytes % (auto) 0.4 %; Lymphocytes # (auto) 0.82 K/uL (1.20-3.40); Lymphocytes % (auto) 14.4 %; Mean Corpuscular Hemoglobin 32.8 pg (25.0-34.0); Mean Corpuscular Hgb Conc 34.1 g/dL (32.0-36.0); Mean Corpuscular Volume 96.1 fL (80.0-100.0); Mean Platelet Volume 11.4 fL (9.4-12.4); Monocytes # (auto) 0.56 K/uL (0.11-0.59); Monocytes % (auto) 9.8 %; Neutrophils # (auto) 4.27 K/uL (1.40-6.50); Neutrophils % (auto) 74.6 %; Platelet Count 152 K/uL (130-400); RDW Standard Deviation 49.7 fL (36.4-46.3); Red Blood Count 3.57 M/uL (4.70-6.10); White Blood Count 5.71 K/ul (4.8-10.8)
[2024-10-07] MEDS: LABETALOL HCL IV 5 MG/ML 20ML IV PRN (09:32)
[2024-10-07] MEDS: LEVOTHYROXINE SODIUM 88 MCG TABLET PO SCH (09:35)
[2024-10-07] MEDS: METOPROLOL SUCC 50MG EXT REL TAB PO SCH (09:35)
[2024-10-07] MEDS: TAMSULOSIN HCL 0.4 MG CAP PO SCH (09:35)
[2024-10-07] MEDS: lisinopril 40 MG TAB PO SCH (09:36)
[2024-10-07] MEDS: POTASSIUM CHLORIDE 10 MEQ TABCR PO SCH (09:36)
[2024-10-07 09:49] LABS: BUN Creatinine Ratio 10.1 (10-20); Calcium 8.6 mg/dl (8.6-10.3); Creatinine Clr Calc Pharmacy 76.4 ml/min; Magnesium 1.9 mg/dl (1.7-2.4); Potassium 3.6 mmol/L (3.5-5.1)
[2024-10-07 09:54] LABS: Troponin I High Sensitivity 33.1 pg/ml (0-20)
--- NOTE | 2024-10-07 11:41 | Cardiology Consultation ---
<Statement entered by Hui Hwang DO - 10/07/24 13:34> I have reviewed the advanced practitioner's documentation and agree with the plan of care. I accept the responsibility for the associated risk. Pt seen in cardiology consultation due to hypertensive urgency with underlying apical HCM and MR and permanent AF/atypical flutter He reports breathing better; denies any CP he says he is urinating alot BP is still on the higher side Recommend starting spironolactone and chlorthalidone now Echo today relatively unchanged; EF still preserved; MR and pulmonary pressures slightly worse but this is probably related to his significantly elevated BP today continue high dose metoprolol and lisinopril continue coumadin will need to rescheduled out patient testing for his HCM that was scheduled for tomorrow Monitor overnight and if BP improves and stays stable can most likely go home tomorrow with cardiology f/u I discussed the case and my recommendations with the hospitalist over tiger text and he agreed with my plan Date of Consultation October 07, 2024 Assessment & Plan (1) Hypertensive urgency: (2) Elevated troponin: (3) Apical variant hypertrophic cardiomyopathy: (4) Persistent atrial fibrillation: (5) Diastolic dysfunction: (6) Mitral regurgitation: (7) Labile hypertension: (8) Pulmonary hypertension: (9) Thrombus of left atrial appendage: Plan Uncontrolled hypertension. Patient with longstanding hypertension and chronic hypokalemia despite chronic HARINI inhibitor therapy and supplemental potassium, without use of diuretic and without overt loss - Add spironolactone 25 mg/day starting now - Add chlorathalidone 25 mg/day starting now - Continue lisinopril 40 mg/day and metoprolol 100 mg twice a day Persistent atrial fibrillation. Rates acceptably controlled on current dose of metoprolol succinate. History of LA appendage thrombus x3 on ANGE, most recently in Jun 2022. Patient chronically prescribed Coumadin anticoagulation managed by the [facility] anticoagulation clinic Moderate to severe mitral insufficiency. Pulmonary hypertension secondary to left heart issues. See above. Elevated troponin. Likely secondary to the above. Apical hypertrophic cardiomyopathy with diastolic left ventricular dysfunction. Patient was [place] [facility] to exclude left ventricular outflow tract obstruction. This will need to be postponed. History of Present Illness Reason for Consultation: "SOB, elevated trop, elevated BP." Requesting Physician: Dr. Bryan Bajwa Attending Physician: Dr. Jersey Martinez MD History of Present Illness Patient is a 64-year-old male who presented to [facility] earlier today (Monday, October 07, 2024) with complaints of shortness of breath. Patient notes "I keep getting spells, anxiety, atrial fibrillation, dizziness, heart beating fast, bumping in the chest." Symptoms occur primarily when laying down, never with activity. Activities limited by dyspnea after approximately 50 feet. No pleuritic chest pain. No activity related chest pain. + Cough productive of phlegm. No orthopnea, PND, or peripheral edema. No syncope. No current fevers or chills. No hemoptysis, melena, hematochezia, or hematuria. Blood pressure on presentation was 192/113, blood pressures persistently markedly elevated with systolic ranging from 173-200, diastolic readings ranging from 113-177 High-sensitivity troponin mildly elevated and flat 36.5 -> 34.9 -> 33.1 pg/mL No EKG available for review in the patient's room, on the paper chart/binder, in the EMR, or in MUSE. EKG via ER provider documentation states irregularly irregular with rate of 71 bpm, T wave inversions in V5 and V6 similar to prior." CTA of the chest was negative for PE, revealing dilated pulmonary arteries and mild bilateral pleural effusions. No pericardial effusion identified. Coronary and aortic atherosclerotic calcifications observed. INR therapeutic at 2.0 Past Medical and Surgical History: Apical hypertrophic cardiomyopathy with diastolic left ventricular dysfunction, severe left atrial enlargement Persistent atrial fibrillation status post synchronized electrical cardioversion September 2017, October 2019, LA appendage thrombus x3 on ANGE, most recently in Jun 2022. Pulmonary hypertension secondary to left heart issues Moderate to severe mitral insufficiency Labile hypertension Hepatitis C Hypothyroidism Chronic tobacco use Family History: Mother with cancer. Father with CHF at 74. 7 siblings. 1 brother with an UT at 63. Social History: Smoker, 1 pack/week. Regular marijuana use. No significant alcohol. Originally from [place]. . 3 children. 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 Allergies Allergy/AdvReac Type Severity Reaction Status Date / Time No Known Allergies Allergy Verified 08/26/23 00:28 Home Medications Medication Instructions Recorded Confirmed Type levothyroxine 88 mcg tablet 88 mcg PO DAILY 10/07/24 10/07/24 History lisinopril 20 mg tablet 40 mg PO DAILY 10/07/24 10/07/24 History lurasidone 40 mg tablet 40 mg PO HS 10/07/24 10/07/24 History metoprolol succinate 100 mg 100 mg PO BID 10/07/24 10/07/24 History tablet,extended release 24 hr potassium chloride 10 mEq 10 meq PO DAILY 10/07/24 10/07/24 History tablet,extended release(part/cryst) sofosbuvir 400 mg-velpatasvir 100 1 tab PO DAILY 10/07/24 10/07/24 History mg tablet (Epclusa) tamsulosin 0.4 mg capsule 0.4 mg PO DAILY 10/07/24 10/07/24 History warfarin 5 mg tablet 5 mg PO UD 10/07/24 10/07/24 History Patient History Medical History Pulmonary hypertension Secondary to left heart issues per cardio records History of hypertrophic cardiomyopathy Hx Apical hypertrophic cardiomyopathy with diastolic LV dysfunction Hypothyroidism Surgical History History of colonoscopy Family History Brother FHx: stroke Other No family history of adverse response to anesthesia Social History Smoking Status: Current every day smoker Tobacco Type: Cigarettes Cigarettes Per Day: 1 pk/week; Second Hand Exposure: No; Do You Dip or Chew Tobacco: No; Tobacco Cessation Education Requested by Patient: Yes Hx Alcohol Use: No Hx Substance Use: Yes Last Used Substance Other:: 06/11/22 Preferred Language: Bur[place]ian Communication Ability: Effective 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 NAD. HENT: Normocephalic. Atraumatic. Eyes: PER. Conjunctiva pink, sclera clear. Neck: JVD. No carotid bruits. Heart: Irregularly irregular at 78 bpm. Grade II/ systolic murmur. No diastolic murmur. No rub. Lungs: Right basilar rales. No wheeze. Diminished throughout. Abdomen: +BS. Soft. Nontender. No masses or organomegaly. Extremities: No clubbing, cyanosis, or edema. Limited neurological examination is without focal deficits. Pulses: Posterior tibial=2/4. Results & Data Vital Signs (Past 12 Hours) Vital Signs Temp Pulse Pulse Resp BP BP Pulse Ox 10/07/24 11:12 37.3 C 77 18 177/123 H 96 10/07/24 11:10 69 10/07/24 10:20 76 190/142 H 10/07/24 09:46 81 193/117 H 10/07/24 09:32 72 198/116 H 10/07/24 08:56 36.7 C 77 20 192/118 H 97 10/07/24 08:37 73 18 195/132 H 97 10/07/24 08:37 10/07/24 08:37 10/07/24 07:33 73 13 195/132 H 99 10/07/24 06:30 89 184/129 H 10/07/24 06:00 64 18 200/134 H 97 10/07/24 05:30 62 16 198/123 H 98 10/07/24 05:00 67 16 180/124 H 95 10/07/24 04:30 66 16 185/177 H 99 10/07/24 04:00 71 14 180/132 H 97 10/07/24 03:41 95 10/07/24 03:40 61 10/07/24 03:33 73 16 173/123 H 95 10/07/24 03:16 36.7 C 67 20 192/113 H 96 Pulse Ox O2 Del Method O2 Del Method 10/07/24 11:12 Room Air 10/07/24 11:10 10/07/24 10:20 10/07/24 09:46 10/07/24 09:32 10/07/24 08:56 Room Air 10/07/24 08:37 Room Air 10/07/24 08:37 97 Room Air 10/07/24 08:37 Room Air 10/07/24 07:33 Room Air 10/07/24 06:30 10/07/24 06:00 10/07/24 05:30 Room Air 10/07/24 05:00 Room Air 10/07/24 04:30 Room Air 10/07/24 04:00 Room Air 10/07/24 03:41 Room Air 10/07/24 03:40 10/07/24 03:33 Room Air 10/07/24 03:16 Room Air Laboratory Results Cardiac Enzymes 10/07/24 10/07/24 10/07/24 Range/Units 03:34 05:25 09:11 AST 17 (13-39) U/L Troponin I High Sens 36.5 H 34.9 H 33.1 H (0-20) pg/ml B-Natriuretic Peptide 855 H (0-100) pg/ml Coagulation 10/07/24 10/07/24 Range/Units 03:34 05:25 PT 20.4 H (9.0-12.0) Seconds APTT 36 H (21-31) Seconds B-Natriuretic Peptide 855 H (0-100) pg/ml CBC 10/07/24 10/07/24 Range/Units 03:34 09:11 WBC 5.88 5.71 (4.8-10.8) K/ul RBC 3.72 L 3.57 L (4.70-6.10) M/uL Hgb 12.2 L 11.7 L (14.0-18.0) g/dl Hct 35.7 L 34.3 L (42.0-52.0) % Plt Count 154 152 (130-400) K/uL Neut # (Auto) 3.91 4.27 (1.40-6.50) K/uL Lymph # (Auto) 1.32 0.82 L (1.20-3.40) K/uL [place] # (Auto) 0.54 0.56 (0.11-0.59) K/uL Eos # (Auto) 0.07 0.02 (0.00-0.50) K/uL Baso # (Auto) 0.02 0.02 (0.00-0.20) K/uL Comprehensive Metabolic Panel 10/07/24 10/07/24 Range/Units 03:34 09:11 Sodium 137 137 (136-145) mmol/L Potassium 3.0 L 3.6 (3.5-5.1) mmol/L Chloride 104 105 (98-107) mmol/L Carbon Dioxide 28 27 (21-32) mmol/L BUN 12 10 (6-23) mg/dl Creatinine 1.12 0.99 (0.6-1.4) mg/dl Glucose 106 H 91 (70-99(Fasting)) mg/dl Calcium 8.9 8.6 (8.6-10.3) mg/dl AST 17 (13-39) U/L ALT 13 (7-52) U/L Alkaline Phosphatase 109 H (34-104) U/L Total Protein 8.3 (6.0-8.3) gm/dl Albumin 3.7 (3.4-5.0) gm/dl Intake and Output 10/06/24 10/07/24 10/07/24 22:59 06:59 14:59 Intake Total 300 / 300 150 / 150 Balance 300 / 300 150 / 150 Intake: IV 300 / 300 150 / 150 Doxycycline Hyclate 100 mg In 100 / 100 Dextrose 5% Mini-B 100 ml @ 50 mls/hr IV Q12H [facility] Rx#:[id number] Magnesium Sulfate / D5w 1 gm In 100 / 100 100 ml @ 50 mls/hr IV ONE ONE Rx#:[id number] Potassium Chloride / Wtr 10 meq 200 / 200 In 100 ml @ 100 mls/hr IV Q1H [facility] Rx#:[id number] cefTRIAXone SODIUM 2,000 mg In 50 / 50 50 ml @ 100 mls/hr IV Q24H [facility] Rx#:[id number] Other: Weight 74 kg 72.575 kg Weight Measurement Method Chair Scale Built in [facility] Patient Weight 10/08/24 06:59 Weight 72.575 kg Diagnostic Findings Telemetry: Atrial fibrillation/flutter in the 's EKG performed today on the floor revealed atrial fibrillation at 74 bpm with LVH, marked T abnormality laterally consistent with apical hypertrophic cardiomyopathy history.
--- NOTE | 2024-10-07 12:12 | Hospitalist Progress Note ---
Date of Service October 07, 2024 Assessment & Plan (1) SOB (shortness of breath): Plan: 64-year-old male with past medical history significant for hypothyroidism, hypertrophic cardiomyopathy, moderate mitral regurgitation, persistent atrial fibrillation, history of left atrial thrombus, hypertension chronic hepatitis C, presents with anxiety and shortness of breath. Patient says lately getting panic attacks but last night he was very anxious and panicky and was feeling short of breath which prompted him to come to the ER. Shortness of breath Possible panic attack Possible pneumonia-ruled out Patient presented to the hospital with episodes of anxiety, shortness of breath for several days. CT chest was done; no evidence of PE, dilated pulmonary arteries and and mild bilateral pleural effusion is seen Patient was seen by PCP for anxiety and insomnia; did not respond to trazodone. Considering Latuda pending hepatology confirmation due to hepatitis C treatment. Patient plans to follow-up with hepatology soon and follow-up with PCP Will stop antibiotics as patient do not have any signs or symptoms of pneumonia like cough, fever and pulmonary infiltrates Hypertensive urgency Continue on home lisinopril, metoprolol succinate Chlorthalidone 50 mg added Elevated troponin in setting of hypertensive urgency Possible demand ischemia High sensitive troponin of 36 on admission which down trended EKG shows atrial fibrillation with nonspecific ST and T wave changes Hypertrophic cardiomyopathy Moderate mitral regurgitation Monitor for volume overload Follows with cardiology Atrial fibrillation On metoprolol succinate and warfarin INR 2 Will monitor Hypokalemia Will replace Continue home potassium supplements Follow labs Hepatitis C On Epclusa Follows with hepatology DVT prophylaxis On Coumadin Follow PT/INR Disposition Telemetry Full code. Please note the above document was generated using voice recognition software. It may contain grammatical, syntax or spelling errors. Any formal questions or concerns about the content, text or information contained within the body of this dictation should be directly addressed to the provider for clarification Admission and Anticipated Discharge Date Admission Date: October 07, 2024 Subjective Patient seen and examined at bedside. Comfortable; not in distress. Denies fever, chills, chest pain, shortness of breath, abdominal pain or urinary symptoms. No significant overnight events Review of Systems Review of Systems: All systems reviewed & are unremarkable except as noted in Subjective Physical Exam Physical Exam: General- Not in distress. Head- atraumatic Eyes- PERRL. ENT- oropharynx clear Neck- supple, no JVD. Lungs- clear to auscultation no wheezing or crackles. Heart- regular rhythm; no murmur, no gallop. Abdomen- normal bowel sounds, soft, nontender, no distension Extremities- no pretibial edema, no erythema seen Neuro- alert, oriented PERRL, no facial palsy; no dysarthria; moves extremities Results & Data Results & Data Vital Signs (Past 12 Hours) Vital Signs Temp Pulse Pulse Resp BP BP Pulse Ox 10/07/24 11:55 79 192/127 H 10/07/24 11:12 37.3 C 77 18 177/123 H 96 10/07/24 11:10 69 10/07/24 10:20 76 190/142 H 10/07/24 09:46 81 193/117 H 10/07/24 09:32 72 198/116 H 10/07/24 08:56 36.7 C 77 20 192/118 H 97 10/07/24 08:37 73 18 195/132 H 97 10/07/24 08:37 10/07/24 08:37 10/07/24 07:33 73 13 195/132 H 99 10/07/24 06:30 89 184/129 H 10/07/24 06:00 64 18 200/134 H 97 10/07/24 05:30 62 16 198/123 H 98 10/07/24 05:00 67 16 180/124 H 95 10/07/24 04:30 66 16 185/177 H 99 10/07/24 04:00 71 14 180/132 H 97 10/07/24 03:41 95 10/07/24 03:40 61 10/07/24 03:33 73 16 173/123 H 95 10/07/24 03:16 36.7 C 67 20 192/113 H 96 Pulse Ox O2 Del Method O2 Del Method 10/07/24 11:55 10/07/24 11:12 Room Air 10/07/24 11:10 10/07/24 10:20 10/07/24 09:46 10/07/24 09:32 10/07/24 08:56 Room Air 10/07/24 08:37 Room Air 10/07/24 08:37 97 Room Air 10/07/24 08:37 Room Air 10/07/24 07:33 Room Air 10/07/24 06:30 10/07/24 06:00 10/07/24 05:30 Room Air 10/07/24 05:00 Room Air 10/07/24 04:30 Room Air 10/07/24 04:00 Room Air 10/07/24 03:41 Room Air 10/07/24 03:40 10/07/24 03:33 Room Air 10/07/24 03:16 Room Air
[2024-10-07] MEDS ORDERED: FUROSEMIDE 20 MG TAB PO SCH (12:15)
[2024-10-07] MEDS: SPIRONOLACTONE 25 MG TAB PO SCH (12:51)
[2024-10-07] MEDS: CHLORTHALIDONE 25 MG TAB PO SCH ×2 (12:54→13:12)
[2024-10-07] MEDS: SOFOSBUVIR/VELPATASVIR 400mg/100mg TAB PO SCH (15:42)
[2024-10-07] MEDS: WARFARIN SOD 5 MG TAB PO SCH (17:03)
[2024-10-07] MEDS: oxyCODONE HCL IR 5 MG TAB (IMMEDIATE RELEASE) PO STA (17:16)
[2024-10-07] MEDS: LURASIDONE HCL 20 MG TAB PO SCH (20:29)
[2024-10-07] MEDS: NITROGLYCERIN 2% OINTMENT 30GM TUBE EXT SCH (22:02)
[2024-10-08] MEDS: oxyCODONE HCL IR 5 MG TAB (IMMEDIATE RELEASE) PO STA (03:13)
[2024-10-08] MEDS: ENALAPRILAT 0.625 MG in SYRINGE 9.5 ML IV ONE (05:32)
[2024-10-08 06:39] LABS: Basophils # (auto) 0.02 K/uL (0.00-0.20); Basophils % (auto) 0.4 %; Eosinophils # (auto) 0.02 K/uL (0.00-0.50); Eosinophils % (auto) 0.4 %; Hematocrit (blood only) 37.3 % (42.0-52.0); Immature Granulocytes # (auto) 0.01 K/uL (0.01-0.20); Immature Granulocytes % (auto) 0.2 %; Lymphocytes # (auto) 0.89 K/uL (1.20-3.40); Lymphocytes % (auto) 16.6 %; Mean Corpuscular Hemoglobin 32.7 pg (25.0-34.0); Mean Corpuscular Hgb Conc 34.9 g/dL (32.0-36.0); Mean Platelet Volume 9.9 fL (9.4-12.4); Monocytes # (auto) 0.46 K/uL (0.11-0.59); Monocytes % (auto) 8.6 %; Neutrophils # (auto) 3.97 K/uL (1.40-6.50); Neutrophils % (auto) 73.8 %; Platelet Count 157 K/uL (130-400); RDW Coefficient of Variation 13.7 % (11.5-14.5); RDW Standard Deviation 47.4 fL (36.4-46.3); Red Blood Count 3.97 M/uL (4.70-6.10); White Blood Count 5.37 K/ul (4.8-10.8)
[2024-10-08 06:56] LABS: BUN Creatinine Ratio 8.8 (10-20); Calcium 9.4 mg/dl (8.6-10.3); Creatinine Clr Calc Pharmacy 66.9 ml/min; Potassium 3.7 mmol/L (3.5-5.1)
[2024-10-08 07:06] LABS: INR 1.7 (0.9-1.1); Prothrombin Time 17.5 Seconds (9.0-12.0)
[2024-10-08 07:39] VITALS: RESP 20
--- NOTE | 2024-10-08 10:25 | Discharge Summary ---
Date of Service October 08, 2024 Admission HPI Per Admitting Provider 64-year-old male with past medical history significant for hypothyroidism, hypertrophic cardiomyopathy, moderate mitral regurgitation, persistent atrial fibrillation, history of left atrial thrombus, hypertension chronic hepatitis C, presents with anxiety and shortness of breath. Patient says lately getting panic attacks but last night he was very anxious and panicky and was feeling short of breath which prompted him to come to the ER. Currently in the ER he says is feeling better. Currently no anxiety. Denies any chest pain. Denies any headache. No dizziness. No runny nose or sore throat. No cough. No fe raul. No nausea or abdominal pain. Normal bowel and bladder movements. Currently resting comfortably. Blood pressures running high. Patient states checks blood pressure once a week and usually slightly above normal as per patient. Past medical history . As mentioned above. Past surgical history. Colonoscopy. Social history. . Smokes 0.3 pack a day for 20 years. No alcohol use. Uses marijuana as per [facility] Family history. Mother had cancer. Admission Exam Per Admitting Provider General- Not in distress. Head- atraumatic Eyes- PERRL. ENT- oropharynx clear Neck- supple, no JVD. Lungs- clear to auscultation no wheezing or crackles. Heart- regular rhythm; no murmur, no gallop. Abdomen- normal bowel sounds, soft, nontender, no distension Extremities- no pretibial edema, no erythema seen Neuro- alert, oriented PERRL, no facial palsy; no dysarthria; moves extremities Principal Diagnosis Shortness of breath Possible panic attack Possible pneumonia-ruled out Discharge Exam Constitutional: WD/WN, vitals as above, NAD, sitting up in bed, pleasant, conversing easily Respiratory: normal respiratory effort, lungs clear to auscultation, no wheeze, rales, rhonchi. Normal insp/exp effort, no accessory muscle use Cardiovascular: RRR, no murmur, no edema Vessels: no JVD or carotid bruit Chest: normal inspection of chest Abdomen: normal bowel sounds, soft, nontender, no hepatosplenomegaly Musculoskeletal: no cyanosis or clubbing, extremities motor strength 5/5 Skin: no rashes, warm and dry normal turgor Neurologic: PERRL, EOMI, accommodation nl, no face palsy, no dysarthria CN's II-XI intact bilaterally and moves all extremities Psychiatric: A+Ox3, euthymic affect Discharge Data Allergies Allergy/AdvReac Type Severity Reaction Status Date / Time No Known Allergies Allergy Verified 08/26/23 00:28 Consultations 10/07/24 04:29 ED Decision to Admit Stat 10/07/24 08:37 Consult Cardiology Routine Ordered Studies 10/07/24 05:47 CT angio chest PE protocol Urgent Hospital Course (1) SOB (shortness of breath): 64-year-old male with past medical history significant for hypothyroidism, hypertrophic cardiomyopathy, moderate mitral regurgitation, persistent atrial fibrillation, history of left atrial thrombus, hypertension chronic hepatitis C, presents with anxiety and shortness of breath. Shortness of breath Possible panic attack Possible pneumonia-ruled out Possible acute on chronic diastolic heart failure Hypertensive urgency Patient presented to the hospital with episodes of anxiety, shortness of breath for several days. CT chest was done; no evidence of PE, dilated pulmonary arteries and and mild bilateral pleural effusion is seen During the hospitalization, patient was admitted to telemetry floor. Cardiology was consulted for comanagement. He underwent echocardiogram found to have EF of 60 to 65%; also found to have dilation of inferior vena cava with reduced collapsibility with sniff indicates an elevated right atrial pressure. Chlorthalidone 25 mg and spironolactone 25 mg was added as per recommendation by cardiology. Patient reported significant improvement in his symptoms of shortness of breath. His blood pressure also gradually improved during the hospitalization. Discussion was done with patient regarding managing blood pressure at home and following up with PCP with blood pressure log. Also discussed obtaining follow-up BMP with his PCP to monitor his electrolyte, kidney function since the addition of spironolactone and chlorthalidone. For possible panic attack, discussed with patient to follow-up with PCP to consider addition of SSRI or other alternative agent if he continues to experience shortness of breath. Please note the above document was generated using voice recognition software. It may contain grammatical, syntax or spelling errors. Any formal questions or concerns about the content, text or information contained within the body of this dictation should be directly addressed to the provider for clarification Total Time Total Time Spent Total Time Spent (In Minutes): 45 Total Time Includes: Examination of the Patient, Discharge Planning, Medication Reconciliation, Communication With Other Providers and Other Discharge Plan Discharge Items Patient Disposition: Home - Self-Care Reason For Visit: SOB, HTN URGENCY Discharge Diagnosis: Hypertensive urgency Condition on Discharge: Good Activity: Resume your previous activity Non-emergency contact: Primary Care Provider Call non-emergency contact if: you have any medication questions and your symptoms worsen Follow-up/Referrals: Chan Light MD [Primary Care Provider] - Sandra Simental MD [Outside Practitioners] - (Date & Time 10/15/2024 9:00 AM Provider: Christiano Velazquez MD Family Practice, [facility] ) Diet: Regular Addtl Attending Provider Instructions: You were admitted to the hospital with high blood pressure; you were seen by cardiology during the hospitalization. They recommend following medication as addition; Take chlorthalidone 25 mg once a day. Take spironolactone 25 mg once a day An appointment is set up with your PCP. Please follow up with them and get blood work to monitor your kidney function and electrolytes. Please check your blood pressure daily at home on a sitting position with your legs uncrossed and arm rested. Please make a log of it and follow-up with your primary care doctor and cardiology for adjustment regarding the medications. Pending Studies at Discharge: No Stand-Alone Forms: [facility], Smoking Cessation Medications and DC Order Prescriptions: New chlorthalidone 25 mg Tablet 25 mg PO QAM 30 Days Qty: 30 0RF spironolactone 25 mg Tablet 25 mg PO DAILY 30 Days Qty: 30 0RF Continued lisinopril 20 mg tablet 40 mg PO DAILY metoprolol succinate 100 mg tablet extended release 24 hr 100 mg PO BID levothyroxine 88 mcg tablet 88 mcg PO DAILY tamsulosin 0.4 mg capsule 0.4 mg PO DAILY warfarin 5 mg tablet 5 mg PO UD Rx Instructions: Warfarin 2.5mg po daily on Tuesday and Warfarin 5mg po daily all other days potassium chloride 10 mEq tablet,ER particles/crystals 10 meq PO DAILY lurasidone 40 mg tablet 40 mg PO HS sofosbuvir-velpatasvir [Epclusa] 400-100 mg tablet 1 tab PO DAILY Discharge Orders: Discharge Order (Routine); Ordered 10/08/24 Ordered By: Jersey Martinez Admission Data Admit Date/Time: 10/07/24 05:36 Attending Provider: Jersey Martinez Admit Provider: Palepu,Bryan P. Primary Care Provider: Chan Light Other Providers: Bryan Bajwa; Ander Barrios Other Interventions: Discharge Summary Assessment (RN) Last Done: 10/08/24 09:33
[2024-10-08 11:43] VITALS: BP 151/103; PULSE 65; TEMP 98.1; O2SAT 100
--- NOTE | 2024-10-08 11:57 | Cardiology Progress Note ---
Date of Service October 08, 2024 Assessment & Plan (1) Hypertensive urgency: (2) Elevated troponin: (3) Apical variant hypertrophic cardiomyopathy: (4) Persistent atrial fibrillation: (5) Diastolic dysfunction: (6) Mitral regurgitation: (7) Labile hypertension: (8) Pulmonary hypertension: (9) Thrombus of left atrial appendage: Plan 10/07/24: Uncontrolled hypertension. Patient with longstanding hypertension and chronic hypokalemia despite chronic HARINI inhibitor therapy and supplemental potassium, without use of diuretic and without overt loss - Add spironolactone 25 mg/day starting now - Add chlorthalidone 25 mg/day starting now - Continue lisinopril 40 mg/day and metoprolol 100 mg twice a day Persistent atrial fibrillation. Rates acceptably controlled on current dose of metoprolol succinate. History of LA appendage thrombus x3 on ANGE, most recently in Jun 2022. Patient chronically prescribed Coumadin anticoagulation managed by the [facility] anticoagulation clinic Moderate to severe mitral insufficiency. Pulmonary hypertension secondary to left heart issues. See above. Elevated troponin. Likely secondary to the above. Apical hypertrophic cardiomyopathy with diastolic left ventricular dysfunction. Patient was scheduled for HCM stress at [facility] tomorrow to exclude left ventricular outflow tract obstruction. This will need to be postponed. 10/08/24: BP remains high this morning, but trending lower. Spironolactone 25 mg and chlorthalidone 25 mg added yesterday. Hopefully BP will continue to improve over the next few days. Stable labs today. Potassium improved. Continue lisinopril 40 mg and metoprolol 100 mg BID. Consider adding amlodipine if needed? Will need repeat BMP later this week. Patient admits to significant anxiety and panic attacks. Was being treated as an outpatient, but he stopped his medication? Will need f/u with PCP and/or psych. IF BP trending lower after AM meds, consider discharge after lunch if feeling well. Continue Coumadin. INR 1.7 today. Will need f/u with anticoag clinic Chronic afib - rates controlled. Continue metoprolol and coumadin Case discussed with Dr. Kuldeep Zacarias spent a total of 40 minutes on the date of service in preparation, delivery, and documentation of the care provided to this patient, excluding any time spent in the performance of separately billed services. Akilah Gipson PA-C Department of Cardiology, [facility] This chart was completed in part utilizing Speech Voice Recognition Software. Grammatical errors, random word insertions, pronoun errors, and incomplete sentences are an occasional consequence of this system due to software limitations, ambient noise, and hardware issues. Any formal questions or concerns about the content, text, or information contained within the body of this dictation should be directly addressed to the provider for clarification. Admission and Anticipated Discharge Date Admission Date: October 07, 2024 Supervising Physician Co-Signing Physician Notes Patient was seen and personally examined. Full assessment as outlined above, personally endorsed. No cardiac complaints and patient comfortable blood pressures high but trend high in stressful settings including office visits and hospitalizations. Medication adjustments has begun. Stable for discharge today Patient had been scheduled for stress echocardiography today at [facility] in [place] as follow-up for apical hypertrophic cardiomyopathy. Will make arrangements for rescheduling Subjective Patient feeling well this morning. He reports no recurrent chest tightness of SOB. His "anxiety" also improved. BP remains high this morning before meds. He voices no concerns, complaints today. wants to go home today. Review of Systems Review of Systems: All systems reviewed & are unremarkable except as noted in HPI & below Physical Exam Physical Exam: General: A&Ox3. NAD. HENT: Normocephalic. Atraumatic. Eyes: PER. Conjunctiva pink, sclera clear. Neck: JVD. No carotid bruits. Heart: Irregularly irregular at 78 bpm. Grade II/ systolic murmur. No diastolic murmur. No rub. Lungs: Right basilar rales. No wheeze. Diminished throughout. Abdomen: +BS. Soft. Nontender. No masses or organomegaly. Extremities: No clubbing, cyanosis, or edema. Limited neurological examination is without focal deficits. Pulses: Posterior tibial=2/4. Results & Data Vital Signs (Past 12 Hours) Vital Signs Temp Pulse Pulse Resp BP BP Pulse Ox 10/08/24 11:42 36.7 C 65 20 151/103 H 100 10/08/24 09:33 36.6 C 73 20 167/137 H 97 10/08/24 08:37 10/08/24 07:38 36.6 C 73 20 167/137 H 97 10/08/24 05:58 76 183/125 H 10/08/24 04:57 80 192/137 H 10/08/24 04:50 80 18 192/137 H 10/08/24 04:22 76 186/113 H 10/08/24 02:53 36.7 C 78 18 173/106 H 99 10/08/24 00:10 67 186/110 H Pulse Ox O2 Del Method O2 Del Method 10/08/24 11:42 Room Air 10/08/24 09:33 10/08/24 08:37 97 Room Air 10/08/24 07:38 Room Air 10/08/24 05:58 10/08/24 04:57 10/08/24 04:50 10/08/24 04:22 10/08/24 02:53 Room Air 10/08/24 00:10 Laboratory Results Cardiac Enzymes 10/07/24 10/07/24 Range/Units 14:06 20:42 Troponin I High Sens 34.7 H 35.7 H (0-20) pg/ml Coagulation 10/08/24 Range/Units 06:11 PT 17.5 H (9.0-12.0) Seconds CBC 10/08/24 Range/Units 06:11 WBC 5.37 (4.8-10.8) K/ul RBC 3.97 L (4.70-6.10) M/uL Hgb 13.0 L (14.0-18.0) g/dl Hct 37.3 L (42.0-52.0) % Plt Count 157 (130-400) K/uL Neut # (Auto) 3.97 (1.40-6.50) K/uL Lymph # (Auto) 0.89 L (1.20-3.40) K/uL [place] # (Auto) 0.46 (0.11-0.59) K/uL Eos # (Auto) 0.02 (0.00-0.50) K/uL Baso # (Auto) 0.02 (0.00-0.20) K/uL Comprehensive Metabolic Panel 10/08/24 Range/Units 06:11 Sodium 135 L (136-145) mmol/L Potassium 3.7 (3.5-5.1) mmol/L Chloride 99 (98-107) mmol/L Carbon Dioxide 29 (21-32) mmol/L BUN 10 (6-23) mg/dl Creatinine 1.13 (0.6-1.4) mg/dl Glucose 105 H (70-99(Fasting)) mg/dl Calcium 9.4 (8.6-10.3) mg/dl Intake and Output 10/07/24 10/08/24 10/08/24 22:59 06:59 14:59 Intake Total 120 / 420 Balance 120 / 420 Intake: Oral 120 / 270 Other: # Unmeasured Voids 1 1 Weight 72.574 kg 72.574 kg Weight Measurement Method Built in [facility] Patient Weight 10/09/24 06:59 Weight 72.574 kg Diagnostic Findings Telemetry reviewed: Afib with controlled rates in the ' Medications Administered Current Inpatient Medications Chlorthalidone (Chlorthalidone 25 Mg Tab) 25 mg PO QAM [facility] Stop: 11/06/24 12:59 Last Admin: 10/08/24 06:38 Dose: 25 mg Levothyroxine Sodium (Levothyroxine Sodium 88 Mcg Tablet) 88 mcg PO DAILYBB [facility] Stop: 11/06/24 08:44 Last Admin: 10/08/24 04:09 Dose: 88 mcg Lisinopril (Lisinopril 40 Mg Tab) 40 mg PO DAILY [facility] Stop: 11/06/24 08:59 Last Admin: 10/08/24 06:37 Dose: 40 mg Lurasidone HCl (Lurasidone Hcl 20 Mg Tab) 40 mg PO HS [facility] Stop: 11/06/24 20:59 Last Admin: 10/07/24 20:29 Dose: 40 mg Metoprolol Succinate (Metoprolol Succ 50mg Ext Rel Tab) 100 mg PO BID [facility] Stop: 11/06/24 08:59 Last Admin: 10/08/24 06:38 Dose: 100 mg Nitroglycerin (Nitroglycerin Sl 0.4 Mg/Tab Tab) 0.4 mg SL Q5M PRN PRN Reason: Chest Pain Stop: 11/06/24 08:36 Polyethylene Glycol (Polyethylene (Miralax) 17 Gm Pack) 17 gm PO DAILY PRN PRN Reason: Constipation Stop: 11/06/24 08:36 Potassium Chloride (Potassium Chloride 10 Meq Tabcr) 10 meq PO DAILY [facility] Stop: 11/06/24 08:59 Last Admin: 10/08/24 08:43 Dose: 10 meq Sofosbuvir/Velpatasvir (Sofosbuvir/Velpatasvir 400mg/100mg Tab) 1 tab PO DAILY [facility] Stop: 11/06/24 15:14 Last Admin: 10/08/24 08:43 Dose: 1 tab Spironolactone (Spironolactone 25 Mg Tab) 25 mg PO DAILY [facility] Stop: 11/06/24 12:29 Last Admin: 10/08/24 08:43 Dose: 25 mg Tamsulosin HCl (Tamsulosin Hcl 0.4 Mg Cap) 0.4 mg PO DAILY [facility] Stop: 11/06/24 08:59 Last Admin: 10/08/24 08:43 Dose: 0.4 mg Warfarin Sodium (Warfarin Sod 5 Mg Tab) 5 mg PO [id number]@1600 [facility] Stop: 11/06/24 15:59 Last Admin: 10/07/24 17:03 Dose: 5 mg Warfarin Sodium (Warfarin Sod 2.5 Mg Tab) 2.5 mg PO [id number]@1600 [facility] Stop: 11/07/24 15:59
--- NOTE | 2024-10-08 13:36 | Electrocardiogram Report ---
Test Reason : Blood Pressure : */* mmHG Vent. Rate : 71 BPM Atrial Rate : * BPM P-R Int : * ms QRS Dur : 90 ms QT Int : 404 ms P-R-T Axes : * -23 156 degrees QTcB Int : 439 ms Atrial fibrillation Moderate voltage criteria for LVH, may be normal variant Abnormal ECG When compared with ECG of 27-Aug-2023 06:14, Nonspecific T wave abnormality now evident in Inferior leads Confirmed by Nilton Ruiz ([id number]) on 10/08/2024 1:35:55 PM Referred By: REFERRED SELF Confirmed By: Nilton Ruiz
[2024-10-08] MEDS ORDERED: WARFARIN SOD 2.5 MG TAB PO SCH (16:00)
== END 2024-10-08 12:57 | disposition home or self-care (01) | DRG 880 ==
LOC: ED 03:07 → INTOOBSV 05:36 → 2S 05:36